=== PATIENT | male | born 1935 | race Caucasian/White ===

== ENCOUNTER → 2017-08-28 08:04 | Outpatient (CLI) | payer MEDICARE, BC, SELFPAY ==
[2017-08-28 09:46] LABS: Absolute Lymphocyte Count 1.55 X10^3/ul (0.83-4.51); Absolute Neutrophil Count 3.2 X10^3/uL (2.0-7.7); Basophil# 0.02 X10^3/uL; Basophil% 0.3 % (0-1); Eosinophil# 0.44 X10^3/uL; Eosinophils% 7.3 % (0-5); Hematocrit 51.4 % (40-54); Hemoglobin 16.9 g/dl (13.0-16.5); Lymphocyte # 1.55 X10^3/ul (4.0); Lymphocyte % 25.6 % (19-41); Mean Corp Hgb Conc 32.9 g/gl (32-36); Mean Corpuscular Hgb 31.6 pg (27.0-32.0); Mean Corpuscular Volume 96.3 fL (80-94); Mean Platelet Vol. 10.6 fl (6.2-12.0); Monocyte# 0.81 X10^3/uL; Monocyte% 13.4 % (0-10); Neutrophil # 3.22 X10^3/uL (2.7-7.7); Neutrophil % 53.2 % (47-70); Platelet Count 220 K/mm3 (150-450); RBC Distribution Width SD 49.3 fl (35.1-43.9); Red Blood Count 5.34 M/mm3 (4.6-6.2); White Blood Count 6.1 K/mm3 (4.4-11.0)
[2017-08-28 09:49] LABS: POSITIVE COUNT NO; POSITIVE DIFFERENTIAL NO; POSITIVE MORPHOLOGY NO
[2017-08-28 10:12] LABS: AST(SGOT) 23 U/L (15-37); Alanine Aminotransfer ALT/SGPT 28 U/L (16-61); Alkaline Phosphatase 76 U/L (45-117); Anion Gap 6 (5-15); BUN 22 mg/dL (7-18); BUN/Creat Ratio 17.2 RATIO (10-20); Calcium,Total 9.1 mg/dL (8.5-10.1); Chloride 98 mmol/L (98-107); Cholesterol 188 mg/dL (200); Creatinine, Serum 1.28 mg/dL (0.70-1.30); EST Glomerular Filtration Rate 58 mL/min (>60); Est Glom Filt Rate - Afr Amer 70 mL/min (>60); Globulin 4.1 g/dL (2.2-4.2); Glucose 82 mg/dL (74-106); High Density Lipoprotein 37 mg/dL; Potassium 3.9 mmol/L (3.5-5.1); Protein, Total 8.1 g/dL (6.4-8.2); Sodium Level 134 mmol/L (136-145); Triglycerides 160 mg/dL; Very Low Density Lipoprotein 32 mg/dL (5-40)
[2017-08-29 09:32] LABS: Vitamin D,25 Hydroxy 55.6 ng/mL (29.95-100.01)
== END ==
PROVIDERS: Family Provider Family Medicine; PCP Family Medicine; Visit Provider Family Medicine
DX: Z00.00 Encounter for general adult medical examination without abnormal findings (principal); L40.9 Psoriasis, unspecified; R29.890 Loss of height
CPT/HCPCS: 36415; 80053; 80061; 82306; 84443; 85025

== ENCOUNTER → 2018-01-22 10:06 | Outpatient (CLI) | payer MEDICARE, BC, SELFPAY ==
[2018-01-22 12:21] LABS: ALB/GLOB Ratio 0.9 RATIO (0.9-2.4); AST(SGOT) 21 U/L (15-37); Alanine Aminotransfer ALT/SGPT 26 U/L (16-61); Albumin, Serum 3.8 g/dL (3.2-5.0); Alkaline Phosphatase 76 U/L (45-117); Anion Gap 5 (5-15); BUN 21 mg/dL (7-18); BUN/Creat Ratio 17.4 RATIO (10-20); Chloride 100 mmol/L (98-107); Creatinine, Serum 1.21 mg/dL (0.70-1.30); EST Glomerular Filtration Rate 61 mL/min (>60); Est Glom Filt Rate - Afr Amer 74 mL/min (>60); Globulin 4.1 g/dL (2.2-4.2); Glucose 93 mg/dL (74-106); Potassium 4.1 mmol/L (3.5-5.1); Protein, Total 7.9 g/dL (6.4-8.2); Sodium Level 136 mmol/L (136-145)
[2018-01-22 12:46] LABS: Hematocrit 47.3 % (40-54); Hemoglobin 15.7 g/dl (13.0-16.5); Mean Corp Hgb Conc 33.2 g/gl (32-36); Mean Corpuscular Hgb 31.8 pg (27.0-32.0); Mean Corpuscular Volume 95.7 fL (80-94); Mean Platelet Vol. 10.7 fl (6.2-12.0); Platelet Count 222 K/mm3 (150-450); RBC Distribution Width CV 14.2 % (11.6-14.6); RBC Distribution Width SD 48.6 fl (35.1-43.9); Red Blood Count 4.94 M/mm3 (4.6-6.2); Scan Indicated on CBC? Y/N NO; White Blood Count 6.7 K/mm3 (4.4-11.0)
[2018-01-29 20:07] LABS: QNTFERON TB Ag Minus Nil Value < 0 IU/mL (.); QNTFERON TB Ag Value 0.03 IU/mL (.); QNTFERON TB Mitogen Value > 10.00 IU/mL (.); QNTFERON TB Nil Value 0.06 IU/mL (.)
[2018-01-30 14:09] LABS: QNTIFERON TB Gold Negative (Negative)
== END ==
PROVIDERS: Family Provider Family Medicine; PCP Family Medicine; Visit Provider Dermatology Pediatric Dermatology
DX: L40.0 Psoriasis vulgaris (principal); Z79.899 Other long term (current) drug therapy
CPT/HCPCS: 36415; 80053; 85027; 86480

== ENCOUNTER → 2018-01-28 15:24 | Outpatient (CLI) | payer MEDICARE, BC, SELFPAY ==
[2018-01-30 05:08] LABS: HEPATITIS B SURFACE AG Negative (Negative); Hepatitis A AB, Total Positive (Negative); Hepatitis A IgM Antibody Negative (Negative); Hepatitis B Core AB IgM Negative (Negative); Hepatitis B Core Ab Total Negative (Negative); Hepatitis C Ab <0.1 s/co ratio (0.0-0.9)
[2018-01-30 13:43] LABS: Hep B Surface Antibodies Non Reactive (.)
== END ==
PROVIDERS: Family Provider Family Medicine; PCP Family Medicine; Visit Provider Dermatology Pediatric Dermatology
DX: L40.0 Psoriasis vulgaris (principal); Z79.899 Other long term (current) drug therapy
CPT/HCPCS: 86704; 86705; 86706; 86708; 86709; 86803; 87340

== ENCOUNTER → 2018-08-28 10:55 | Outpatient (CLI) | payer MEDICARE, BC, SELFPAY ==
[2018-08-28 12:47] LABS: Microalbumin,Random Urine 16.2 mg/L (NO RANGE EST.); Microalbumin:Creatinine Ratio 9.8 mg/g CRE (<30 mg/g CRE)
[2018-08-28 12:56] LABS: Absolute Lymphocyte Count 1.85 X10^3/ul (0.83-4.51); Absolute Neutrophil Count 5.4 X10^3/uL (2.0-7.7); Basophil# 0.02 X10^3/uL; Basophil% 0.2 % (0-1); Eosinophils% 4.7 % (0-5); Hematocrit 48.9 % (40-54); Hemoglobin 16.3 g/dl (13.0-16.5); Lymphocyte # 1.85 X10^3/ul (4.0); Lymphocyte % 21.7 % (19-41); Mean Corp Hgb Conc 33.3 g/gl (32-36); Mean Corpuscular Volume 96.1 fL (80-94); Mean Platelet Vol. 10.8 fl (6.2-12.0); Monocyte# 0.86 X10^3/uL; Monocyte% 10.1 % (0-10); Neutrophil # 5.38 X10^3/uL (2.7-7.7); Neutrophil % 63.1 % (47-70); Platelet Count 244 K/mm3 (150-450); Red Blood Count 5.09 M/mm3 (4.6-6.2); White Blood Count 8.5 K/mm3 (4.4-11.0)
[2018-08-28 13:00] LABS: POSITIVE COUNT NO; POSITIVE DIFFERENTIAL NO; POSITIVE MORPHOLOGY NO
[2018-08-28 13:16] LABS: ALB/GLOB Ratio 1.1 RATIO (0.9-2.4); AST(SGOT) 26 U/L (15-37); Alanine Aminotransfer ALT/SGPT 26 U/L (16-61); Albumin, Serum 4.1 g/dL (3.2-5.0); Alkaline Phosphatase 74 U/L (45-117); Anion Gap 10 (5-15); BUN 24 mg/dL (7-18); BUN/Creat Ratio 20.5 RATIO (10-20); Calcium,Total 9.3 mg/dL (8.5-10.1); Chloride 101 mmol/L (98-107); Creatinine, Serum 1.17 mg/dL (0.70-1.30); EST Glomerular Filtration Rate 64 mL/min (>60); Est Glom Filt Rate - Afr Amer 77 mL/min (>60); Globulin 3.6 g/dL (2.2-4.2); Glucose 73 mg/dL (74-106); Potassium 4.4 mmol/L (3.5-5.1); Protein, Total 7.7 g/dL (6.4-8.2); Sodium Level 139 mmol/L (136-145)
[2018-08-28 13:24] LABS: Vitamin D,25 Hydroxy 48.7 ng/mL (29.95-100.01)
== END ==
PROVIDERS: Family Provider Family Medicine; PCP Family Medicine; Referring Provider Family Medicine; Visit Provider Family Medicine
DX: L40.9 Psoriasis, unspecified (principal); I10 Essential (primary) hypertension; R79.89 Other specified abnormal findings of blood chemistry; D58.2 Other hemoglobinopathies
CPT/HCPCS: 36415; 80053; 82043; 82306; 82570; 84443; 85025

== ENCOUNTER → 2019-08-12 10:19 | Outpatient (CLI) | payer MEDICARE, BC, SELFPAY ==
--- NOTE | 2019-08-12 10:28 | RAD_ITS ---
HISTORY: Left hip pain that radiates down leg. AP pelvis and 2 views of the left hip. Findings: Pelvic phleboliths. Bilateral femoral acetabular osteoarthritis. Iliac wing, ischial tuberosity, and trochanteric enthesophytes. Bowel gas pattern in the pelvis is normal. No bones are fractured. RAD/HIP, UNI W/ Pelvis 2-3 Views IMPRESSION: Mild bilateral hip arthritis without fracture or dislocation. at 0553 Reported and signed by: Angel Alicea MD Electronically Signed: Angel Alicea MD at 5:52 EST Tel , Service support ,
[2019-08-12 10:31] LABS: Bacteria 0 SEEN /hpf (None Seen); Mucous, Urine 0 SEEN /hpf (<or=2+); Red Blood Cells-Urine 0 SEEN /hpf (0-5); White Blood Cells 0 SEEN /hpf (0-5)
[2019-08-12 12:26] LABS: Absolute Neutrophil Count 4.5 X10^3/uL (2.0-7.7); Basophil# 0.04 X10^3/uL; Basophil% 0.5 % (0-1); Hematocrit 51.4 % (40-54); Hemoglobin 16.7 g/dL (13.0-16.5); Lymphocyte % 25.2 % (19-41); Mean Corp Hgb Conc 32.5 g/dL (32-36); Mean Corpuscular Hgb 30.9 pg (27.0-32.0); Mean Corpuscular Volume 95.2 fL (80-94); Mean Platelet Vol. 10.8 fl (6.2-12.0); Monocyte% 10.6 % (0-10); NRBC Flagged by Analyzer 0 % (0-5); Neutrophil # 4.48 X10^3/uL (2.7-7.7); Neutrophil % 59.4 % (47-70); Platelet Count 258 K/mm3 (150-450); RBC Distribution Width CV 13.4 % (11.6-14.6); RBC Distribution Width SD 46.6 fl (35.1-43.9); White Blood Count 7.5 K/mm3 (4.4-11.0)
[2019-08-12 12:27] LABS: Color, Urine Yellow (Yellow); Glucose, Dipstick Normal (Normal); Ketone-Dipstick Negative (Negative); Leukocyte Esterase-Dipstick Negative /ul (Negative); Nitrite-Dipstick Negative (Negative); Occult Blood-Urine Negative /ul (Negative); Protein-Dipstick Negative (Negative); Urine Bilirubin Dipstick Negative (Negative); Urine Clarity Clear (Clear); Urine Urobilinogen Normal (Normal)
[2019-08-12 12:39] LABS: Squamous Epithelial Cells - UA 0-5 SEEN /hpf (0-5)
[2019-08-12 12:42] LABS: AST(SGOT) 22 U/L (15-37); Alanine Aminotransfer ALT/SGPT 27 U/L (16-61); Albumin, Serum 4.1 g/dL (3.2-5.0); Alkaline Phosphatase 74 U/L (45-117); Anion Gap 5 (5-15); BUN 20 mg/dL (7-18); BUN/Creat Ratio 15.5 RATIO (10-20); CRP < 2.90 mg/L (0.0-3.0); Calcium,Total 9.3 mg/dL (8.5-10.1); Chloride 99 mmol/L (98-107); Creatinine, Serum 1.29 mg/dL (0.70-1.30); EST Glomerular Filtration Rate 57 mL/min (>60); Est Glom Filt Rate - Afr Amer 69 mL/min (>60); Globulin 4.1 g/dL (2.2-4.2); Glucose 88 mg/dL (74-106); Potassium 4.1 mmol/L (3.5-5.1); Protein, Total 8.2 g/dL (6.4-8.2); Sodium Level 134 mmol/L (136-145)
== END ==
PROVIDERS: PCP Family Medicine; Referring Provider Family Medicine; Visit Provider Family Medicine
DX: R10.32 Left lower quadrant pain (principal)
CPT/HCPCS: 36415; 73502; 80053; 81001; 85025; 86140

== ENCOUNTER → 2019-08-14 06:46 | Outpatient (CLI) | payer MEDICARE, BC, SELFPAY ==
--- NOTE | 2019-08-14 06:49 | CT_ITS ---
HISTORY: LLQ pain x 1 week, radiates into back and down left leg. Hx kidney stones with prior lithotripsy, appendectomy, left inguinal hernia repair x 4, hypertension. TECHNIQUE: Helically acquired images were obtained of the abdomen and pelvis without oral or IV contrast. A radiation dose optimization technique was used for this scan. COMPARISON: None FINDINGS: # of images incl. paperwork: 486 LUNG BASES: clear. CT abdomen: Many enthesophytes are present within the thoracic spine at many levels of degenerative disc disease. Facet arthropathy is present. 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 The gallbladder remains. Liver, spleen, pancreas, and adrenal glands are normal. Multiple hypodense masses are present on both kidneys. The largest of these, exophytic to the posterior aspect of the left kidney measures 6.1 cm. It has a central density of 4 Hounsfield units.. The aorta is diseased with atherosclerotic plaque, but without aneurysm or dissection. There is no intra-or extrahepatic biliary ductal dilatation. CT pelvis: No ascites is present. The the prostate gland is enlarged indenting into the posterior inferior aspect of the urinary bladder. At the base of the bladder there are 2 calcifications. One of these appears to be within the urinary bladder, the other appears to be outside of the urinary bladder. It is feasible that the second stone outside of the urinary bladder is within the urinary bladder, or is even eroded into a diverticulum. No surrounding soft tissue mass, hematoma, or neuroma.. The appendix is normal. Coronal series 601 image 65. The bladder is mostly decompressed but does contain the 2 stones. Diverticulosis within the sigmoid colon and the descending colon inferiorly. Bowel gas pattern otherwise is normal. CT/Abdomen/Pelvis without Cont IMPRESSION: Prostatic hypertrophy. Within the dependent posterior aspect of the urinary bladder there are 2 calcifications. These likely represent bladder stones. One of these may be within a small bladder diverticulum. Diverticulosis without diverticulitis. Multiple bilateral renal cysts. Nonobstructing right nephrolithiasis without hydronephrosis or hydroureter. Individualized dose optimization techniques were used for this CT. at 0603 Reported and signed by: Angel Alicea MD Electronically Signed: Angel Alicea MD at 6:01 EDT Tel , Service support ,
== END ==
PROVIDERS: PCP Family Medicine; Referring Provider Family Medicine; Visit Provider Family Medicine
DX: R10.32 Left lower quadrant pain (principal)
CPT/HCPCS: 74176

== ENCOUNTER → 2019-08-19 09:56 | Outpatient (CLI) | payer MEDICARE, BC, SELFPAY ==
--- NOTE | 2019-08-19 09:59 | NM_ITS ---
CLINICAL: 83-year-old male with reported history of left hip pain. THREE PHASE PELVIS- WHOLE BODY RADIONUCLIDE 99m Tc MDP BONE SCINTIGRAPHY COMPARISON: Plain film radiograph report left hip 08/12/2019, CT of the abdomen-pelvis report 08/14/2019 FINDINGS: Following the intravenous administration of 26.0 mCi of 99m Tc MDP, bone images reveal: 1. The flow and immediate static blood pool acquisitions of the pelvis demonstrate symmetric-appearing normal arterial and venous phase distribution of the radiopharmaceutical. 2. Delayed whole body acquisitions demonstrate increased tracer concentration in the lower cervical spine posteriorly on the left-midline, acromioclavicular and glenohumeral compartments of both shoulders, eighth and 11th thoracic vertebrae posteriorly on the right, third lumbar vertebra posteriorly on the right, patellofemoral compartment of the right knee, posterior compartment of the right ankle. 3. Enhanced tracer concentration is observed in the greater trochanteric aspect of the left proximal femur. 4. The remaining skeletal structures are scintigraphically unremarkable with normal-appearing renal images and urinary bladder activity identified. NM/Bone Scan Limited Area IMPRESSION: 1. The increase in radiopharmaceutical concentration identified in the greater trochanteric aspect of the left proximal femur is most consistent with periostitis and/or trochanteric bursitis. 2. Degenerative arthritis appears expressed in the cervical, thoracic and lumbar spine, bilateral shoulders, right knee and right ankle. Electronically Signed: Jared Hawley DO at 10:35 EDT Tel , Service support ,
== END ==
PROVIDERS: PCP Family Medicine; Referring Provider Family Medicine; Visit Provider Family Medicine
DX: M25.552 Pain in left hip (principal); R10.32 Left lower quadrant pain; N20.0 Calculus of kidney
CPT/HCPCS: 78300

== ENCOUNTER 2019-08-25 11:06 | Day surgery (SDC) | payer MEDICARE, BC, SELFPAY ==
[2019-08-25 11:30] VITALS: BP 134/66; PULSE 82; RESP 16; TEMP 36.6; O2SAT 97; BMI 26.6
[2019-08-25] MEDS: Lactated Ringers 1,000 ML 100 ML IV (11:40)
[2019-08-25] MEDS: Cefazolin 2 GM in 0.9% Normal Saline 100 ML IV (12:48)
--- NOTE | 2019-08-25 12:58 | PCM.DC.URO ---
Discharge Diet: Light diet - advance as tolerated Discharge Activity: Return to Normal Activity Call your doctor if your incision/area has: Continuous Slow Oozing, Sudden Increased Bleeding Call your doctor if you observe: Fever of 101 or Higher Allergies/Adverse Reactions: Allergies Penicillins Adverse Reaction (Verified 08/25/19 11:20) Other-nervous NERVOUS Medications to take at Discharge albuterol sulfate 90 mcg/actuation aerosol inhaler 2 puff INHALATION Q4H PRN 10/24/17 cod liver oil 1 cap PO QDAY 10/24/17 multivitamin 1 tab PO QDAY 10/24/17 Alfuzosin HCl [Alfuzosin HCl ER] 10 mg PO QHS 08/19/19 Lisinopril [Zestril] 10 mg PO DAILY 08/19/19 Ciprofloxacin [Cipro] 500 mg PO BID #14 tab 08/25/19 The following prescriptions were given: Ciprofloxacin [Cipro] 500 mg PO BID #14 tab Transmission Status: Pending to [facility] Primary Care Physician: Abimael Lewis MD [Primary Care Provider] - Test Results: Test results from this visit will be discussed in further detail at your follow-up appointment, if applicable. Please Follow Up With: Ezequiel Bull MD When: in 2 weeks, please call to make an appointment.
[2019-08-25] MEDS: Lubricating Jelly 60 GM Tube 30 GM TOPICAL (13:05)
--- NOTE | 2019-08-25 13:14 | PCM.OPRPT ---
Report of Operation Date of Procedure: 08/25/19 Pre-Operative Diagnosis: Bladder stones multiple and large, 2.5 cm Post-Operative Diagnosis: Same Surgery/Procedure Performed:: Cystoscopy and cystolitholapaxy and laser bladder stones Description of Surgical Findings:: Patient is male patient was found to have bladder stones within the bladder, the stones measured 2.5 centimeters in size in total. We talked about the etiology and possible reasons why he got bladder stones. Today we can do a diagnostic cystoscopy to evaluate the prostate and working to proceed with laser cystolitholapaxy and removal of bladder stones. We talked about the risk of the procedure including the risk of bleeding, risk of infection, risk of blood clot formation, the risk associated with anesthesia. Also discussed the possibility he may have trouble urinating and he may need a catheter afterwards. After discussion with the patient he is agreeable with proceeding with lasering the bladder stones. Patient was taken back to the operating room after smooth induction of anesthesia he was placed supine on the table and then in dorsolithotomy position, the penis and testicles were prepped and draped in the usual sterile fashion. I first went into the bladder with a 21 [place] rigid cystourethroscope the entire length of the urethra was normal the prostate demonstrated significant bilateral hypertrophy no median lobe and within the bladder I found stones that measured up to the size of 2.5 cm. The newsome of the bladder also we found to have significant trabeculation and multiple saccules and diverticuli within the bladder. . No large diverticuli was seen within the bladder we then put in a 24 [place] sheath into the bladder and used the laser bridge and then we proceeded with laser lithotripsy using the laser fiber to break the stones into tiny little pieces and evacuated the pieces during the case piece by piece. At the end of the case there was no injury to the urethra no injury to the prostate the left and right ureteral orifice were still patent and open all the stone fragments were removed there was little to no bleeding within the bladder. The anesthesia was reversed he was taken back to the PACU in good condition if he is able to urinate he will go home without a catheter if he is not able to urinate and will need a catheter after the procedure patient was aware this will follow-up in the office afterwards. Type of Anesthesia:: General Drains: none - Admit VTE Documentation VTE Present on Admission: No VTE Mechan Device Prophylaxis: SCD's
[2019-08-25 13:19] VITALS: BP 130/74; BP 134/66; PULSE 92; RESP 16; TEMP 36.9; O2SAT 95
[2019-08-25 13:30] VITALS: BP 131/75; BP 134/66; PULSE 83; RESP 16; O2SAT 94
[2019-08-25 13:45] VITALS: BP 127/66; BP 134/66; PULSE 77; RESP 16; O2SAT 100
[2019-08-25 13:55] VITALS: BP 124/67; BP 134/66; PULSE 74; RESP 16; TEMP 37; O2SAT 94
[2019-08-25 14:51] VITALS: BP 134/66; BP 161/87; PULSE 83; RESP 18; TEMP 36.6; O2SAT 96
--- NOTE | 2019-08-27 11:16 | PCM.HP.STD ---
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 Esophageal reflux K21.9 HTN (hypertension) I10 Supraclavicular adenopathy R59.0 Allergies Penicillins Adverse Reaction (Verified 08/25/19 11:20) Other-nervous NERVOUS Home Medications: Ambulatory Orders Medication Instructions Recorded albuterol sulfate 90 mcg/actuation 2 puff INHALATION Q4H PRN 10/24/17 aerosol inhaler cod liver oil 1 cap PO QDAY 10/24/17 multivitamin 1 tab PO QDAY 10/24/17 Alfuzosin HCl [Alfuzosin HCl ER] 10 mg PO QHS 08/19/19 Lisinopril [Zestril] 10 mg PO DAILY 08/19/19 Ciprofloxacin [Cipro] 500 mg PO BID #14 tab 08/25/19 Smoking Status: Never smoker Tobacco Use: Non-smoker VTE Information - Inpt Only VTE Present on Admission: No - Physical Exam Vitals/I&O's: Vital Signs Temp Pulse Resp BP Pulse Ox 97.9 F 83 18 161/87 H 96 08/25/19 14:51 08/25/19 14:51 08/25/19 14:51 08/25/19 14:51 08/25/19 14:51 Oxygen Delivery Method Room Air Weight: 79.3 kg Body Mass Index (BMI) 26.6 Intake and Output for Last 24 Hours 08/25/19 08/26/19 08/27/19 23:59 23:59 23:59 Intake Total 1110 / 1110 Balance 1110 / 1110 General: Alert, Oriented x3, Cooperative HEENT: Atraumatic, PERRLA, EOMI, Normocephalic Neck: Supple, No JVD, Negative Carotid Bruits Lungs: Clear to auscultation, Normal air movement Cardiovascular: Regular rate, No murmurs Abdomen: Bowel Sounds Present, Soft, Non Tender Extremities: No edema, Capillary Refill Less than 3 Seconds Skin: No rashes, No breakdown Musculoskeletal: No Tenderness to Palpation of Joints or Extremities Neurological: Cranial nerves II-XII grossly intact Psych/Mental Status: Normal Affect, Appropriate Assessment/Plan Plan to proceed with laser bladder stones.
== END 2019-08-25 14:56 | disposition home or self-care (01) ==
LOC: SDC 11:06 → AC 11:09
PROVIDERS: PCP Family Medicine; Referring Provider Urology; Visit Provider Urology
PROC: (CPT 52318; principal; 2019-08-25 13:40)
DX: N21.0 Calculus in bladder (principal); N32.89 Other specified disorders of bladder; N32.3 Diverticulum of bladder; K21.9 Gastro-esophageal reflux disease without esophagitis; I10 Essential (primary) hypertension; J47.9 Bronchiectasis, uncomplicated; Z79.51 Long term (current) use of inhaled steroids; Z79.899 Other long term (current) drug therapy
CPT/HCPCS: 52318; J7120; J2405

== ENCOUNTER → 2019-09-03 11:33 | Outpatient (CLI) | payer MEDICARE, BC, SELFPAY ==
[2019-08-25 11:30] VITALS: BMI 26.6
--- NOTE | 2019-09-03 11:35 | RAD_ITS ---
STUDY: X-RAY CHEST REASON FOR EXAM: Male, 83 years old. BRONCHIECTASIS TECHNIQUE: PA and lateral views of the chest. COMPARISON: Comparison is made with prior examination dated July 02, 2017. FINDINGS: The lungs are clear and expanded. Scattered calcified granulomas. No acute abnormality is seen. There is no demonstrated pleural abnormality. Normal size heart. Normal mediastinum and bettye. Normal visualized pulmonary arteries. There is atherosclerotic calcification of the aortic arch with tortuosity. There are diffuse degenerative changes of the visualized thoracic spine. Normal visualized ribs, clavicles, and shoulders. There is no demonstrated abnormality of the visualized soft tissue structures of the upper abdomen. RAD/Chest PA and Lateral IMPRESSION: Stable examination. No acute abnormality is seen. Electronically Signed: Kei Hemphill, at 14:35 EDT , Service support ,
== END ==
PROVIDERS: PCP Family Medicine; Referring Provider Family Medicine; Visit Provider Family Medicine
DX: J47.9 Bronchiectasis, uncomplicated (principal)
CPT/HCPCS: 71046

== ENCOUNTER → 2019-09-07 08:17 | Outpatient (CLI) | payer MEDICARE, BC, SELFPAY ==
[2019-08-25 11:30] VITALS: BMI 26.6
--- NOTE | 2019-09-07 09:00 | RAD_ITS ---
PROCEDURE: Fluoroscopic guided Hip Injection DATE: September 07, 2019 INDICATION: Male, 83 years old. Chronic left hip pain. PHYSICIAN: Kei Hemphill M.D. MEDICATIONS: 80 mg of betamethasone and 2 cc of 2% lidocaine. 2% Lidocaine administered subcutaneously for local anesthesia. ACCESS SITE: Left hip. NEEDLE: 22-gauge spinal needle. FLUOROSCOPY TIME (if supplied): (0:35) minutes/seconds FINDINGS: The risks, benefits, and alternatives to the procedure were explained to the patient. The specific risks of bleeding, infection, and neurovascular injury were detailed and accepted. Witnessed informed consent was obtained. A 22-gauge spinal needle was positioned under radiographic fluoroscopic localization. Approximately 2 cc of Isovue-300 instilled for localization purposes. Medication was then injected. The patient tolerated the procedure well without any immediate complications. RAD/Inj/Asp Gera Jt Should/Hip/Knee IMPRESSION: 1. Successful fluoroscopic guided hip injection. Electronically Signed: Kei Hemphill, at 9:49 EDT , Service support ,
== END ==
PROVIDERS: PCP Family Medicine; Referring Provider Family Medicine; Visit Provider Family Medicine
DX: M70.72 Other bursitis of hip, left hip (principal); G89.29 Other chronic pain
CPT/HCPCS: 20610; 77002; Q9967

== ENCOUNTER → 2019-09-17 16:01 | Outpatient (CLI) | payer MEDICARE, BC, SELFPAY ==
[2019-08-25 11:30] VITALS: BMI 26.6
--- NOTE | 2019-09-17 16:11 | MRI_ITS ---
STUDY: MRI LEFT HIP REASON FOR EXAM: Male, 83 years old. LEFT hip/groin pain 1.5 months, no injury TECHNIQUE: Standardized fat and water weighted pulse sequences were obtained in all 3 orthogonal planes. COMPARISON: None. FINDINGS: Normal hip joint without articular joint space narrowing. Normal labrum. Normal femoral head. Normal femoral neck and intratrochanteric region. Lobulated 1.3 cm T2 hyperintense lesion in the posteromedial acetabulum area Degenerative cyst in the right acetabulum laterally, likely degenerative. This may be associated with labral tear. Marrow signal is otherwise unremarkable. No evidence of fracture, bone contusion, or avascular necrosis. Normal gluteus minimus, medius and iliopsoas tendons and distal insertions. There is no trochanteric, iliopsoas or iliopectineal bursitis. Prostate gland is heterogeneous. Prostate gland measures 3.8 x 4.8 x 5.5 cm. Irregular bladder wall with multiple diverticula. MRI/Lower Ext Joint Only (Routine) IMPRESSION: 1. 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 Left hip is otherwise unremarkable. 2. Degenerative changes of the right acetabulum, with question of underlying labral tear. 3. Heterogeneous, enlarged prostate gland. 4. Possible neurogenic bladder or outlet obstruction. Electronically Signed: Bita Bardales MD at 17:47 EDT Tel , Service support ,
== END ==
PROVIDERS: PCP Family Medicine; Referring Provider Family Medicine; Visit Provider Family Medicine
DX: M86.8X5 Other osteomyelitis, thigh (principal)
CPT/HCPCS: 73721

== ENCOUNTER → 2020-10-05 08:28 | Outpatient (CLI) | payer MEDICARE, OTHER, SELFPAY ==
[2020-10-05 10:15] LABS: Microalbumin,Random Urine 27.6 mg/L (NO RANGE EST.); Microalbumin:Creatinine Ratio 18.2 mg/g CRE (<30 mg/g CRE)
[2020-10-05 10:17] LABS: AST(SGOT) 19 U/L (15-37); Alanine Aminotransfer ALT/SGPT 25 U/L (16-61); Albumin, Serum 3.8 g/dL (3.2-5.0); Alkaline Phosphatase 73 U/L (45-117); Anion Gap 4 (5-15); BUN 25 mg/dL (7-18); BUN/Creat Ratio 19.8 RATIO (10-20); Calcium,Total 9.4 mg/dL (8.5-10.1); Chloride 106 mmol/L (98-107); Cholesterol 191 mg/dL (200); Creatinine, Serum 1.26 mg/dL (0.70-1.30); EST Glomerular Filtration Rate 58 mL/min (>60); Est Glom Filt Rate - Afr Amer 70 mL/min (>60); Glucose 100 mg/dL (74-106); High Density Lipoprotein 41 mg/dL; PSA,Total- Diagnostic 2.87 ng/mL (0.0-4.0); Protein, Total 7.8 g/dL (6.4-8.2); Sodium Level 136 mmol/L (136-145); Triglycerides 112 mg/dL; Very Low Density Lipoprotein 22 mg/dL (5-40)
== END ==
PROVIDERS: PCP Family Medicine; Referring Provider Family Medicine; Visit Provider Family Medicine
DX: I10 Essential (primary) hypertension (principal); E78.5 Hyperlipidemia, unspecified; Z12.5 Encounter for screening for malignant neoplasm of prostate
CPT/HCPCS: 36415; 80053; 80061; 82043; 82570; 84153

== ENCOUNTER → 2020-11-27 12:25 | Outpatient (CLI) | payer MEDICARE, OTHER, SELFPAY ==
[2020-11-27 12:32] LABS: Bacteria 0 SEEN /hpf (None Seen); Red Blood Cells-Urine 0 SEEN /hpf (0-5)
[2020-11-27 15:13] LABS: Color, Urine Yellow (Yellow); Glucose, Dipstick Normal (Normal); Ketone-Dipstick Negative (Negative); Leukocyte Esterase-Dipstick 25 /ul (Negative); Nitrite-Dipstick Negative (Negative); Occult Blood-Urine Negative /ul (Negative); Protein-Dipstick 15 mg/dl (Negative); Urine Bilirubin Dipstick Negative (Negative); Urine Clarity Sl. Cloudy (Clear); Urine Urobilinogen Normal (Normal)
[2020-11-27 15:17] LABS: Absolute Lymphocyte Count 1.91 X10^3/uL (0.83-4.51); Basophil# 0.03 X10^3/uL; Basophil% 0.4 % (0-1); Eosinophil# 0.36 X10^3/uL; Eosinophils% 5.1 % (0-5); Hematocrit 47.9 % (40-54); Hemoglobin 15.7 g/dL (13.0-16.5); Lymphocyte # 1.91 X10^3/ul (0.83-4.51); Lymphocyte % 27.1 % (19-41); Mean Corp Hgb Conc 32.8 g/dL (32-36); Mean Corpuscular Hgb 31.6 pg (27.0-32.0); Mean Corpuscular Volume 96.4 fL (80-94); Mean Platelet Vol. 10.7 fl (6.2-12.0); Monocyte# 0.74 X10^3/uL; Monocyte% 10.5 % (0-10); NRBC Flagged by Analyzer 0 % (0-5); Neutrophil # 3.95 X10^3/uL (2.7-7.7); Neutrophil % 56.2 % (47-70); Platelet Count 246 K/mm3 (150-450); RBC Distribution Width CV 14.3 % (11.6-14.6); RBC Distribution Width SD 50.4 fl (35.1-43.9); Red Blood Count 4.97 M/mm3 (4.6-6.2)
[2020-11-27 15:26] LABS: Amorphous Sediment 1+ URATE; Mucous, Urine 1+ /hpf (<or=2+); Squamous Epithelial Cells - UA 0-5 SEEN /hpf (0-5); White Blood Cells 5-10 SEEN /hpf (0-5)
[2020-11-27 15:27] LABS: AST(SGOT) 17 U/L (15-37); Alanine Aminotransfer ALT/SGPT 24 U/L (16-61); Albumin, Serum 3.8 g/dL (3.2-5.0); Alkaline Phosphatase 74 U/L (45-117); Anion Gap 8 (5-15); BUN 28 mg/dL (7-18); CRP 3.73 mg/L (0.0-3.0); Calcium,Total 9.3 mg/dL (8.5-10.1); Chloride 101 mmol/L (98-107); Creatinine, Serum 1.27 mg/dL (0.70-1.30); EST Glomerular Filtration Rate 58 mL/min (>60); Est Glom Filt Rate - Afr Amer 70 mL/min (>60); Globulin 3.9 g/dL (2.2-4.2); Glucose 93 mg/dL (74-106); Protein, Total 7.7 g/dL (6.4-8.2); Sodium Level 137 mmol/L (136-145)
== END ==
PROVIDERS: PCP Family Medicine; Referring Provider Family Medicine; Visit Provider Family Medicine
DX: K57.32 Diverticulitis of large intestine without perforation or abscess without bleeding (principal); R35.0 Frequency of micturition
CPT/HCPCS: 36415; 80053; 81001; 85025; 86140; 87086; 87088

== ENCOUNTER → 2020-12-25 10:56 | Outpatient (CLI) | payer MEDICARE, OTHER, SELFPAY ==
[2020-12-25 12:24] LABS: Hematocrit 48.7 % (40-54); Mean Corp Hgb Conc 32.9 g/dL (32-36); Mean Corpuscular Hgb 31.8 pg (27.0-32.0); Mean Corpuscular Volume 96.8 fL (80-94); Mean Platelet Vol. 10.5 fl (6.2-12.0); Platelet Count 249 K/mm3 (150-450); RBC Distribution Width CV 14.2 % (11.6-14.6); Red Blood Count 5.03 M/mm3 (4.6-6.2)
[2020-12-25 12:30] LABS: Erythrocyte Sedimentation Rate 13 mm/hr (0-20)
[2020-12-25 13:15] LABS: AST(SGOT) 21 U/L (15-37); Alanine Aminotransfer ALT/SGPT 24 U/L (16-61); Albumin, Serum 3.9 g/dL (3.2-5.0); Alkaline Phosphatase 78 U/L (45-117); Anion Gap 7 (5-15); BUN 30 mg/dL (7-18); BUN/Creat Ratio 22.2 RATIO (10-20); CRP < 2.90 mg/L (0.0-3.0); Calcium,Total 9.4 mg/dL (8.5-10.1); Chloride 102 mmol/L (98-107); Creatinine, Serum 1.35 mg/dL (0.70-1.30); EST Glomerular Filtration Rate 54 mL/min (>60); Est Glom Filt Rate - Afr Amer 65 mL/min (>60); Glucose 80 mg/dL (74-106); Potassium 4.1 mmol/L (3.5-5.1); Protein, Total 7.9 g/dL (6.4-8.2); Sodium Level 134 mmol/L (136-145)
== END ==
PROVIDERS: PCP Family Medicine; Visit Provider Family Medicine
DX: R10.32 Left lower quadrant pain (principal)
CPT/HCPCS: 36415; 80053; 85027; 85652; 86140

== ENCOUNTER → 2021-01-01 06:56 | Outpatient (CLI) | payer MEDICARE, OTHER, SELFPAY ==
--- NOTE | 2021-01-01 06:57 | CT_ITS ---
STUDY: CT ABDOMEN AND PELVIS WITHOUT CONTRAST REASON FOR EXAM: Male, 85 years old. Persistent LLQ pain following antibiotic treatment. Hx BPH/diverticulitis. RADIATION DOSAGE (If Supplied By Facility): CTDIvol = ( 7.52 ) mGy, DLP = ( 415.19 ) mGycm TECHNIQUE: Transaxial images were obtained from the dome of the diaphragm to the symphysis pubis without oral contrast, and without intravenous contrast. Sagittal and coronal images were reconstructed. Individualized dose optimization techniques were used for this CT. COMPARISON: Comparison is made with prior study dated 08/14/2019. FINDINGS: Stable minimal bibasilar linear atelectasis. Coronary artery calcification. Normal liver. Normal gallbladder and extrahepatic biliary system. Normal spleen. Normal pancreas. Normal bilateral adrenal glands. Stable multiple bilateral renal cysts. The largest cyst in the right kidney measures 4.2 cm x 4 cm. A 3 mm calculus is seen in the lower pole calyx of the right kidney. The largest cyst in the left kidney measures 6.3 cm x 5.2 cm. There is a small hiatal hernia. Normal small intestine. There are multiple colonic diverticula consistent with diverticulosis. The appendix is visualized and appears normal. There is diffuse atherosclerotic calcification of the abdominal aorta and its major visceral branches., without a demonstrated aneurysm. Normal inferior vena cava. Normal retroperitoneum. There are at least 4 calculi seen in the urinary bladder. The largest is in the left side and measures 5 mm. There is enlargement of the prostate gland. It measures 4.8 cm x 4.6 cm. This causes indentation at the bladder base. Normal abdominal wall. There are diffuse degenerative changes of the visualized lumbar spine. 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 CT/Abdomen/Pelvis without Cont IMPRESSION: Sigmoid diverticulosis with no radiographic evidence of diverticulitis. Multiple bilateral renal cysts. Bladder calculi. Prostatic enlargement with indentation at the bladder base. Electronically Signed: Kei Hemphill MD at 9:01 EDT , Service support ,
== END ==
PROVIDERS: PCP Family Medicine; Referring Provider Family Medicine; Visit Provider Family Medicine
DX: R10.32 Left lower quadrant pain (principal); N40.0 Benign prostatic hyperplasia without lower urinary tract symptoms; K57.30 Diverticulosis of large intestine without perforation or abscess without bleeding
CPT/HCPCS: 74176

== ENCOUNTER → 2021-01-25 13:46 | Outpatient (CLI) | payer MEDICARE, OTHER, SELFPAY ==
--- NOTE | 2021-01-25 09:10 | EKG12_ITS ---
Test Reason : PREOP Blood Pressure : / mmHG Vent. Rate : 091 BPM Atrial Rate : 091 BPM P-R Int : 172 ms QRS Dur : 090 ms QT Int : 356 ms P-R-T Axes : 029 -33 066 degrees QTc Int : 437 ms Normal sinus rhythm Left axis deviation Abnormal ECG Confirmed by OLVIN VILLAGOMEZ, CARLOS ([id number]), editor sound TOVA CHANG ([id number]) on 01/29/2021 8:29:24 AM Referred By: Ezequiel Bull Confirmed By:CARLOS BAH MD
== END ==
PROVIDERS: Anesthesiology; PCP Family Medicine; Referring Provider Urology; Visit Provider Urology
DX: Z01.818 Encounter for other preprocedural examination (principal); U07.1 COVID-19
CPT/HCPCS: 87635; 93005; C9803; U0005; U0003

== ENCOUNTER 2021-02-02 14:13 | Inpatient (IN) | payer MEDICARE, OTHER, SELFPAY ==
[2021-02-02 14:15] VITALS: BP 120/68; PULSE 88; RESP 19; TEMP 37.4; O2SAT 91; BMI 27.2
--- NOTE | 2021-02-02 15:02 | RAD_ITS ---
EXAM: XR CHEST, 1 VIEW : 1937 CLINICAL INDICATION: covid TECHNIQUE: Frontal view of the chest. This report was created using [employer] report generation technology. COMPARISON: 09/03/2019 FINDINGS: LUNGS AND PLEURAL SPACES: There are interstitial opacities seen bilaterally. No pneumothorax. No effusion. HEART: Unremarkable. Cardiac silhouette not enlarged. MEDIASTINUM: Central airways and mediastinal contour are unremarkable. BONES/JOINTS: Unremarkable. SOFT TISSUES: Unremarkable. RAD/Chest 1 View (Portable) IMPRESSION: Mild interstitial opacities. There is no focal consolidation. at 1525 Reported and signed by: Kannan Lee MD Electronically Signed: Kannan Lee MD at 15:24 EDT Tel , Service support ,
[2021-02-02] MEDS: Acetaminophen 500 MG Tablet PO (15:05)
[2021-02-02] MEDS: 0.9% Normal Saline 1,000 ML 1000 ML IV (15:07)
[2021-02-02 15:17] LABS: Absolute Lymphocyte Count 0.81 X10^3/uL (0.83-4.51); Absolute Neutrophil Count 3.5 X10^3/uL (2.0-7.7); Basophil# 0.01 X10^3/uL; Basophil% 0.2 % (0-1); Eosinophil# 0.02 X10^3/uL; Eosinophils% 0.4 % (0-5); Hematocrit 45.2 % (40-54); Hemoglobin 15.4 g/dL (13.0-16.5); Lymphocyte # 0.81 X10^3/ul (0.83-4.51); Lymphocyte % 16.6 % (19-41); Mean Corp Hgb Conc 34.1 g/dL (32-36); Mean Corpuscular Hgb 31.6 pg (27.0-32.0); Mean Corpuscular Volume 92.8 fL (80-94); Mean Platelet Vol. 10.5 fl (6.2-12.0); Monocyte# 0.46 X10^3/uL; Monocyte% 9.4 % (0-10); NRBC Flagged by Analyzer 0 % (0-5); Neutrophil # 3.52 X10^3/uL (2.7-7.7); Neutrophil % 72.4 % (47-70); Platelet Count 196 K/mm3 (150-450); RBC Distribution Width CV 14.5 % (11.6-14.6); RBC Distribution Width SD 48.8 fl (35.1-43.9); Red Blood Count 4.87 M/mm3 (4.6-6.2); White Blood Count 4.9 K/mm3 (4.4-11.0)
[2021-02-02 15:35] LABS: Anion Gap 9 (5-15); BUN 28 mg/dL (7-18); Calcium,Total 8.8 mg/dL (8.5-10.1); Chloride 100 mmol/L (98-107); Creatinine, Serum 1.22 mg/dL (0.70-1.30); EST Glomerular Filtration Rate 60 mL/min (>60); Est Glom Filt Rate - Afr Amer 73 mL/min (>60); Estimated Creatinine Clearance 42.89 ml/min; Glucose 130 mg/dL (74-106); Potassium 3.9 mmol/L (3.5-5.1); Sodium Level 131 mmol/L (136-145)
--- NOTE | 2021-02-02 16:31 | EDS_ITS ---
HPI History of Present Illness Chief Complaint: Fever Narrative Narrative: Patient presenting for evaluation due to complications of coronavirus. Patient was having preoperative testing for surgery, and tested positive for coronavirus on the . Since then he has been quarantining at [facility], has had cough. He has not had significant nausea or vomiting but he does have diarrhea associated with this. This is been also associated with intermittent confusion, as well as frequent falls at home. Patient's daughter does stay with him, but states that he has been very difficult to care for and has been doing things like standing in front of the microwave punching buttons but not knowing what he is doing. Patient denies any chest pain. Patient tells me that the only reason he is here is to see if I am still testing positive [facility] Medical History Bronchiectasis without acute exacerbation Chronic nonallergic rhinitis Constipation Esophageal reflux History of diverticulitis History of kidney stones HTN (hypertension) Non-smoker Prostate disease RML pneumonia Supraclavicular adenopathy Wears glasses Wears partial dentures Home Medications albuterol sulfate 90 mcg/actuation aerosol inhaler 2 puff INHALATION Q4H PRN 10/24/17 [History Last Taken Unknown] cod liver oil 1 cap PO QDAY 10/24/17 [History Last Taken Unknown] multivitamin 1 tab PO QDAY 10/24/17 [History Last Taken Unknown] alfuzosin 10 mg PO QHS 08/19/19 [History Last Taken Unknown] lisinopril 10 mg PO DAILY 08/19/19 [History Last Taken 08/24/19 20:00] Allergy/AdvReac Type Severity Reaction Status Date / Time Penicillins AdvReac Other-nervo Verified 02/02/21 14:14 us Family History Brother Heart disease Surgical History History of inguinal hernia repair, bilateral Social History Smoking Status: Never smoker second hand exposure: Yes alcohol intake: never substance use type: does not use ROS ROS ED Constitutional Constitutional ED: Reports fever(s) and other Details: Frequent falls and confusion ENT ENT ED: Denies rhinorrhea Cardiovascular Cardiovascular: Denies chest pain Respiratory/Chest Respiratory/Chest: Reports cough Gastrointestinal Gastrointestinal: Denies abdominal pain, diarrhea, nausea or vomiting Genitourinary Genitourinary ED: Denies dysuria or hematuria Musculoskeletal Musculoskeletal: Denies back pain Integumentary Denies rash Neurologic Neurologic: Denies paresthesias or weakness Psychiatric Psychiatric: Denies depression Endocrine Endocrinology: Denies fatigue Allergic/Immunologic Allergic/Immunologic ED: Denies urticaria EXAM Physical Exam Const Vital Signs: 02/02/21 14:15 02/02/21 15:24 Temperature 99.4 F H Temperature Source Temporal Pulse Rate 88 Respiratory Rate 19 H Respiratory Effort Normal Non-Labored Respiratory Pattern Normal Blood Pressure 120/68 Blood Pressure Mean 85 Pulse Ox 91 Oxygen Delivery Method Room Air Positive well nourished and well developed Constitutional Narrative: Elderly male who is hard of hearing but not acutely distressed General Appearance ED: well developed and NAD HEENT Reports moist mucous membranes Negative for trauma or tenderness Eyes EOMs intact bilaterally Neck no lymphadenopathy, supple and no JVD Chest Wall inspection of chest normal Resp normal respiratory effort Resp Narrative: Rales are noted in the bases bilaterally Cardio regular rate, regular rhythm, no murmurs and peripheral pulses 2+ throughout GI normal to inspection, nondistended, normoactive bowel sounds, non-tender and no masses Palpation: soft Back/Spine normal to inspection Extremity normal to inspection General Extremety ED: Negative for tenderness Neuro oriented x3 and no sensory deficits noted Sensorium / Orientation: alert Motor Exam: strength 5/5 throughout Psych mental status grossly normal Skin no rashes or lesions noted MDM MDM MDM Narrative Medical decision making narrative: Patient presented secondary to complications of coronavirus. Chest x-ray by my personal review demonstrates changes consistent with coronavirus. Patient's laboratory work-up was relatively unremarkable with a CBC and chemistry being basically within normal limits no signs of significant electrolyte derangement. Patient was clinically dry, he was given a liter normal saline. Had a discussion with the patient's daughter who stays with both the patient as well as the patient's who is also here with coronavirus. She specifically has safety concerns about the patient due to the fact that he has fallen twice within the last 2 days and has been having increasing issues with confusion. Due to the fact that the patient is having these encephalopathic issues with his coronavirus a believe the patient at least qualifies for an observation admission. Patient will be discussed with the hospitalist. Lab Data Labs: Laboratory Results - last 24 hr 02/02/21 02/02/21 15:00 15:00 WBC 4.9 RBC 4.87 Hgb 15.4 Hct 45.2 MCV 92.8 MCH 31.6 MCHC 34.1 RDW Std Deviation 48.8 H RDW Coeff of Gilberto 14.5 Plt Count 196 MPV 10.5 Immature Gran % (Auto) 1.000 H Neut % (Auto) 72.4 H Lymph % (Auto) 16.6 L [place] % (Auto) 9.4 Eos % (Auto) 0.4 Baso % (Auto) 0.2 Absolute Neuts (auto) 3.5 Absolute Lymphs (auto) 0.81 L Nucleated RBC % 0 Sodium 131 L Potassium 3.9 Chloride 100 Carbon Dioxide 22.0 Anion Gap 9 BUN 28 H Creatinine 1.22 Estim Creat Clear Calc 42.89 Est GFR (MDRD) Af Amer 73 Est GFR (MDRD) Non-Af 60 BUN/Creatinine Ratio 23.0 H Glucose 130 H Calcium 8.8 Radiography Diagnostic Testing: Radiology Impression Chest X-Ray 02/02/21 15:02 IMPRESSION: Mild interstitial opacities. There is no focal consolidation. at 1525 Reported and signed by: Kannan Lee MD Electronically Signed: Kannan Lee MD at 15:24 EDT Tel , Service support , Discharge Plan Triage Chief Complaint: Fever ED Provider: Liam Strange Dx/Rx/DC Orders Clinical Impression: COVID-19, Delirium, Frequent falls Prescriptions: No Action multivitamin [Multiple Vitamins] tablet 1 tab PO QDAY RF: 0 cod liver oil capsule 1 cap PO QDAY RF: 0 albuterol sulfate [Ventolin HFA] 90 mcg/actuation HFA aerosol inhaler 2 puff INHALATION Q4H PRN (Reason: Wheezing) RF: 0 lisinopril 10 MG tablet 10 mg PO DAILY RF: 0 alfuzosin 10 MG tablet extended release 24 hr 10 mg PO QHS RF: 0 Primary Care Provider: Abimael Lewis Referrals: Abimael Lewis MD [Primary Care Provider] - Disposition Disposition: Acute Care [facility]
[2021-02-02 17:17] VITALS: BP 116/73; PULSE 68; RESP 16; TEMP 36.6; O2SAT 95
[2021-02-02 18:29] VITALS: BMI 26.6
[2021-02-02 18:42] VITALS: BP 117/70; PULSE 68; RESP 20; TEMP 34.6; O2SAT 94
[2021-02-02 19:48] LABS: AST(SGOT) 56 U/L (15-37); Alanine Aminotransfer ALT/SGPT 31 U/L (16-61); Albumin, Serum 3.2 g/dL (3.2-5.0); Alkaline Phosphatase 68 U/L (45-117); Bilirubin, Direct 0.22 mg/dL (0.00-0.30); Globulin 3.9 g/dL (2.2-4.2); Protein, Total 7.1 g/dL (6.4-8.2)
--- NOTE | 2021-02-02 19:59 | PCM.HP.STD ---
HPI - General General Date of Admission: 02/02/21 Date of Service: 02/02/21 Chief Complaint: Confusion, COVID-19 HPI Narrative MATT PERDUE, is a 85 M who presents to the emergency room at [facility] after being brought in by his daughter due to the patient having periods of confusion at home over the last couple of days. Patient was diagnosed with COVID-19 January 24, his also has Covid 19. Patient does not complain of any shortness of breath, daughter is working in a home nursing service and has been checking his pulse ox but it has not gone below 90%. Patient's daughter states that the patient was trying to use a microwave yesterday and he was not able to push the appropriate buttons. Patient has been having episodic diarrhea at home. Evaluation in the emergency room showed the patient's white blood cell count to be normal, chemistry panel was remarkable for sodium of 131, BUN of 28, and a glucose of 130. Chest x-ray shows evidence of faint infiltrates bilaterally. Patient's pulse ox on room air was 94%. Patient was not ambulated. I talked at length with patient's daughter, I feel the patient could undergo treatment with remdesivir and dexamethasone, I believe he may be dehydrated and he will need fluid administration. Patient will be admitted to [facility] status on PCU for COVID-19, encephalopathy secondary to COVID-19, and dehydration. [facility] Medical History Bronchiectasis without acute exacerbation Chronic nonallergic rhinitis Constipation Esophageal reflux History of diverticulitis History of kidney stones HTN (hypertension) Non-smoker Prostate disease RML pneumonia Supraclavicular adenopathy Wears glasses Wears partial dentures Home Medications lisinopril 10 mg PO DAILY 08/19/19 [History Last Taken 02/02/21] Allergy/AdvReac Type Severity Reaction Status Date / Time Penicillins AdvReac Other-nervo Verified 02/02/21 14:14 us Family History Brother Heart disease Surgical History History of inguinal hernia repair, bilateral Social History Smoking Status: Never smoker second hand exposure: Yes alcohol intake: never substance use type: does not use ROS ROS Narrative Review of system was difficult to obtain from the patient due to severe hearing loss, information was obtained from the patient's daughter who is in the room at the time of my examination. Patient was able to correctly tell me where he was, what day of the week it was and what year it was. Patient was oriented to self also. Vital Signs Vital Signs Vital Signs: 02/02/21 14:15 02/02/21 15:24 02/02/21 17:17 Temperature 99.4 F H 97.8 F Temperature Source Temporal Temporal Pulse Rate 88 68 Respiratory Rate 19 H 16 Respiratory Effort Normal Non-Labored Respiratory Pattern Normal Blood Pressure 120/68 116/73 Blood Pressure Mean 85 87 Blood Pressure Source Blood Pressure Position Blood Pressure Location Pulse Ox 91 95 Oxygen Delivery Method Room Air Room Air 02/02/21 18:42 Temperature 94.3 F L Temperature Source Oral Pulse Rate 68 Respiratory Rate 20 H Respiratory Effort Respiratory Pattern Blood Pressure 117/70 Blood Pressure Mean 85 Blood Pressure Source Monitor Blood Pressure Position Semi-Fowlers Blood Pressure Location Left Arm Pulse Ox 94 Oxygen Delivery Method Room Air Weight Weight: 77.156 kg Body Mass Index (BMI) 26.6 Physical Exam Const alert, oriented x3, no apparent distress and average body habitus Constitutional Narrative: Patient appeared his stated age General Appearance: cooperative, well kempt and well developed Orientation / Consciousness: awake, oriented to person, oriented to place and oriented to time HEENT normocephalic and head/scalp atraumatic HEENT Narrative: Patient was severely hard of hearing Eyes PERRL, EOMs intact bilaterally and conjunctivae normal Neck nuchal rigidity, supple, no JVD, thyroid normal and no carotid bruits General: trachea midline Resp normal respiratory effort, no retractions, no use of accessory muscles and clear to auscultation bilaterally Auscultation: Negative for rales, rhonchi or wheezes Cardio regular rate, regular rhythm, S1 normal heart sound, S2 normal heart sound, no murmurs, no rub and no gallops GI normal to inspection, nondistended, normoactive bowel sounds, soft to palpation, non-tender and non-distended Extremity normal to inspection and no clubbing, cyanosis or edema Skin no rashes or lesions noted, no wounds and no jaundice General Skin Exam: no breakdown Neuro oriented x3, CN's II-XII intact bilaterally, no focal motor deficits and no sensory deficits noted Sensorium / Orientation: awake and alert Speech: speech normal Psych thought process normal and affect normal Results Lab / Micro Data Result Diagrams: 02/02/21 15:00 02/02/21 15:00 Labs: Laboratory Results - last 24 hr 02/02/21 15:00: WBC 4.9, RBC 4.87, Hgb 15.4, Hct 45.2, MCV 92.8, MCH 31.6, MCHC 34.1, RDW Std Deviation 48.8 H, RDW Coeff of Gilberto 14.5, Plt Count 196, MPV 10.5, Immature Gran % (Auto) 1.000 H, Neut % (Auto) 72.4 H, Lymph % (Auto) 16.6 L, [place] % (Auto) 9.4, Eos % (Auto) 0.4, Baso % (Auto) 0.2, Absolute Neuts (auto) 3.5, Absolute Lymphs (auto) 0.81 L, Nucleated RBC % 0 02/02/21 15:00: Sodium 131 L, Potassium 3.9, Chloride 100, Carbon Dioxide 22.0, Anion Gap 9, BUN 28 H, Creatinine 1.22, Estim Creat Clear Calc 42.89, Est GFR (MDRD) Af Amer 73, Est GFR (MDRD) Non-Af 60, BUN/Creatinine Ratio 23.0 H, Glucose 130 H, Calcium 8.8 02/02/21 15:00: Alkaline Phosphatase 68 02/02/21 15:00: Total Bilirubin 0.70, Direct Bilirubin 0.22, AST 56 H, ALT 31, Alkaline Phosphatase 68, Total Protein 7.1, Albumin 3.2, Globulin 3.9 Radiology Impression Chest X-Ray 02/02/21 15:02 IMPRESSION: Mild interstitial opacities. There is no focal consolidation. at 1525 Reported and signed by: Kannan Lee MD Electronically Signed: Kannan Lee MD at 15:24 EDT Tel , Service support , Assessment & Plan Assessment/Plan (1) COVID-19: PLAN: 1. Mild encephalopathy secondary to COVID-19 infection and dehydration-patient will be admitted to [facility] on PCU, he will be given IV fluids and started on remdesivir and dexamethasone. Patient will be seen by PT and OT #2 COVID-19 pneumonia-mild, patient is not hypoxic at rest, he may need to be ambulated to assess for the need for supplemental oxygen on ambulation before discharge home. #3 hypertension-patient is on lisinopril #4 acute generalized debility secondary to COVID-19 pneumonia-patient will be seen by PT and OT, it is assumed that the patient will be able to return home after hospitalization. Charges/Coding Visit Charges Inpatient E&M: 69051 Init Hosp L3
[2021-02-02 20:00] VITALS: BP 122/70; PULSE 68; RESP 18; TEMP 36.7; O2SAT 95
[2021-02-02 20:01] VITALS: PULSE 73
[2021-02-02] MEDS: 0.9% NaCl Peripheral Flush Adult/Peds IV (20:16)
[2021-02-02] MEDS: 0.9% Normal Saline 1,000 ML 100 ML IV (20:16)
[2021-02-02] MEDS: Enoxaparin 40 MG/0.4 ML Syringe SC (21:47)
[2021-02-02] MEDS: dexAMETHasone 4 MG Tablet 6 MG PO (21:47)
[2021-02-02 21:50] VITALS: BP 137/74; PULSE 73; RESP 22; TEMP 36.6; O2SAT 97
[2021-02-03] VITALS (10 sets, daily range): BP systolic 109–133; BP diastolic 66–91; PULSE 70–86; RESP 18–20; TEMP 36.3–36.6; O2SAT 93–95
[2021-02-03] MEDS: 0.9% Normal Saline 1,000 ML 100 ML IV ×2 (05:41→14:55)
[2021-02-03 07:29] LABS: Hematocrit 45.6 % (40-54); Hemoglobin 15.5 g/dL (13.0-16.5); Mean Corpuscular Hgb 31.6 pg (27.0-32.0); Mean Corpuscular Volume 93.1 fL (80-94); Mean Platelet Vol. 10.4 fl (6.2-12.0); Platelet Count 197 K/mm3 (150-450); RBC Distribution Width CV 14.6 % (11.6-14.6); RBC Distribution Width SD 50.1 fl (35.1-43.9); White Blood Count 2.7 K/mm3 (4.4-11.0)
[2021-02-03 08:01] LABS: ALB/GLOB Ratio 0.7 RATIO (0.9-2.4); AST(SGOT) 50 U/L (15-37); Alanine Aminotransfer ALT/SGPT 29 U/L (16-61); Albumin, Serum 2.6 g/dL (3.2-5.0); Alkaline Phosphatase 64 U/L (45-117); Anion Gap 10 (5-15); BUN 21 mg/dL (7-18); BUN/Creat Ratio 22.9 RATIO (10-20); Chloride 104 mmol/L (98-107); Creatinine, Serum 0.92 mg/dL (0.70-1.30); EST Glomerular Filtration Rate 84 mL/min (>60); Est Glom Filt Rate - Afr Amer 101 mL/min (>60); Globulin 3.6 g/dL (2.2-4.2); Glucose 132 mg/dL (74-106); Potassium 4.2 mmol/L (3.5-5.1); Protein, Total 6.2 g/dL (6.4-8.2); Sodium Level 135 mmol/L (136-145)
[2021-02-03] MEDS: Enoxaparin 40 MG/0.4 ML Syringe SC (09:16)
[2021-02-03] MEDS: dexAMETHasone 4 MG Tablet 6 MG PO (09:17)
[2021-02-03] MEDS: Lisinopril 10 MG Tablet PO (09:17)
[2021-02-03 10:30] LABS: Bacteria 0 SEEN /hpf (None Seen); Mucous, Urine 0 SEEN /hpf (<or=2+); Squamous Epithelial Cells - UA 0 SEEN /hpf (0-5); White Blood Cells 0 SEEN /hpf (0-5)
[2021-02-03 10:37] LABS: Color, Urine Yellow (Yellow); Glucose, Dipstick 50 mg/dl (Normal); Ketone-Dipstick Negative (Negative); Leukocyte Esterase-Dipstick Negative /ul (Negative); Nitrite-Dipstick Negative (Negative); Occult Blood-Urine 250 /ul (Negative); Protein-Dipstick 30 mg/dl (Negative); Urine Bilirubin Dipstick Negative (Negative); Urine Clarity Clear (Clear); Urine Urobilinogen 1 mg/dl (Normal)
[2021-02-03 10:46] LABS: Red Blood Cells-Urine 25-50 SEEN /hpf (0-5)
--- NOTE | 2021-02-03 14:50 | CASEMGMT ---
SOCIAL WORK Referral Source: Lizabeth CHANDLER Reason for Consult: Discharge planning Unable to complete assessment with patient at this time due to confusion. Call to patient's son, Anjum to discuss discharge planning. No answer, left message with this worker's contact information. Plan: JESSIKA Lockett, RIBBON LAP MACHINE TENDER, LINER REROLL TENDER
--- NOTE | 2021-02-03 15:54 | CASEMGMT ---
SOCIAL WORK Received call back from patient's son, Anjum. Per Anjum, wishes for patient to return home upon discharge. Anjum states patient's daughter and are living with patient and . Anjum states will call sister and confirm plan and call this worker back. June Lockett, STREET CONTRACTOR, DATA COMMUNICATIONS TECHNICIAN
--- NOTE | 2021-02-03 16:36 | PN.HOSP_ITS ---
Subjective Subjective Patient seen and examined. He was lying comfortably in bed and had no active complaints. Review of systems otherwise negative. He is on room air. He has remained hemodynamically stable. Objective Data Objective Data Vital Signs: Vital Signs Temp Pulse Resp BP Pulse Ox 97.5 F L 86 18 122/91 H 93 02/03/21 14:54 02/03/21 14:54 02/03/21 14:54 02/03/21 14:54 02/03/21 14:54 Oxygen Delivery Method Room Air Weight: 170 lb 1.6 oz Body Mass Index (BMI) 26.6 Intake & Output: Intake and Output for Last 24 Hours 02/01/21 02/02/21 02/03/21 23:59 23:59 23:59 Intake Total 1252.92 / 1252.92 2391.66 / 2391.66 Output Total 700 / 700 Balance 1252.92 / 1052.92 1691.66 / 1691.66 Lab / Micro Data Result Diagrams: 02/03/21 07:02 02/03/21 07:02 Labs: Laboratory Results - last 24 hr 02/02/21 15:00: Alkaline Phosphatase 68 02/02/21 15:00: Total Bilirubin 0.70, Direct Bilirubin 0.22, AST 56 H, ALT 31, Alkaline Phosphatase 68, Total Protein 7.1, Albumin 3.2, Globulin 3.9 02/03/21 07:02: WBC 2.7 L, RBC 4.90, Hgb 15.5, Hct 45.6, MCV 93.1, MCH 31.6, MCHC 34.0, RDW Std Deviation 50.1 H, RDW Coeff of Gilberto 14.6, Plt Count 197, MPV 10.4 02/03/21 07:02: Sodium 135 L, Potassium 4.2, Chloride 104, Carbon Dioxide 21.0, Anion Gap 10, BUN 21 H, Creatinine 0.92, Estim Creat Clear Calc 54.90, Est GFR (MDRD) Af Amer 101, Est GFR (MDRD) Non-Af 84, BUN/Creatinine Ratio 22.9 H, Glucose 132 H, Calcium 8.0 L, Total Bilirubin 0.60, AST 50 H, ALT 29, Alkaline Phosphatase 64, Total Protein 6.2 L, Albumin 2.6 L, Globulin 3.6, Albumin/Globulin Ratio 0.7 L 02/03/21 10:10: Urine Color Yellow, Urine Clarity Clear, Urine pH 6.0, Ur Specific [place] 1.010, Urine Protein 30 H, Urine Glucose (UA) 50 H, Urine Ketones Negative, Urine Occult Blood 250 H, Urine Nitrite Negative, Urine Bilirubin Negative, Urine Urobilinogen 1 H, Ur Leukocyte Esterase Negative, Urine RBC 25-50 SEEN, Urine WBC 0 SEEN, Ur Squamous Epith Cells 0 SEEN, Urine Bacteria 0 SEEN, Urine Mucus 0 SEEN Physical Exam Const alert, oriented x3 and no apparent distress Exam Limitations: no limitations HEENT head/scalp atraumatic and moist oral mucous membranes Head and Scalp: normocephalic Eyes PERRL, EOMs intact bilaterally and conjunctivae normal Neck no lymphadenopathy, supple and no JVD Resp normal respiratory effort, no retractions, no use of accessory muscles and clear to auscultation bilaterally Cardio regular rate, regular rhythm, S1 normal heart sound, S2 normal heart sound and no murmurs GI normal to inspection, nondistended, normoactive bowel sounds, soft to palpation, non-tender and non-distended Extremity normal to inspection, full ROM and no clubbing, cyanosis or edema Peripheral Pulses: Yes pulses 2+ throughout Skin no rashes or lesions noted Neuro oriented x3, CN's II-XII intact bilaterally and moves all extremities Sensorium / Orientation: awake and alert Psych affect normal Assessment & Plan Assessment/Plan (1) COVID-19: (2) Frequent falls: (3) Delirium: PLAN: #Acute metabolic encephalopathy * Failure resolved. Patient is alert and oriented and able to current conversati on. * PT OT on board. Fall precautions. * #COVID-19 infection * Patient is likely symptomatic in this not hypoxic. * Currently on Decadron will start on remdesivir treatment. * Breathing treatments of bronchodilators as needed. * #Hypertension: On lisinopril #DVT prophylaxis: Lovenox Charges/Coding Visit Charges Inpatient E&M: 37032 Subs Hosp L2
--- NOTE | 2021-02-03 16:45 | CASEMGMT ---
SOCIAL WORK Received call from patient's son, Anjum. Per Anjum, spoke with sister and plan for discharge is home as before. Anjum states sister was concerned with patient's confusion as prior to COVID-19, patient was healthy and active and confusion is not normal for patient. Nurse, Dudley updated on plan for home at discharge. Plan: Home with family once medically stable June Lockett, TOLL OPERATOR, STENO POOL SUPERVISOR
--- NOTE | 2021-02-03 20:36 | PCS.PANDOC ---
PANDEMIC DOCUMENTATION INITIATED: Date: 01/22/2021 Time: 190
[2021-02-04] MEDS: 0.9% Normal Saline 1,000 ML 100 ML IV (02:10)
[2021-02-04 02:59] VITALS: PULSE 70
[2021-02-04 03:15] VITALS: BP 127/77; PULSE 69; RESP 18; TEMP 36.6; O2SAT 94
[2021-02-04 07:00] VITALS: PULSE 64
[2021-02-04 07:24] VITALS: O2SAT 94
[2021-02-04 08:54] LABS: Absolute Lymphocyte Count 0.82 X10^3/uL (0.83-4.51); Absolute Neutrophil Count 8.5 X10^3/uL (2.0-7.7); Basophil# 0.02 X10^3/uL; Basophil% 0.2 % (0-1); Hematocrit 46.5 % (40-54); Lymphocyte # 0.82 X10^3/ul (0.83-4.51); Lymphocyte % 8.1 % (19-41); Mean Corp Hgb Conc 34.4 g/dL (32-36); Mean Corpuscular Hgb 31.4 pg (27.0-32.0); Mean Corpuscular Volume 91.2 fL (80-94); Mean Platelet Vol. 10.2 fl (6.2-12.0); Monocyte# 0.68 X10^3/uL; Monocyte% 6.8 % (0-10); NRBC Flagged by Analyzer 0 % (0-5); Neutrophil # 8.45 X10^3/uL (2.7-7.7); Neutrophil % 83.9 % (47-70); Platelet Count 266 K/mm3 (150-450); RBC Distribution Width CV 14.2 % (11.6-14.6); RBC Distribution Width SD 47.4 fl (35.1-43.9); White Blood Count 10.1 K/mm3 (4.4-11.0)
[2021-02-04 09:03] VITALS: BP 140/71; PULSE 84; RESP 18; TEMP 36.7; O2SAT 94
[2021-02-04] MEDS: Enoxaparin 40 MG/0.4 ML Syringe SC (09:04)
[2021-02-04] MEDS: Lisinopril 10 MG Tablet PO (09:04)
[2021-02-04] MEDS: dexAMETHasone 4 MG Tablet 6 MG PO (09:04)
[2021-02-04 09:16] LABS: Anion Gap 9 (5-15); BUN 23 mg/dL (7-18); BUN/Creat Ratio 30.7 RATIO (10-20); Calcium,Total 8.1 mg/dL (8.5-10.1); Chloride 109 mmol/L (98-107); Creatinine, Serum 0.75 mg/dL (0.70-1.30); EST Glomerular Filtration Rate 106 mL/min (>60); Est Glom Filt Rate - Afr Amer 128 mL/min (>60); Estimated Creatinine Clearance 52.33 ml/min; Glucose 131 mg/dL (74-106); Potassium 3.9 mmol/L (3.5-5.1); Sodium Level 136 mmol/L (136-145)
--- NOTE | 2021-02-04 12:36 | DS.PCM_ITS ---
Providers Date of Admission: 02/02/21 Primary Care Physician: Dr. Abimael Lewis MD Reason For Visit: COVID19, ENCEPHALOPATHY SECONDARY TO COVID19 Diagnosis Discharge Diagnosis (1) COVID-19: Status: Acute Code(s): U07.1 - COVID-19 (2) Frequent falls: Status: Acute Code(s): R29.6 - Repeated falls (3) Delirium: Status: Acute Code(s): R41.0 - Disorientation, unspecified Medications at Discharge Home Medications lisinopril 10 mg PO DAILY 08/19/19 dexamethasone [Decadron] 6 mg PO DAILY #9 tab 02/04/21 Hospital Course Operations None Procedures None Summary of Care Provided Minutes Spent on Discharge: 45 Hospital Course: Patient is an 85 y/o M with a PMH asoutlined who was admitted via the ED on 02/02/2021 with a complaint of altered mental status. He had been having some episodic periods of confusion at home over the past couple of days, but denied any shortness of breath or any other symptoms. Patient was diagnosed with covid 19 on January 24, 2021, but has been stable since then. His daughter who worked in a home nursing service had been checking his pulse ox at home but said it had not gone below 90%. Review of systems was otherwise negative. CXR showed evidence of faint infiltrates bilaterally. He was admitted to be managed for acute metabolic encephalopathy and COVID 19 infection. Patient remained stable during admission and was put on dexamethasone and remdesivir. He was hydrated with IVF. PT/OT was consulted. He remained stable and remained on room air. His symptoms remained stable, and was discharged home on 02/04/2021. His covid precautions was discontinued as he had been asymptomatic since his diagnosis on 01/24/2021. He was discharged home on PO decadron 10mg daily, to complete a 10 day course. He is to follow up with his PCP in 1-2 weeks. He was c ounseled to also strongly consider getting the covid vaccine after follow up with his PCP. Patient seen and examined prior to discharge. He has no complaints and wanted to be discharged. Review of systems is otherwise negative. Labs and vitals reviewed. Home meds reviewed and reconciled. Physical Exam Const alert, oriented x3, no apparent distress and average body habitus Constitutional Narrative: Patient appeared his stated age General Appearance: cooperative, comfortable, well kempt and well developed Orientation / Consciousness: awake, oriented to person, oriented to place and oriented to time Exam Limitations: no limitations HEENT normocephalic, head/scalp atraumatic and moist oral mucous membranes Eyes PERRL, EOMs intact bilaterally and conjunctivae normal Neck nuchal rigidity, no lymphadenopathy, supple, no JVD, thyroid normal and no carotid bruits General: trachea midline Resp normal respiratory effort, no retractions, no use of accessory muscles and clear to auscultation bilaterally Auscultation: Negative for rales, rhonchi or wheezes Cardio regular rate, regular rhythm, S1 normal heart sound, S2 normal heart sound, no murmurs and no rub GI normal to inspection, nondistended, normoactive bowel sounds, soft to palpation, non-tender and non-distended Extremity normal to inspection, full ROM and no clubbing, cyanosis or edema Skin no rashes or lesions noted, no wounds and no jaundice General Skin Exam: no breakdown Neuro oriented x3, CN's II-XII intact bilaterally, moves all extremities, no focal motor deficits and no sensory deficits noted Sensorium / Orientation: awake and alert Speech: speech normal Psych thought process normal and affect normal Weight / BMI Weight Weight: 170 lb 3.15 oz Body Mass Index (BMI) 26.6 ABG / Lab / Microbiology Data Result Diagrams: 02/04/21 08:25 02/04/21 08:25 Laboratory: Laboratory Results - last 24 hr 02/04/21 08:25: WBC 10.1, RBC 5.10, Hgb 16.0, Hct 46.5, MCV 91.2, MCH 31.4, MCHC 34.4, RDW Std Deviation 47.4 H, RDW Coeff of Gilberto 14.2, Plt Count 266, MPV 10.2, Immature Gran % (Auto) 1.000 H, Neut % (Auto) 83.9 H, Lymph % (Auto) 8.1 L, [place] % (Auto) 6.8, Eos % (Auto) 0.0, Baso % (Auto) 0.2, Absolute Neuts (auto) 8.5 H, Absolute Lymphs (auto) 0.82 L, Nucleated RBC % 0 02/04/21 08:25: Sodium 136, Potassium 3.9, Chloride 109 H, Carbon Dioxide 18.0 L , Anion Gap 9, BUN 23 H, Creatinine 0.75, Estim Creat Clear Calc 52.33, Est GFR (MDRD) Af Amer 128, Est GFR (MDRD) Non-Af 106, BUN/Creatinine Ratio 30.7 H, Glucose 131 H, Calcium 8.1 L Microbiology: Microbiology 02/03/21 10:10 Urine, Clean Catch Urine Culture - Preliminary Mixed Gram Positive Organisms D/C Instructions Discharge Diet: Low fat / Low cholesterol Discharge Activity: Return to Normal Activity Weight Bearing Status: Weight bearing as tolerated Call your doctor if you observe: Fever of 101 or Higher, Shortness of breath, Swelling in the ankles and Increased palpitations (irregular heartbeat) Meaningful Use Info Meaningful Use Diagnoses (Choose all that apply): None applicable Discharge Plan Admission Admit Date/Time: 02/02/21 17:41 Primary Reason for Your Visit: covid 19 infection; acute metabolic encephalopathy Attending Provider: Rubina Potts Primary Care Provider: Abimael Lewis Instructions Patient Instructions: Coronavirus Disease 2019 (COVID-19): Overview, Coronavirus Disease 2019 (COVID-19): Caring for Yourself or Others, ED Confusion Discharge Orders/Prescriptions Prescriptions: New dexamethasone [Decadron] 6 mg tablet 6 mg PO DAILY Qty: 9 RF: 0 Continued lisinopril 10 MG tablet 10 mg PO DAILY RF: 0 Referrals / Follow Up: Abimael Lewis MD [Primary Care Provider] - Within 2 Weeks Disposition Disposition (needs filled in before D/C Order can be placed): Home, Self Care Charges/Coding Visit Charges Inpatient E&M: 97671 Disch Hosp
--- NOTE | 2021-02-05 14:30 | CASEMGMT ---
RN CM Discharge Follow-Up Phone Call. Lace: 10 Strata: 3 Discharge Date: 02/04/21 Adm Dx: COVID, encephalopathy Attempted discharge f/u phone call. No answer. Recording w/pt's name identified came on. VM left for return call to RN RAMESH if there are any questions or concerns. Phone number provided. Karime RENTERIA RN CM
== END 2021-02-04 13:55 | disposition home or self-care (01) | DRG 177 ==
LOC: ED 16:35 → PCU 18:15
PROVIDERS: Admitting Provider Internal Medicine; Emergency Provider Emergency Medicine; PCP Family Medicine; Visit Provider Student in an Organized Health Care Education/Training Program
DX: U07.1 COVID-19 (principal); G93.41 Metabolic encephalopathy; R53.81 Other malaise; E86.0 Dehydration; R29.6 Repeated falls; I10 Essential (primary) hypertension; K21.9 Gastro-esophageal reflux disease without esophagitis; H91.90 Unspecified hearing loss, unspecified ear; Z87.01 Personal history of pneumonia (recurrent); Z87.442 Personal history of urinary calculi; Z87.19 Personal history of other diseases of the digestive system; Z79.899 Other long term (current) drug therapy
CPT/HCPCS: 36415; 71045; 80048; 80053; 80076; 81001; 84075; 85025; 85027; 87086; 87088; 97162; 97165; 99285; J7030; J7050; A4216

== ENCOUNTER 2021-02-06 17:35 | Observation (INO) | payer MEDICARE, OTHER, SELFPAY ==
[2021-02-06] VITALS (11 sets, daily range): BP systolic 113–150; BP diastolic 62–82; PULSE 74–83; RESP 16–21; TEMP 36.4–37.2; O2SAT 3–98; BMI 25.7; BMI 24.3
--- NOTE | 2021-02-06 18:39 | CT_ITS ---
STUDY: CT BRAIN WITHOUT CONTRAST REASON FOR EXAM: Male, 85 years old. altered mental status RADIATION DOSAGE (If Supplied By Facility): CTDIvol = ( 44.99 ) mGy, DLP = ( 812.98 ) mGycm TECHNIQUE: Transaxial CT imaging of the brain was performed without administration of intravenous contrast material. Individualized dose optimization techniques were used for this CT. COMPARISON: No relevant priors. FINDINGS: Normal soft tissue structures. Normal calvarium. There is mild cerebral atrophy with widening of the extra-axial spaces and ventricular dilatation. There are areas of decreased attenuation within the white matter tracts of the supratentorial brain, consistent with microvascular disease changes. Normal basal ganglia and thalami. Normal brainstem. Normal cerebellum. There is no intracranial hemorrhage. There are no findings of an acute ischemic infarction. Normal visualized paranasal sinuses. CT/Brain/Head without Contrast IMPRESSION: Chronic involutional changes of the brain. No acute hemorrhage Electronically Signed: Memo Nesbitt MD at 20:32 EDT , Service support ,
--- NOTE | 2021-02-06 18:39 | EKG12_ITS ---
Test Reason : DYSRHYTHMIA Blood Pressure : / mmHG Vent. Rate : 078 BPM Atrial Rate : 078 BPM P-R Int : 156 ms QRS Dur : 094 ms QT Int : 406 ms P-R-T Axes : 031 -27 065 degrees QTc Int : 462 ms Normal sinus rhythm Poor R wave progression Confirmed by DONNA VILLAGOMEZ, JEFFY ([id number]), book or script editor TOVA CHANG ([id number]) on 02/08/2021 8:55:41 AM Referred By: SHILPA Confirmed By:JEFFY THOMPSON MD
--- NOTE | 2021-02-06 18:41 | EX.ED.DYSGE1 ---
HPI History of Present Illness Chief Complaint: Shortness of Breath Narrative Narrative: Patient presenting with his daughter for altered mental status and concern that she is unable to care for him at home. Patient recently had COVID-19 and was tested positive on the . He was tested as an outpatient when he was asymptomatic in order to medically clear him what sounds like lithotripsy by Dr. Bull. Apparently the patient had gone home after the diagnosis and subsequently had to be hospitalized over the weekend and was discharged Friday. This was 2 days ago. His daughter states that he is very confused. He walks around talking to himself. She states that he stares at the buttons on the microwave and talks about using Facebook. She states there is a lazy Apoorva on the coffee table which he just spends and talks to. She notes that he has been hypoxic a couple of time into the mid 80s. This is after ambulation. When he is sitting he does not have any hypoxia that she notes. His fevers have resolved. Patient is a poor informant secondary to confusion. PFSH PENDING SALE TO [facility] Medical History Bronchiectasis without acute exacerbation Chronic nonallergic rhinitis Constipation Esophageal reflux History of diverticulitis History of kidney stones HTN (hypertension) Non-smoker Prostate disease RML pneumonia Supraclavicular adenopathy Wears glasses Wears partial dentures Home Medications lisinopril 10 mg PO DAILY 08/19/19 [History Last Taken 02/02/21] dexamethasone [Decadron] 6 mg PO DAILY #9 tab 02/04/21 [Rx Last Taken Unknown] Allergy/AdvReac Type Severity Reaction Status Date / Time Penicillins AdvReac Other-nervo Verified 02/06/21 17:36 us Family History Brother Heart disease Surgical History History of inguinal hernia repair, bilateral Social History Smoking Status: Never smoker second hand exposure: Yes alcohol intake: never substance use type: does not use ROS ROS ED Review of Systems ROS Unobtainable: due to mental condition EXAM Physical Exam Const Vital Signs: 02/06/21 17:36 02/06/21 17:38 02/06/21 17:39 Temperature 97.5 F L 97.5 F L Temperature Source Oral Oral Pulse Rate 83 83 Respiratory Rate 17 17 Respiratory Effort Short of Breath Labored Respiratory Depth Deep Respiratory Pattern Normal Blood Pressure 144/81 H 144/81 H Blood Pressure Mean 102 102 Pulse Ox 91 96 96 Oxygen Delivery Method Room Air Nasal Cannula Nasal Cannula Oxygen Flow Rate (L/min) 2 2 02/06/21 18:15 02/06/21 19:00 02/06/21 20:34 Temperature Temperature Source Pulse Rate 76 79 82 Respiratory Rate 21 H 20 H 20 H Respiratory Effort Respiratory Depth Respiratory Pattern Blood Pressure 113/70 150/82 H 133/76 H Blood Pressure Mean 84 104 95 Pulse Ox 97 3 96 Oxygen Delivery Method Room Air Nasal Cannula Nasal Cannula Oxygen Flow Rate (L/min) 2 02/06/21 20:41 02/06/21 21:17 Temperature 99.0 F 99.0 F Temperature Source Temporal Temporal Pulse Rate 78 74 Respiratory Rate 16 17 Respiratory Effort Respiratory Depth Respiratory Pattern Blood Pressure 133/76 H 137/77 H Blood Pressure Mean 95 97 Pulse Ox 96 98 Oxygen Delivery Method Nasal Cannula Nasal Cannula Oxygen Flow Rate (L/min) 2 2 Positive well nourished General Appearance ED: NAD HEENT Reports moist mucous membranes Negative for trauma Eyes PERRL and EOMs intact bilaterally General Eye ED: Negative for pale conjunctiva or scleral icterus Chest Wall inspection of chest normal Resp normal respiratory effort Resp Narrative: Bibasilar crackles. No wheezing. Cardio regular rate Rhythm: abnormal rhythm GI normal to inspection, nondistended, normoactive bowel sounds Extremity normal to inspection General Extremety ED: Negative for edema or tenderness General Extremity: Negative for edema Neuro CN's II-XII intact bilaterally Neuro Narrative: Confused. Moves all 4 extremities. No focal neurologic deficits or lateralizing signs or symptoms Sensorium / Orientation: alert Skin no rashes or lesions noted and no wounds MDM MDM MDM Narrative Medical decision making narrative: Patient presenting with generalized weakness and more confusion than previously. His daughter states that she is having a lot of difficulty caring for him given his confusion and weakness. Patient's daughter concerned that he is getting worse. She states that he has been hypoxic at home with ambulation and very confused as described previously. This is a second visit to the ED however she believes he is worse. EKG obtained on arrival shows a sinus rhythm at a ventricular rate of 78 bpm without signs of ischemic change or dysrhythmia. Chest x-ray on my interpretation show progression of previous infiltrates and the radiologist does agree. CBC and CMP are fairly normal with exception of a potassium 134, AST 83 ALT 82. CRP is elevated at 34.5 over previous readings. Coagulation studies are normal. Urinalysis is negative. Patient was pancultured. I did check a D-dimer and this is elevated. I obtained a CT of the chest which shows no dissection or pulmonary emboli however it does show findings consistent with COVID-19. I did obtain a CT of the brain which is negative for acute findings. Patient too weak to go home. He is having hypoxic events at home. He is also very confused. Daughter wishes him to come in for placement. Impression: 1. COVID-19 pneumonitis 2. Failure to thrive 3. Confusion Lab Data Attestation: I reviewed the patient's lab results. Labs: Laboratory Results - last 24 hr 02/06/21 02/06/21 02/06/21 18:50 18:50 19:14 WBC 8.5 RBC 5.13 Hgb 16.0 Hct 46.9 MCV 91.4 MCH 31.2 MCHC 34.1 RDW Std Deviation 48.3 H RDW Coeff of Gilberto 14.4 Plt Count 330 MPV 10.5 Immature Gran % (Auto) 1.100 H Neut % (Auto) 85.1 H Lymph % (Auto) 7.5 L [place] % (Auto) 5.7 Eos % (Auto) 0.0 Baso % (Auto) 0.6 Absolute Neuts (auto) 7.2 Absolute Lymphs (auto) 0.64 L Nucleated RBC % 0 Differential Comment SCANNED PT INR APTT D-Dimer Quant (PE/DVT) 1.30 H* Sodium 134 L Potassium 4.2 Chloride 104 Carbon Dioxide 24.0 Anion Gap 6 BUN 31 H Creatinine 1.05 Estim Creat Clear Calc 53.31 Est GFR (MDRD) Af Amer 87 Est GFR (MDRD) Non-Af 72 BUN/Creatinine Ratio 29.5 H Glucose 167 H Calcium 9.2 Total Bilirubin 0.80 AST 83 H ALT 82 H Alkaline Phosphatase 80 Troponin I High Sens 26 C-React Prot Ext Range 34.50 H Total Protein 7.5 Albumin 3.2 Globulin 4.3 H Albumin/Globulin Ratio 0.7 L Urine Color Urine Clarity Urine pH Ur Specific [place] Urine Protein Urine Glucose (UA) Urine Ketones Urine Occult Blood Urine Nitrite Urine Bilirubin Urine Urobilinogen Ur Leukocyte Esterase Urine RBC Urine WBC Ur Squamous Epith Cells Urine Bacteria Urine Mucus 02/06/21 02/06/21 19:14 19:21 WBC RBC Hgb Hct MCV MCH MCHC RDW Std Deviation RDW Coeff of Gilberto Plt Count MPV Immature Gran % (Auto) Neut % (Auto) Lymph % (Auto) [place] % (Auto) Eos % (Auto) Baso % (Auto) Absolute Neuts (auto) Absolute Lymphs (auto) Nucleated RBC % Differential Comment PT 14.6 INR 1.2 APTT 29.1 D-Dimer Quant (PE/DVT) Sodium Potassium Chloride Carbon Dioxide Anion Gap BUN Creatinine Estim Creat Clear Calc Est GFR (MDRD) Af Amer Est GFR (MDRD) Non-Af BUN/Creatinine Ratio Glucose Calcium Total Bilirubin AST ALT Alkaline Phosphatase Troponin I High Sens C-React Prot Ext Range Total Protein Albumin Globulin Albumin/Globulin Ratio Urine Color Yellow Urine Clarity Clear Urine pH 6.0 Ur Specific [place] 1.015 Urine Protein 30 H Urine Glucose (UA) 50 H Urine Ketones Negative Urine Occult Blood 10 H Urine Nitrite Negative Urine Bilirubin Negative Urine Urobilinogen 1 H Ur Leukocyte Esterase Negative Urine RBC 0-5 SEEN Urine WBC 0 SEEN Ur Squamous Epith Cells 0 SEEN Urine Bacteria 0 SEEN Urine Mucus 0 SEEN Radiography Diagnostic Testing: Radiology Impression Brain CT 02/06/21 18:39 IMPRESSION: Chronic involutional changes of the brain. No acute hemorrhage Electronically Signed: Memo Nesbitt MD at 20:32 EDT , Service support , Chest CTA 02/06/21 19:52 IMPRESSION: No demonstrated PE, or thoracic aortic aneurysm or dissection Underlying emphysema with chronic interstitial changes and superimposed airspace and interstitial opacifications in the periphery of both lung gonzalez. This pattern of opacification is most suggestive of Covid pneumonia. Calcified coronary vessels Degenerative bony changes Electronically Signed: Memo Nesbitt MD at 20:48 EDT , Service support , Chest X-Ray 02/06/21 20:05 IMPRESSION: Progression of diffuse interstitial and airspace opacification since the previous study. Follow-up recommended to assure resolution Electronically Signed: Memo Nesbitt MD at 20:45 EDT , Service support , Discharge Plan Triage Chief Complaint: Shortness of Breath ED Provider: Alex Ashley Dx/Rx/DC Orders Primary Care Provider: Abimael Lewis
[2021-02-06 18:58] LABS: Absolute Lymphocyte Count 0.64 X10^3/uL (0.83-4.51); Absolute Neutrophil Count 7.2 X10^3/uL (2.0-7.7); Basophil# 0.05 X10^3/uL; Basophil% 0.6 % (0-1); Hematocrit 46.9 % (40-54); Lymphocyte # 0.64 X10^3/ul (0.83-4.51); Lymphocyte % 7.5 % (19-41); Mean Corp Hgb Conc 34.1 g/dL (32-36); Mean Corpuscular Hgb 31.2 pg (27.0-32.0); Mean Corpuscular Volume 91.4 fL (80-94); Mean Platelet Vol. 10.5 fl (6.2-12.0); Monocyte# 0.48 X10^3/uL; Monocyte% 5.7 % (0-10); NRBC Flagged by Analyzer 0 % (0-5); Neutrophil # 7.23 X10^3/uL (2.7-7.7); Neutrophil % 85.1 % (47-70); POSITIVE MORPHOLOGY YES; Platelet Count 330 K/mm3 (150-450); RBC Distribution Width CV 14.4 % (11.6-14.6); RBC Distribution Width SD 48.3 fl (35.1-43.9); Red Blood Count 5.13 M/mm3 (4.6-6.2); White Blood Count 8.5 K/mm3 (4.4-11.0)
[2021-02-06 19:00] LABS: Differential Indicated SCAN CRITERIA MET
[2021-02-06 19:20] LABS: ALB/GLOB Ratio 0.7 RATIO (0.9-2.4); AST(SGOT) 83 U/L (15-37); Alanine Aminotransfer ALT/SGPT 82 U/L (16-61); Albumin, Serum 3.2 g/dL (3.2-5.0); Alkaline Phosphatase 80 U/L (45-117); Anion Gap 6 (5-15); BUN 31 mg/dL (7-18); BUN/Creat Ratio 29.5 RATIO (10-20); Calcium,Total 9.2 mg/dL (8.5-10.1); Chloride 104 mmol/L (98-107); Creatinine, Serum 1.05 mg/dL (0.70-1.30); EST Glomerular Filtration Rate 72 mL/min (>60); Est Glom Filt Rate - Afr Amer 87 mL/min (>60); Estimated Creatinine Clearance 53.31 ml/min; Globulin 4.3 g/dL (2.2-4.2); Glucose 167 mg/dL (74-106); Potassium 4.2 mmol/L (3.5-5.1); Protein, Total 7.5 g/dL (6.4-8.2); Sodium Level 134 mmol/L (136-145); Troponin-I HS 26 pg/mL (3.0-78.0)
[2021-02-06 19:26] LABS: Bacteria 0 SEEN /hpf (None Seen); Mucous, Urine 0 SEEN /hpf (<or=2+); Squamous Epithelial Cells - UA 0 SEEN /hpf (0-5); White Blood Cells 0 SEEN /hpf (0-5)
[2021-02-06 19:27] LABS: Color, Urine Yellow (Yellow); Glucose, Dipstick 50 mg/dl (Normal); Ketone-Dipstick Negative (Negative); Leukocyte Esterase-Dipstick Negative /ul (Negative); Nitrite-Dipstick Negative (Negative); Occult Blood-Urine 10 /ul (Negative); Protein-Dipstick 30 mg/dl (Negative); Specific Gravity, Urine 1.015 (1.002-1.030); Urine Bilirubin Dipstick Negative (Negative); Urine Clarity Clear (Clear); Urine Urobilinogen 1 mg/dl (Normal)
[2021-02-06 19:34] LABS: Red Blood Cells-Urine 0-5 SEEN /hpf (0-5)
[2021-02-06 19:42] LABS: Differential Comment SCANNED
--- NOTE | 2021-02-06 19:52 | CT_ITS ---
STUDY: CTA CHEST REASON FOR EXAM: Male, 85 years old. Worsening shortness of breath RADIATION DOSAGE (If Supplied By Facility): CTDIvol = ( 11.90 ) mGy, DLP = ( 450.17 ) mGycm TECHNIQUE: The examination was performed with the intravenous administration of IV 75mL Isovue-370. Post-processing of the angiographic images was performed, with multiplanar reformation and 3D reconstruction. Individualized dose optimization techniques were used for this CT. COMPARISON: Previous plain films FINDINGS: Normal enhancement of the main pulmonary artery and right and left pulmonary arteries. Normal enhancement of the bilateral peripheral pulmonary arteries. There is no demonstrated pulmonary embolism. Normal thoracic aorta and visualized great vessels. There is no demonstrated aortic dissection. Normal heart and pericardium. There are calcifications of the coronary arteries. Scattered subcentimeter in short axis dimension mediastinal and perihilar lymph nodes. There is peribronchial thickening. The lungs are well expanded. Patchy interstitial and airspace opacifications in both lung gonzalez without effusions. Bronchiectatic changes noted in both lower lobes. Normal chest wall structures. There are degenerative changes of thoracic spine. Normal visualized upper abdomen. CT/CTA Chest W/WO Contrast IMPRESSION: No demonstrated PE, or thoracic aortic aneurysm or dissection Underlying emphysema with chronic interstitial changes and superimposed airspace and interstitial opacifications in the periphery of both lung gonzalez. This pattern of opacification is most suggestive of Covid pneumonia. Calcified coronary vessels Degenerative bony changes Electronically Signed: Memo Nesbitt MD at 20:48 EDT , Service support ,
--- NOTE | 2021-02-06 20:05 | RAD_ITS ---
STUDY: X-RAY CHEST REASON FOR EXAM: Male, 85 years old. Fever and cough TECHNIQUE: Single AP portable view of the chest. COMPARISON: 02/02/2021 FINDINGS: EKG leads overlie the chest Lungs are expanded with progression of interstitial and airspace opacification since the previous study. No demonstrated effusions. Findings most suggestive of Covid pneumonia. Normal size heart. Normal mediastinum and bettye. Normal visualized pulmonary arteries. There is atherosclerotic calcification of the aortic arch with tortuosity. There are diffuse degenerative changes of the visualized thoracic spine. There is degenerative osteoarthritis of the bilateral shoulders. There is no demonstrated abnormality of the visualized soft tissue structures of the upper abdomen. RAD/Chest 1 View (Portable) IMPRESSION: Progression of diffuse interstitial and airspace opacification since the previous study. Follow-up recommended to assure resolution Electronically Signed: Memo Nesbitt MD at 20:45 EDT , Service support ,
[2021-02-06 20:12] LABS: International Normalized Ratio 1.2; Prothrombin Time (Protime)PT. 14.6 SECONDS (11.7-14.9)
[2021-02-06 20:13] LABS: Partial Thromboplast Time 29.1 Seconds (24.1-36.2)
[2021-02-06] MEDS: Heparin Injection (Vial) 5,000 UNIT/ML VIAL 5000 UNIT IV (20:36)
--- NOTE | 2021-02-06 21:16 | NURSING ---
Not able to start heparin on the pump and talked to doctor -- only given bolus 5000
--- NOTE | 2021-02-06 21:27 | PCM.HP.STD ---
HPI - General General Date of Admission: 02/06/21 HPI Narrative MATT PERDUE, is a 85 M with a significant history of who presents with a persistent confusion. Of note patient was admitted on 02/02/2021 and discharged on 02/04/2021 for COVID-19 and encephalopathy secondary to COVID-19. His family report that ever since patient was discharged he has continued to be hypoxic on ambulation. Further he continues to be confused and family think that the unable to take care of him. Family report that with a walker his weakness has improved. Patient also has cough occasionally productive for sputum. His appetite is fair. Patient was was diagnosed with Covid 19 on January 24 at 2020 while undergoing a Covid screen in preparation for possible lithotripsy. He was discharged home on Decadron. Of note patient has also been hospitalized at a hospital with COVID-19. FORMERLY [facility], [facility] Medical History Bronchiectasis without acute exacerbation Chronic nonallergic rhinitis Constipation Esophageal reflux History of diverticulitis History of kidney stones HTN (hypertension) Non-smoker Prostate disease RML pneumonia Supraclavicular adenopathy Wears glasses Wears partial dentures Home Medications lisinopril 10 mg PO DAILY 08/19/19 [History Last Taken 02/02/21] dexamethasone [Decadron] 6 mg PO DAILY #9 tab 02/04/21 [Rx Last Taken Unknown] Allergy/AdvReac Type Severity Reaction Status Date / Time Penicillins AdvReac Other-nervo Verified 02/06/21 17:36 us Family History Brother Heart disease Surgical History History of inguinal hernia repair, bilateral Social History Smoking Status: Never smoker second hand exposure: Yes alcohol intake: never substance use type: does not use ROS ROS Narrative Constitutional: Denies anorexia and change in weight Eyes: Denies blurry vision, change in eye color, change in vision, discharge from eye(s), double vision, erythema, eye pain, loss of vision or other HEENT: Dry mucous membrane. Denies abnormal hearing, dysphagia, ear pain, epistaxis, headache(s), hearing loss, nasal congestion, nasal discharge, post nasal drip, sinus pressure, sore throat or other Cardiovascular: Denies chest pain. Denies orthopnea and paroxysmal nocturnal dyspnea Respiratory/Chest: Reports productive cough. Reports shortness of breath Gastrointestinal: Denies abdominal pain, coffee ground emesis, constipation, diarrhea, dyspepsia, hematemesis, hematochezia, loose stools, melena, nausea, vomiting or other Genitourinary: Denies burning urination, difficulty urinating, dysuria, hematuria, nocturia, urinary frequency, urinary hesitancy, urinary incontinence, urinary urgency or other Musculoskeletal: Denies arthralgias, back pain, joint pain, joint stiffness, joint swelling, myalgias, neck pain or other Neurologic: Reports confusion. Denies abnormal gait, abnormal speech, disequilibrium, dizziness, focal weakness, headache(s), numbness, paresthesias, seizure-like activity, seizures, syncope, tingling, tremor(s) or other Psychiatric: Denies anxiety, depression, homicidal ideation, suicidal ideation or other Endocrinology: Denies change in body appearance, cold intolerance, excessive sweating, heat intolerance, polydipsia, polyuria or other Hematologic/Lymphatic: Denies anemia, easy bleeding, easy bruising, lymphadenopathy or other Integumentary: Denies ulcer on buttocks. Allergic/Immunologic: Denies rhinitis, hives, eczema, asthma or other Vital Signs Vital Signs Vital Signs: 02/06/21 17:36 02/06/21 17:38 02/06/21 17:39 Temperature 97.5 F L 97.5 F L Temperature Source Oral Oral Pulse Rate 83 83 Respiratory Rate 17 17 Respiratory Effort Short of Breath Labored Respiratory Depth Deep Respiratory Pattern Normal Blood Pressure 144/81 H 144/81 H Blood Pressure Mean 102 102 Pulse Ox 91 96 96 Oxygen Delivery Method Room Air Nasal Cannula Nasal Cannula Oxygen Flow Rate (L/min) 2 2 02/06/21 18:15 02/06/21 19:00 02/06/21 20:34 Temperature Temperature Source Pulse Rate 76 79 82 Respiratory Rate 21 H 20 H 20 H Respiratory Effort Respiratory Depth Respiratory Pattern Blood Pressure 113/70 150/82 H 133/76 H Blood Pressure Mean 84 104 95 Pulse Ox 97 3 96 Oxygen Delivery Method Room Air Nasal Cannula Nasal Cannula Oxygen Flow Rate (L/min) 2 02/06/21 20:41 02/06/21 21:17 Temperature 99.0 F 99.0 F Temperature Source Temporal Temporal Pulse Rate 78 74 Respiratory Rate 16 17 Respiratory Effort Respiratory Depth Respiratory Pattern Blood Pressure 133/76 H 137/77 H Blood Pressure Mean 95 97 Pulse Ox 96 98 Oxygen Delivery Method Nasal Cannula Nasal Cannula Oxygen Flow Rate (L/min) 2 2 Weight Weight: 79.016 kg Body Mass Index (BMI) 25.7 Physical Exam Narrative Physical exam: General: Well-nourished, well-developed. Head: Normocephalic, atraumatic, no tenderness Eyes: PERRLA, EOMI ENT, no trauma, moist mucous membranes, no rhinorrhea Neck: Nontender, full range of motion, no spinal tenderness, deformities, step-off CVS: Regular rate and rhythm Respiratory wheezes to auscultation bilaterally, chest wall nontender, no wheezing Abdomen: Soft, nontender, nondistended, normal bowel sounds, no masses : Deferred Back: Nontender, no CVA tenderness, no midline spinal tenderness, deformities, step-offs Extremities: Nontender full range of motion, no trauma Skin: Normal color, no trauma, abrasions Neuro: Alert, confused. Cranial nerves II through XII grossly intact. Psychiatry: Normal mood. Normal affect. Not depressed. Not anxious. Results Lab / Micro Data Result Diagrams: 02/06/21 18:50 02/06/21 18:50 Labs: Laboratory Results - last 24 hr 02/06/21 18:50: WBC 8.5, RBC 5.13, Hgb 16.0, Hct 46.9, MCV 91.4, MCH 31.2, MCHC 34.1, RDW Std Deviation 48.3 H, RDW Coeff of Gilberto 14.4, Plt Count 330, MPV 10.5, Immature Gran % (Auto) 1.100 H, Neut % (Auto) 85.1 H, Lymph % (Auto) 7.5 L, [place] % (Auto) 5.7, Eos % (Auto) 0.0, Baso % (Auto) 0.6, Absolute Neuts (auto) 7.2, Absolute Lymphs (auto) 0.64 L, Nucleated RBC % 0, Differential Comment SCANNED 02/06/21 18:50: Sodium 134 L, Potassium 4.2, Chloride 104, Carbon Dioxide 24.0, Anion Gap 6, BUN 31 H, Creatinine 1.05, Estim Creat Clear Calc 53.31, Est GFR (MDRD) Af Amer 87, Est GFR (MDRD) Non-Af 72, BUN/Creatinine Ratio 29.5 H, Glucose 167 H, Calcium 9.2, Total Bilirubin 0.80, AST 83 H, ALT 82 H, Alkaline Phosphatase 80, Troponin I High Sens 26, C-React Prot Ext Range 34.50 H, Total Protein 7.5, Albumin 3.2, Globulin 4.3 H, Albumin/Globulin Ratio 0.7 L 02/06/21 19:14: D-Dimer Quant (PE/DVT) 1.30 H* 02/06/21 19:14: PT 14.6, INR 1.2, APTT 29.1 02/06/21 19:21: Urine Color Yellow, Urine Clarity Clear, Urine pH 6.0, Ur Specific [place] 1.015, Urine Protein 30 H, Urine Glucose (UA) 50 H, Urine Ketones Negative, Urine Occult Blood 10 H, Urine Nitrite Negative, Urine Bilirubin Negative, Urine Urobilinogen 1 H, Ur Leukocyte Esterase Negative, Urine RBC 0-5 SEEN, Urine WBC 0 SEEN, Ur Squamous Epith Cells 0 SEEN, Urine Bacteria 0 SEEN, Urine Mucus 0 SEEN Micro: Microbiology 02/06/21 19:10 Nasal Secretion SARS-CoV-2 Antigen (Rapid) - Final Radiology Impression Brain CT 02/06/21 18:39 IMPRESSION: Chronic involutional changes of the brain. No acute hemorrhage Electronically Signed: Memo Nesbitt MD at 20:32 EDT , Service support , Chest CTA 02/06/21 19:52 IMPRESSION: No demonstrated PE, or thoracic aortic aneurysm or dissection Underlying emphysema with chronic interstitial changes and superimposed airspace and interstitial opacifications in the periphery of both lung gonzalez. This pattern of opacification is most suggestive of Covid pneumonia. Calcified coronary vessels Degenerative bony changes Electronically Signed: Memo Nesbitt MD at 20:48 EDT , Service support , Chest X-Ray 02/06/21 20:05 IMPRESSION: Progression of diffuse interstitial and airspace opacification since the previous study. Follow-up recommended to assure resolution Electronically Signed: Memo Nesbitt MD at 20:45 EDT , Service support , Assessment & Plan Assessment/Plan (1) Encephalopathy acute: (2) COVID-19: (3) Debility: PLAN: COVID-19/encephalopathy secondary to COVID-19 infection continue Decadron. D-dimer was elevated at 1.30. Patient inadvertently had heparin bolus at the emergency department. Radiologist impression of chest CTA: No demonstrated PE, or thoracic aortic aneurysm or dissection Underlying emphysema with chronic interstitial changes and superimposed airspace and interstitial opacifications in the periphery of both lung gonzalez. This pattern of opacification is most suggestive of Covid pneumonia. Calcified coronary vessels Degenerative bony changes Radiologist impression of chest x-ray: Progression of diffuse interstitial and airspace opacification since the previous study. Follow-up recommended to assure resolution Actual chest x-ray image and previous chest x-ray was independently interpreted. CT was independently interpreted. I agree with the records interpretation. Brain CT did not show any acute pathology. Check vitamin B12 and TSH. Debility PT and OT to work with patient. Case management consult for disposition. Dehydration Review of records showed elevation in BUN. Patient with dry mucous membranes. Gentle IV hydration of normal saline 50 mL/h ordered. Trend BMP. DVT prophylaxis: Subcutaneous Lovenox per Covid protocol Charges/Coding Visit Charges OBSV E&M: 81112 Initial observation care L3
--- NOTE | 2021-02-06 22:47 | ED.RN ---
CALLED [facility] TO SEE IF PT WAS READY FOR FLOOR x2, CHARGE NURSE REPORTS NURSE TAKING PT IS NOT READY YET.
[2021-02-06] MEDS: 0.9% Normal Saline 1,000 ML 50 ML IV (23:55)
[2021-02-06] MEDS: Enoxaparin 30 MG/0.3 ML Syringe SC (23:56)
[2021-02-07] VITALS (8 sets, daily range): BP systolic 134–144; BP diastolic 55–71; PULSE 60–82; RESP 18; TEMP 36.3–36.6; O2SAT 87–95
[2021-02-07 01:17] LABS: Procalcitonin 0.09 ng/mL (0.00-0.09)
[2021-02-07 08:08] LABS: Anion Gap 8 (5-15); BUN 26 mg/dL (7-18); BUN/Creat Ratio 29.6 RATIO (10-20); Calcium,Total 8.8 mg/dL (8.5-10.1); Chloride 104 mmol/L (98-107); Creatinine, Serum 0.88 mg/dL (0.70-1.30); EST Glomerular Filtration Rate 88 mL/min (>60); Est Glom Filt Rate - Afr Amer 107 mL/min (>60); Glucose 93 mg/dL (74-106); Potassium 4.3 mmol/L (3.5-5.1); Sodium Level 135 mmol/L (136-145); Thyroid Stim Hormone (TSH) 1.55 uIU/mL (0.358-3.74)
[2021-02-07 09:17] LABS: Vitamin B12 1501 pg/mL (211-911)
--- NOTE | 2021-02-07 10:01 | CASEMGMT ---
Social Work Note BEVERLEY reviewed chart. Pt with confusion. Pt tested positive for COVID 01/24/2021 and had negative Rapid COVID test completed 02/06/2021. BEVERLEY placed a call to pt's son Jose. Jose states his sister Aliza has been staying with pt and pt's . BEVERLEY spoke with Jose that it appears SNF is the plan. Jose asked about [facility]. BEVERLEY explained that this worker would need to check, TCU has been full lately, plus this worker would need to check with their rules regarding a pt that tested positive. BEVERLEY asked Jose if he had other options in the event TCU cannot accept pt. 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 BEVERLEY informed Jose that pt is currently confused. BEVERLEY explained that some SNF are not allowing visitation right now either. BEVERLEY explained that at this time this worker knows that [facility] and [facility] are not allowing visitors but [facility] and [facility]. Jose states maybe [facility] would be a second choice but would like to check with his sister. BEVERLEY informed pt that this worker will call [facility] as well to check on beds, COVID regulations, etc. Jose states understanding. BEVERLEY placed a call to [facility]. Ena states at this time, no beds on TCU, possible discharge tomorrow. Ena states pt would need two negative COVID tests to admit to TCU. BEVERLEY will await call from pt's son Jose with other choices for SNF. 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
--- NOTE | 2021-02-07 10:23 | NURSING ---
PRIMARY RN NOTIFIED ROOM 202 FOR TRANSFER
[2021-02-07] MEDS: dexAMETHasone 4 MG Tablet 6 MG PO (11:27)
[2021-02-07] MEDS: Enoxaparin 30 MG/0.3 ML Syringe SC (11:28)
[2021-02-07] MEDS: Lisinopril 10 MG Tablet PO (11:28)
--- NOTE | 2021-02-07 11:59 | CASEMGMT ---
Social Work Note BEVERLEY received call from pt's son Jose inquiring about SNF. BEVERLEY informed Jose that at this time, there are no confirmed beds on TCU, cannot wait for a bed to become available. Jose states understanding. Jose states next choice for SNF is [facility]. BEVERLEY placed a call to Emelyn at [facility] and provided referral. BEVERLEY faxed referral. 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
--- NOTE | 2021-02-07 14:18 | TREXTCAR_ITS ---
Diet 02/06/21 23:38 Diet: Regular - General Food consistency:: Regular Liquid Consistency:: Regular/Thin Routine Orders/Code Status Routine Lab Work: CBC and BMP Code Status: Full Code Therapies Physical Therapy: Eval and Treat Occupational Therapy: Eval and Treat Problem/Diagnosis (1) Encephalopathy acute: Status: Acute (2) COVID-19: Status: Acute (3) Debility: Status: Acute Allergies/Procedures Done in Hospital Allergies Penicillins Adverse Reaction (Verified 02/06/21 17:36) Other-nervous NERVOUS Procedures: None Type of Care/Length of Stay Estimated LOS: Convalescent Care Less Than 30 days Type of Care Needed: Skilled Rehab Potential: Good Prognosis: Good Additional Orders/Day of Discharge Day of Discharge: 02/07/21 Discharge Plan Admission Admit Date/Time: 02/06/21 21:27 Attending Provider: Tariq Gong Primary Care Provider: Abimael Lewis Discharge Orders/Prescriptions Prescriptions: Continued lisinopril 10 MG tablet 10 mg PO DAILY RF: 0 dexamethasone [Decadron] 6 mg tablet 6 mg PO DAILY Qty: 9 RF: 0 Referrals / Follow Up: Abimael Lewis MD [Primary Care Provider] - Disposition Disposition (needs filled in before D/C Order can be placed): Senior Living Facility
--- NOTE | 2021-02-07 15:25 | PHA.DC.MR ---
Pharmacy Service has performed discharge medication reconciliation for this patient. The patient's discharge medication list was reviewed for discrepancies and discrepancies were resolved. Home Medications lisinopril 10 mg PO DAILY 08/19/19 dexamethasone [Decadron] 6 mg PO DAILY #9 tab 02/04/21
--- NOTE | 2021-02-07 16:00 | CASEMGMT ---
Social Work Note BEVERLEY received call from Emelyn at [facility] stating they are able to accept pt today, asked if pt has had COVID vaccination. BEVERLEY placed a call to pt's son Inés and left message letting him know pt has been accepted to [facility], will discharge there today. asked if pt has had COVID vaccination. SW had yet to receive call back from Jose/Anjum. BEVERLEY placed a call to pt's daughter Aliza. Aliza states pt has not had COVID vaccination, pt was planning on getting vaccination Friday when he goes to his PCP appointment. BEVERLEY informed Aliza that this worker will let [facility] know this information. Aliza states understanding. SW in to speak with pt. SW introduced self and role. Pt is alert and orientated x2-3. BEVERLEY informed pt that he will be discharged to [facility] today. Pt states understanding, agreeable to plan. BEVERLEY spoke with RN, pt can transport via wheelchair van. Pt will need 2 Liters Oxygen for transport. BEVERLEY accessed trip assist and arranged transportation via wheelchair van for 5:00pm. Transportation form completed and placed on SNF folder and copy on pt's chart. BEVERLEY placed a call to Emelyn at [facility] and left message updating her on transportation time. BEVERLEY placed a call to both pt's son Inés and pt's daughter Aliza and updated them on discharge and transportation time. Plan: [facility] skilled today with Physician's transporting pt via wheelchair van at 5:00pm [facility] MSW, HOLLOW WARE MAKER
--- NOTE | 2021-02-07 17:05 | PCM.DC.SUM ---
Providers Date of Admission: 02/06/21 Primary Care Physician: Dr. Abimael Lewis MD Reason For Visit: DEBILITY / METABOLIC ENCEPHALOPATHY Diagnosis Discharge Diagnosis (1) Encephalopathy acute: Status: Acute Code(s): G93.40 - Encephalopathy, unspecified (2) COVID-19: Status: Acute Code(s): U07.1 - COVID-19 (3) Debility: Status: Acute Code(s): R53.81 - Other malaise Medications at Discharge Home Medications lisinopril 10 mg PO DAILY 08/19/19 dexamethasone [Decadron] 6 mg PO DAILY #9 tab 02/04/21 Hospital Course Operations None Procedures None Summary of Care Provided Minutes Spent on Discharge: 35 Hospital Course: Per HPI: MATT LEWIS, is a 85 M with a significant history of who presents with a persistent confusion. Of note patient was admitted on 02/02/2021 and discharged on 02/04/2021 for COVID-19 and encephalopathy secondary to COVID-19. His family report that ever since patient was discharged he has continued to be hypoxic on ambulation. Further he continues to be confused and family think that the unable to take care of him. Family report that with a walker his weakness has improved. Patient also has cough occasionally productive for sputum. His appetite is fair. Patient was was diagnosed with Covid 19 on January 24 at 2020 while undergoing a Covid screen in preparation for possible lithotripsy. He was discharged home on Decadron. Of note patient has also been hospitalized at a hospital with COVID-19. Hospital Course: 1. Metabolic encephalopathy versus toxic encephalopathy secondary to COVID-19 infection versus [id number]-[id number]-swlt-old male had a preoperative testing on January 25 with a Covid test which did come back positive. He did become little bit symptomatic with shortness of breath over the weekend and presented to the hospital. He was discharged home at family's request however he became more confused and was brought back to the hospital for placement. He is aware of where he is who he is and what year it is however he is confused about his recent history, he believes that he has been hospitalized for 11days in the hospital to complete quarantine. Given his need for oxygen he will need to complete a 20-day quarantine from the date of his test since he did not have any significant symptoms prior to his testing. He is outside the window for remdesivir and I would recommend continuing with Decadron at the SNF. I discussed with him the plan to discharge him to a SNF and he has expressed understanding of the risk and benefits of going and would like to go today if possible. He is on approximately 2 L at rest and is on 6 mg of Decadron daily he has about 8 more days of Decadron to complete his course. I would recommend that if his blood pressure climbs with this be addressed secondary to his Decadron and if he starts to get worsening confusion would consider discontinuation of his Decadron completely. Physical Exam Const alert, oriented x3 and no apparent distress General Appearance: cooperative HEENT normocephalic Mouth: dry mucous membranes Eyes PERRL, EOMs intact bilaterally and conjunctivae normal Neck supple and no JVD Resp normal respiratory effort, no retractions and no use of accessory muscles Auscultation: wheezes; Negative for crackles, rales or rhonchi Cardio regular rate, regular rhythm, S1 normal heart sound, S2 normal heart sound and no murmurs GI soft to palpation, non-tender and non-distended; Negative for hepatosplenomegaly Extremity no clubbing, cyanosis or edema Skin no rashes or lesions noted Neuro no focal motor deficits and no sensory deficits noted Psych affect normal Appearance: appropriate Weight / BMI Weight Weight: 164 lb 14.492 oz Body Mass Index (BMI) 24.3 ABG / Lab / Microbiology Data Result Diagrams: 02/06/21 18:50 02/07/21 06:50 Laboratory: Laboratory Results - last 24 hr 02/06/21 18:50: WBC 8.5, RBC 5.13, Hgb 16.0, Hct 46.9, MCV 91.4, MCH 31.2, MCHC 34.1, RDW Std Deviation 48.3 H, RDW Coeff of Gilberto 14.4, Plt Count 330, MPV 10.5, Immature Gran % (Auto) 1.100 H, Neut % (Auto) 85.1 H, Lymph % (Auto) 7.5 L, [place] % (Auto) 5.7, Eos % (Auto) 0.0, Baso % (Auto) 0.6, Absolute Neuts (auto) 7.2, Absolute Lymphs (auto) 0.64 L, Nucleated RBC % 0, Differential Comment SCANNED 02/06/21 18:50: Sodium 134 L, Potassium 4.2, Chloride 104, Carbon Dioxide 24.0, Anion Gap 6, BUN 31 H, Creatinine 1.05, Estim Creat Clear Calc 53.31, Est GFR (MDRD) Af Amer 87, Est GFR (MDRD) Non-Af 72, BUN/Creatinine Ratio 29.5 H, Glucose 167 H, Calcium 9.2, Total Bilirubin 0.80, AST 83 H, ALT 82 H, Alkaline Phosphatase 80, Troponin I High Sens 26, C-React Prot Ext Range 34.50 H, Total Protein 7.5, Albumin 3.2, Globulin 4.3 H, Albumin/Globulin Ratio 0.7 L 02/06/21 19:14: D-Dimer Quant (PE/DVT) 1.30 H* 02/06/21 19:14: PT 14.6, INR 1.2, APTT 29.1 02/06/21 19:21: Urine Color Yellow, Urine Clarity Clear, Urine pH 6.0, Ur Specific [place] 1.015, Urine Protein 30 H, Urine Glucose (UA) 50 H, Urine Ketones Negative, Urine Occult Blood 10 H, Urine Nitrite Negative, Urine Bilirubin Negative, Urine Urobilinogen 1 H, Ur Leukocyte Esterase Negative, Urine RBC 0-5 SEEN, Urine WBC 0 SEEN, Ur Squamous Epith Cells 0 SEEN, Urine Bacteria 0 SEEN, Urine Mucus 0 SEEN 02/07/21 00:40: Procalcitonin 0.09 02/07/21 06:50: Sodium 135 L, Potassium 4.3, Chloride 104, Carbon Dioxide 23.0, Anion Gap 8, BUN 26 H, Creatinine 0.88, Estim Creat Clear Calc 63.60, Est GFR (MDRD) Af Amer 107, Est GFR (MDRD) Non-Af 88, BUN/Creatinine Ratio 29.6 H, Glucose 93, Calcium 8.8, TSH 1.55 02/07/21 06:50: Vitamin B12 1501 H Microbiology: Microbiology 02/06/21 19:10 Nasal Secretion SARS-CoV-2 Antigen (Rapid) - Final Radiography Diagnostic Testing: Radiology Impression Brain CT 02/06/21 18:39 IMPRESSION: Chronic involutional changes of the brain. No acute hemorrhage Electronically Signed: Memo Nesbitt MD at 20:32 EDT , Service support , Chest CTA 02/06/21 19:52 IMPRESSION: No demonstrated PE, or thoracic aortic aneurysm or dissection Underlying emphysema with chronic interstitial changes and superimposed airspace and interstitial opacifications in the periphery of both lung gonzalez. This pattern of opacification is most suggestive of Covid pneumonia. Calcified coronary vessels Degenerative bony changes Electronically Signed: Memo Nesbitt MD at 20:48 EDT , Service support , Chest X-Ray 02/06/21 20:05 IMPRESSION: Progression of diffuse interstitial and airspace opacification since the previous study. Follow-up recommended to assure resolution Electronically Signed: Memo Nesbitt MD at 20:45 EDT , Service support , Meaningful Use Info Meaningful Use Diagnoses (Choose all that apply): None applicable Discharge Plan Admission Admit Date/Time: 02/06/21 21:27 Attending Provider: Tariq Gong Primary Care Provider: Abimael Lewis Discharge Orders/Prescriptions Prescriptions: Continued lisinopril 10 MG tablet 10 mg PO DAILY RF: 0 dexamethasone [Decadron] 6 mg tablet 6 mg PO DAILY Qty: 9 RF: 0 Referrals / Follow Up: Abimael Lewis MD [Primary Care Provider] - Disposition Disposition (needs filled in before D/C Order can be placed): Retirement Facility Charges/Coding Visit Charges OBSV E&M: 95315 Observation care discharge
--- NOTE | 2021-02-07 17:05 | NURSING ---
report [facility] to [facility]
== END 2021-02-07 17:40 | disposition skilled nursing facility (03) ==
LOC: ED 18:24 → MS3 21:35
PROVIDERS: Admitting Provider Hospitalist; Emergency Provider Student in an Organized Health Care Education/Training Program; PCP Family Medicine; Visit Provider Family Medicine
DX: G93.40 Encephalopathy, unspecified (principal); R62.7 Adult failure to thrive; R06.02 Shortness of breath; K21.9 Gastro-esophageal reflux disease without esophagitis; I10 Essential (primary) hypertension; E86.0 Dehydration; Z79.899 Other long term (current) drug therapy; Z86.16 Personal history of COVID-19; Z68.24 Body mass index [BMI] 24.0-24.9, adult
CPT/HCPCS: 36415; 70450; 71045; 71275; 80048; 80053; 81001; 82607; 84145; 84443; 84484; 85025; 85379; 85610; 85730; 86140; 87426; 93005; 96372; 96374; 97161; 97166; 99218; 99285; J7030; Q9967; A4216; G0378

== ENCOUNTER → 2021-05-25 15:11 | Outpatient (CLI) | payer MEDICARE, OTHER, SELFPAY ==
--- NOTE | 2021-05-25 15:16 | VDLE_ITS ---
Reason For Study: SWELLING RIGHT GSV is normal. CFV is compressible, spontaneous, phasic, competent and demonstrates normal augmentation. FV is compressible, spontaneous, phasic, competent and demonstrates normal augmentation. POP V is compressible, spontaneous, phasic, competent and demonstrates normal augmentation. T/P Trunk is compressible. PTV is compressible. RT PerV is compressible. Procedure This is a venous duplex using B-mode, color flow and spectral Doppler. Exam performed in department. A preliminary report was called and/or faxed to DR LEWIS. VL/Venous Duplex US, Unilateral Interpretation Summary Deep veins of the right lower extremity are patent and compressible segmentally . There is no evidence of right lower extremity deep vein thrombosis. Valvular competence vikash ears intact within the proximal deep venous system on the right . The right great saphenous vein a ppears patent and compressible segmentally. Ordering Physician: Abimael Lewis Referring Physician: Abimael Lewis Performed By: Tricia Desai, RDCS, RVT
== END ==
PROVIDERS: PCP Family Medicine; Referring Provider Family Medicine; Visit Provider Family Medicine
DX: M79.89 Other specified soft tissue disorders (principal)
CPT/HCPCS: 93971

== ENCOUNTER 2021-06-18 13:11 | Outpatient (CLI) | payer MEDICARE, OTHER, SELFPAY ==
[2021-06-18 14:07] LABS: Absolute Lymphocyte Count 2.48 X10^3/uL (0.83-4.51); Absolute Neutrophil Count 3.9 X10^3/uL (2.0-7.7); Basophil# 0.03 X10^3/uL; Basophil% 0.4 % (0-1); Eosinophil# 0.27 X10^3/uL; Eosinophils% 3.6 % (0-5); Hematocrit 49.5 % (40-54); Hemoglobin 15.9 g/dL (13.0-16.5); Lymphocyte # 2.48 X10^3/ul (0.83-4.51); Lymphocyte % 33.2 % (19-41); Mean Corp Hgb Conc 32.1 g/dL (32-36); Mean Corpuscular Hgb 30.9 pg (27.0-32.0); Mean Corpuscular Volume 96.1 fL (80-94); Mean Platelet Vol. 9.9 fl (6.2-12.0); Monocyte# 0.73 X10^3/uL; Monocyte% 9.8 % (0-10); NRBC Flagged by Analyzer 0 % (0-5); Neutrophil # 3.91 X10^3/uL (2.7-7.7); Neutrophil % 52.5 % (47-70); Platelet Count 304 K/mm3 (150-450); RBC Distribution Width CV 13.3 % (11.6-14.6); RBC Distribution Width SD 47.5 fl (35.1-43.9); Red Blood Count 5.15 M/mm3 (4.6-6.2); White Blood Count 7.5 K/mm3 (4.4-11.0)
[2021-06-18 14:40] LABS: ALB/GLOB Ratio 0.9 RATIO (0.9-2.4); AST(SGOT) 24 U/L (15-37); Alanine Aminotransfer ALT/SGPT 27 U/L (16-61); Albumin, Serum 4.1 g/dL (3.2-5.0); Alkaline Phosphatase 93 U/L (45-117); Anion Gap 8 (5-15); BUN 22 mg/dL (7-18); BUN/Creat Ratio 16.9 RATIO (10-20); Calcium,Total 9.9 mg/dL (8.5-10.1); Chloride 94 mmol/L (98-107); EST Glomerular Filtration Rate 56 mL/min (>60); Est Glom Filt Rate - Afr Amer 68 mL/min (>60); Globulin 4.6 g/dL (2.2-4.2); Glucose 108 mg/dL (74-106); Potassium 4.2 mmol/L (3.5-5.1); Protein, Total 8.7 g/dL (6.4-8.2); Sodium Level 133 mmol/L (136-145)
[2021-06-18 14:51] LABS: Erythrocyte Sedimentation Rate 16 mm/hr (0-20)
== END 2021-06-18 23:59 | disposition short-term general hospital (02) ==
PROVIDERS: PCP Family Medicine; Referring Provider Family Medicine; Visit Provider Family Medicine
DX: M79.89 Other specified soft tissue disorders (principal)
CPT/HCPCS: 36415; 80053; 85025; 85652

== ENCOUNTER 2021-07-11 13:43 | Outpatient (CLI) | payer MEDICARE, OTHER, SELFPAY ==
--- NOTE | 2021-07-11 13:46 | CT_ITS ---
STUDY: CT ABDOMEN AND PELVIS WITH CONTRAST REASON FOR EXAM: Male, 85 years old. Chronic Constipation AND RIGHT LEG SWELLING. R/O MASS RADIATION DOSAGE (If Supplied By Facility): CTDIvol = ( 15.13 ) mGy, DLP = ( 1912.07 ) mGycm TECHNIQUE: Transaxial images were obtained from the dome of the diaphragm to the symphysis pubis without oral contrast. IV 100mL Isovue-370 was administered. Sagittal and coronal images were reconstructed. Individualized dose optimization techniques were used for this CT. COMPARISON: Comparison is made with prior study dated 01/01/2021. FINDINGS: Mild degree of increased markings at the lung bases suggestive of atelectasis and/or scarring. Coronary artery calcification. There is decreased attenuation of the liver consistent with steatosis. Normal gallbladder and extrahepatic biliary system. Normal spleen. Normal pancreas. Normal bilateral adrenal glands. Multiple cysts are also seen in the right kidney. The largest cyst measures 4.2 cm x 4 cm. Once again, multiple cysts are seen in the left kidney. The largest cyst measures 6.3 cm x 4.6 cm. There is a small hiatal hernia. Normal small intestine. There are multiple colonic diverticula consistent with diverticulosis. The appendix is visualized and appears normal. There is diffuse atherosclerotic calcification of the abdominal aorta and its major visceral branches, without a demonstrated aneurysm. Normal inferior vena cava. Normal retroperitoneum. There are 2 adjacent calculi at the base of the bladder. The larger measures 7.9 mm. There is enlargement of the prostate gland. It measures 5.57 x 4.7 cm. It is of heterogeneous density. This causes indentation at the bladder base. Normal abdominal wall. There are diffuse degenerative changes of the visualized lumbar spine. 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 CT/Abdomen/Pelvis WITH Contrast IMPRESSION: Stable multiple bilateral renal cysts more prominent on the left side. Heterogeneous enlargement of the prostate with indentation the bladder base. Bladder calculi are seen in the base of the bladder. Sigmoid diverticulosis. Electronically Signed: Kei Hemphill MD at 14:39 EST ,
== END 2021-07-11 23:59 | disposition short-term general hospital (02) ==
LOC: CT 13:45
PROVIDERS: PCP Family Medicine; Referring Provider Family Medicine; Visit Provider Family Medicine
DX: K59.09 Other constipation (principal)
CPT/HCPCS: 74177; Q9967

== ENCOUNTER 2021-08-08 10:42 | Day surgery (SDC) | payer MEDICARE, OTHER, SELFPAY ==
[2021-08-08] VITALS (10 sets, daily range): BP systolic 109–163; BP diastolic 59–90; PULSE 73–93; RESP 16–18; TEMP 36.2–37.2; O2SAT 92–99; BMI 25.7
[2021-08-08] MEDS: Lactated Ringers 1,000 ML 15 ML IV (11:40)
[2021-08-08] MEDS: Cefazolin 2 GM in 0.9% Normal Saline 100 ML IV (15:38)
--- NOTE | 2021-08-08 16:33 | PCM.HP.STD ---
HPI - General HPI Narrative 85-year-old male with large bladder stones and obstructive prostate presents for laser of the bladder stones and transurethral section of the prostate [facility] Medical History (Updated 08/03/21 @ 09:12 by Estefani Pinzon) Bronchiectasis without acute exacerbation Chronic nonallergic rhinitis Constipation Delirium Frequent falls History of COVID-19 History of edema History of kidney stones HTN (hypertension) Loss of hearing Non-smoker Prostate disease RML pneumonia Supraclavicular adenopathy Wears dentures Wears glasses Wears partial dentures Home Medications lisinopril 10 mg PO DAILY 08/19/19 [History Last Taken 02/02/21] potassium 99 mg PO DAILY 08/03/21 [History Last Taken Unknown] ciprofloxacin HCl [Cipro] 500 mg PO BID #6 tab 08/08/21 [Rx Last Taken Unknown] Allergy/AdvReac Type Severity Reaction Status Date / Time Penicillins AdvReac Other-nervo Verified 08/08/21 11:19 us Family History Brother Heart disease Surgical History (Updated 08/03/21 @ 09:12 by Estefani Pinzon) History of inguinal hernia repair, bilateral Hx of cystoscopy Social History Smoking Status: Never smoker second hand exposure: Yes alcohol intake: never substance use type: does not use Vital Signs Vital Signs Vital Signs: 08/08/21 11:21 Temperature 98.9 F Temperature Source Temporal Pulse Rate 77 Respiratory Rate 16 Respiratory Pattern Normal Blood Pressure 111/66 Blood Pressure Mean 81 Blood Pressure Source Monitor Blood Pressure Position Semi-Fowlers Blood Pressure Location Left Arm Pulse Ox 98 Oxygen Delivery Method Room Air Weight Weight: 79 kg Body Mass Index (BMI) 25.7
--- NOTE | 2021-08-08 16:33 | PCM.DC ---
Discharge Instructions Diet Discharge Diet: No restrictions Activity Discharge Activity: Return to Normal Activity and May Not Drive (while taking narcotic pain medications.) Dressing / Incision Call your doctor if you observe: Fever of 101 or Higher Follow Up Care Please Follow Up With: Ezequiel Bull MD When: Call [phone] for an appointment Test Results: Test results from this visit will be discussed in further detail at your follow-up appointment, if applicable. Discharge Plan Admission Primary Reason for Your Visit: TURP Attending Provider: Ezequiel Bull Primary Care Provider: Abimael Lewis Instructions Patient Instructions: INÉS Home Recovery Discharge Orders/Prescriptions Prescriptions: New ciprofloxacin HCl [Cipro] 500 mg tablet 500 mg PO BID Qty: 6 RF: 0 Continued lisinopril 10 MG tablet 10 mg PO DAILY RF: 0 potassium 99 mg Tablet 99 mg PO DAILY RF: 0 Referrals / Follow Up: Abimael Lewis MD [Primary Care Provider] - Ezequiel Bull MD [STAFF PHYSICIAN] - Disposition Disposition (needs filled in before D/C Order can be placed): Home, Self Care
--- NOTE | 2021-08-08 16:33 | PCM.OPRPT ---
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 We discussed how a prostate resection is done and we discussed the risk of the surgery including, bleeding, infection, retrograde ejaculation, changes with ejaculation or intercourse,. We discussed the possibility that the resection of the prostate may not alleviate his urinary symptoms. We discussed the small risk of developing scar tissue along the urethral channel and strictures. We also discussed the chance of the prostate could grow back and he may need further surgery or treatment in the future for prostate problems. The urethra and genitals were prepped and draped in usual sterile fashion. Went into the bladder using a 24 Brazilian cystoscope. We used the laser bridge through the scope for continuous irrigation. Then using the laser bridge we introduced a laser fiber into the bladder and the stone in the bladder was trapped against the back wall. The stone measured larger than 3 cm in total size. The stone was then lasered using laser lithotripsy the small little pieces all the pieces were evacuated on the bladder. After all the stones were removed then the scope was removed there was minimal bleeding. Penis and testicles then were prepped and draped in usual sterile fashion. Went into the bladder using the visual obturator with a resectoscope. Once inside the bladder identified the right and left ureteral orifice. I then identified the prostate and the anatomy of the prostate. I marked out the area of the sphincter and the verumontanum was identified. I then proceeded with the prostate resection first resected the median lobe. And then resected the right lobe of the prostate. Then to resect the left lobe of the prostate. I then resected the apical tissue of the prostate. This was a complete resection of all obstructive tissue to improve voiding and relieve obstruction. I then made sure that there was no injury to the sphincter or the verumontanum was still intact. At the end of the resection all the chips were Ellik out of the bladder. I then identified the left and right ureteral orifice and these were confirmed to be in good position and effluxing and not injured. The resectoscope was removed, a 22 Brazilian catheter was placed into the bladder on continuous irrigation. And the urine was fairly light pink color and draining normally. He was taken back to the PACU in good condition. Surgeon: gema Type of Anesthesia: General Drains: 22fr [address] way beltrán Admit VTE Documentation VTE Present on Admission: No VTE Mechan Device Prophylaxis: SCD's VTE Pharm Prophylaxis ordered?: No
[2021-08-08] MEDS: Ciprofloxacin 500 MG Tablet PO (21:20)
[2021-08-09 04:06] VITALS: BP 105/57; PULSE 93; RESP 18; TEMP 36.3; O2SAT 92
--- NOTE | 2021-08-09 07:10 | PCM.PN.BLA ---
Progress Note urine clear d/c beltrán home today
[2021-08-09 08:08] VITALS: BP 114/62; PULSE 88; RESP 18; TEMP 36.5; O2SAT 98
[2021-08-09] MEDS: Lisinopril 10 MG Tablet PO (08:16)
[2021-08-09] MEDS: Ciprofloxacin 500 MG Tablet PO (08:16)
[2021-08-09] MEDS: Potassium Chloride Oral Tablet 10 MEQ PO (08:16)
[2021-08-09 11:53] VITALS: BP 126/66; PULSE 68; RESP 18; TEMP 36.6; O2SAT 98
--- NOTE | 2021-08-09 12:01 | NURSING ---
spoke with daughter Aliza and updated per pt request. Aliza states she will be in to get him.
--- NOTE | 2021-08-09 12:55 | PROS_PTH ---
PATIENT: MATT LEWIS LOC[place] [facility] [place][id number] AGE/SX: 85/M ROOM: RE08/08/[address]: Dr. Ezequiel Bull MD : [id number] BED: DIS: 08/09/2021 SPEC #: [id number] RECD: 08/09/21 13:55 STATUS: DANIEL KNOX #: [id number] CHUCKY: 08/09/21 12:[address]: Ezequiel Bull DEPT: SURGICAL PATHOLOGY RECD BY: Summer Vasquez ENTERED: 08/10/21 09:35 SP TYPE: TURP OTHR DR: Dr. Abimael Lewis MD Tissues: Prostate, NOS Procedures: Surgery Specimen Level IV HEADER OPERATION: Transurethral resection prostate with Olympus PRE-OP DIAGNOSIS: BPH with lower urinary tract symptoms TISSUE SUBMITTED: Prostate tissue MICROSCOPIC DIAGNOSIS Prostate, transurethral resection: Benign nodular hyperplasia, glandular and stromal types. Mild chronic inflammation. AM:rommel 08/13/2021 MICROSCOPIC DESCRIPTION Slides are reviewed. GROSS DESCRIPTION Received is one container labeled with the patient's name and designated prostate tissue. The specimen consists of multiple irregular fragments of pink-kaur, rubbery, soft tissue that in aggregate weigh 9.2 gm and measure in aggregate 5.5 x 4 x 2 cm. A few fragments of brown stones are also noted. The entire soft tissue is submitted in ten cassettes. / SJ:rommel 08/10/2021 TC:3 CPT: 38121
== END 2021-08-09 12:46 | disposition home or self-care (01) ==
LOC: SDC 10:48 → AC 16:31 → MS3 08-09 10:42
PROVIDERS: PCP Family Medicine; Visit Provider Urology
PROC: 0TBB8ZZ Excision of Bladder, Via Natural or Artificial Opening Endoscopic (ICD-10-PCS; CPT 52601; principal; 2021-08-08 12:45)
PROC: (CPT 52601; 2021-08-08 12:45)
DX: N40.1 Benign prostatic hyperplasia with lower urinary tract symptoms (principal); N41.9 Inflammatory disease of prostate, unspecified; N21.0 Calculus in bladder; N13.8 Other obstructive and reflux uropathy; I10 Essential (primary) hypertension; E78.5 Hyperlipidemia, unspecified; K21.9 Gastro-esophageal reflux disease without esophagitis; R29.6 Repeated falls; Z79.899 Other long term (current) drug therapy; Z86.16 Personal history of COVID-19
CPT/HCPCS: 52601; 52353; 88305; J7120; J2405

== ENCOUNTER → 2022-02-08 | Outpatient (CLI) | payer MEDICARE, OTHER, SELFPAY ==
[2022-02-08 11:54] LABS: Bacteria 0 SEEN /hpf (None Seen); Mucous, Urine 0 SEEN /hpf (<or=2+)
[2022-02-08 12:10] LABS: Hematocrit 48.8 % (40-54); Hemoglobin 16.7 g/dL (13.0-16.5); Mean Corp Hgb Conc 34.2 g/dL (32-36); Mean Corpuscular Hgb 32.6 pg (27.0-32.0); Mean Corpuscular Volume 95.1 fL (80-94); Mean Platelet Vol. 9.7 fl (6.2-12.0); Platelet Count 234 K/mm3 (150-450); RBC Distribution Width CV 14.4 % (11.6-14.6); RBC Distribution Width SD 50.7 fl (35.1-43.9); Red Blood Count 5.13 M/mm3 (4.6-6.2)
[2022-02-08 12:56] LABS: ALB/GLOB Ratio 0.9 RATIO (0.9-2.4); AST(SGOT) 19 U/L (15-37); Alanine Aminotransfer ALT/SGPT 21 U/L (16-61); Albumin, Serum 3.8 g/dL (3.2-5.0); Alkaline Phosphatase 97 U/L (45-117); Anion Gap 9 (5-15); BUN 24 mg/dL (7-18); BUN/Creat Ratio 18.2 RATIO (10-20); Calcium,Total 9.3 mg/dL (8.5-10.1); Chloride 96 mmol/L (98-107); Creatinine, Serum 1.32 mg/dL (0.70-1.30); EST Glomerular Filtration Rate 55 mL/min (>60); Est Glom Filt Rate - Afr Amer 66 mL/min (>60); Globulin 4.3 g/dL (2.2-4.2); Glucose 94 mg/dL (74-106); PSA,Total- Diagnostic 2.03 ng/mL (0.0-4.0); Potassium 4.5 mmol/L (3.5-5.1); Protein, Total 8.1 g/dL (6.4-8.2); Sodium Level 130 mmol/L (136-145)
[2022-02-08 15:04] LABS: Color, Urine Yellow (Yellow); Glucose, Dipstick Normal (Normal); Ketone-Dipstick Negative (Negative); Leukocyte Esterase-Dipstick 25 /ul (Negative); Nitrite-Dipstick Negative (Negative); Occult Blood-Urine 10 /ul (Negative); Protein-Dipstick 15 mg/dl (Negative); Specific Gravity, Urine 1.015 (1.002-1.030); Urine Bilirubin Dipstick Negative (Negative); Urine Clarity Clear (Clear); Urine Urobilinogen Normal (Normal)
[2022-02-08 15:15] LABS: White Blood Cells 0-5 SEEN /hpf (0-5)
[2022-02-08 15:16] LABS: Red Blood Cells-Urine 0-5 SEEN /hpf (0-5); Squamous Epithelial Cells - UA 0-5 SEEN /hpf (0-5)
== END | disposition home or self-care (01) ==
LOC: MFPLAB 11:11
PROVIDERS: PCP Family Medicine; Visit Provider Family Medicine
DX: R10.30 Lower abdominal pain, unspecified (principal); R35.0 Frequency of micturition
CPT/HCPCS: 36415; 80053; 81001; 84153; 85027; 87086; 87088

== ENCOUNTER → 2022-03-21 | Outpatient (CLI) | payer MEDICARE, OTHER, SELFPAY ==
[2022-03-21 15:56] LABS: Microalbumin,Random Urine 49.8 mg/L (NO RANGE EST.); Microalbumin:Creatinine Ratio 42.2 mg/g CRE (<30 mg/g CRE)
== END | disposition home or self-care (01) ==
LOC: MFPLAB 13:23
PROVIDERS: PCP Family Medicine; Referring Provider Family Medicine; Visit Provider Family Medicine
DX: I10 Essential (primary) hypertension (principal)
CPT/HCPCS: 82043; 82570

== ENCOUNTER → 2022-07-31 | Outpatient (CLI) | payer MEDICARE, OTHER, SELFPAY | END | disposition home or self-care (01) | LOC: MFPLAB 15:28 | PROVIDERS: PCP Family Medicine; Referring Provider Family Medicine; Visit Provider Family Medicine | DX: K92.1 Melena (principal) | CPT/HCPCS: 82274 ==

== ENCOUNTER → 2022-08-01 | Outpatient (CLI) | payer MEDICARE, OTHER, SELFPAY ==
[2022-08-01 12:47] LABS: Vitamin D,25 Hydroxy 36.8 ng/mL
[2022-08-01 13:06] LABS: ALB/GLOB Ratio 1.1 RATIO (0.9-2.4); AST(SGOT) 19 U/L (15-37); Alanine Aminotransfer ALT/SGPT 18 U/L (16-61); Albumin, Serum 3.9 g/dL (3.2-5.0); Alkaline Phosphatase 88 U/L (45-117); Anion Gap 5 (5-15); BUN 17 mg/dL (7-18); BUN/Creat Ratio 13.7 RATIO (10-20); Calcium,Total 9.9 mg/dL (8.5-10.1); Chloride 99 mmol/L (98-107); Creatinine, Serum 1.24 mg/dL (0.70-1.30); EST Glomerular Filtration Rate 59 mL/min (>60); Est Glom Filt Rate - Afr Amer 71 mL/min (>60); Globulin 3.7 g/dL (2.2-4.2); Glucose 75 mg/dL (74-106); Potassium 3.9 mmol/L (3.5-5.1); Protein, Total 7.6 g/dL (6.4-8.2); Sodium Level 135 mmol/L (136-145)
[2022-08-01 13:58] LABS: Absolute Neutrophil Count 6.2 X10^3/uL (2.0-7.7); Basophil# 0.05 X10^3/uL; Basophil% 0.5 % (0-1); Hematocrit 49.1 % (40-54); Lymphocyte % 23.4 % (19-41); Mean Corp Hgb Conc 32.6 g/dL (32-36); Mean Corpuscular Hgb 31.4 pg (27.0-32.0); Mean Corpuscular Volume 96.5 fL (80-94); Mean Platelet Vol. 10.2 fl (6.2-12.0); Monocyte# 1.02 X10^3/uL; Monocyte% 10.4 % (0-10); NRBC Flagged by Analyzer 0 % (0-5); Neutrophil % 63.2 % (47-70); Platelet Count 325 K/mm3 (150-450); RBC Distribution Width CV 14.4 % (11.6-14.6); RBC Distribution Width SD 51.3 fl (35.1-43.9); Red Blood Count 5.09 M/mm3 (4.6-6.2); White Blood Count 9.8 K/mm3 (4.4-11.0)
== END | disposition home or self-care (01) ==
LOC: MFPLAB 10:33
PROVIDERS: PCP Family Medicine; Referring Provider Family Medicine; Visit Provider Family Medicine
DX: N18.31 Chronic kidney disease, stage 3a (principal)
CPT/HCPCS: 36415; 80053; 82306; 85025

== ENCOUNTER → 2022-12-13 | Outpatient (CLI) | payer MEDICARE, OTHER, SELFPAY ==
[2022-12-13 15:57] LABS: Vitamin B12 586 pg/mL (211-911)
[2022-12-13 16:19] LABS: T4 Free Direct 0.96 ng/dL (0.76-1.46); Thyroid Stim Hormone (TSH) 3.78 uIU/mL (0.358-3.74)
[2022-12-14 13:17] LABS: Syphilis Antibodies Non-reactive
== END | disposition home or self-care (01) ==
LOC: MTLAB 11:32
PROVIDERS: PCP Family Medicine; Referring Provider Family Medicine; Visit Provider Family Medicine
DX: G31.84 Mild cognitive impairment of uncertain or unknown etiology (principal)
CPT/HCPCS: 36415; 82607; 82746; 84439; 84443; 86780

== ENCOUNTER → 2022-12-25 | Outpatient (CLI) | payer MEDICARE, OTHER, SELFPAY ==
--- NOTE | 2022-12-25 13:49 | CT_ITS ---
INDICATION: change in memory, gait and occassional tremor. possible NPH EXAMINATION: CT BRAIN - CT Head or Brain W/O Contrast Injection TECHNIQUE: Multiple axial images were obtained of the head without intravenous contrast. A radiation dose optimization technique was used for this scan. IV Contrast dosage and agent: None. RADIATION DOSAGE (If Supplied By Facility): CTDIvol = ( 47.06 ) mGy, DLP = ( 907.97 ) mGycm COMPARISON: FINDINGS: BRAIN PARENCHYMA: There is mild periventricular and subcortical white matter lucency suggestive of small vessel ischemic disease. No intra- or extra-axial hemorrhage. No evidence of acute infarct. No intracranial mass or mass effect. There is preservation of the goldstein/white matter interface. Posterior fossa structures are unremarkable. CSF SPACES: Appropriate for age. No hydrocephalus. Basal cisterns are patent. CALVARIUM, SKULL BASE, PARANASAL SINUSES AND MASTOID AIR CELLS: Clear. No discrete lytic or blastic abnormalities. ORBITS: Both globes, extraocular muscles, optic nerves and retrobulbar fat appear unremarkable. CT/Brain/Head without Contrast IMPRESSION: Small vessel ischemic changes. Otherwise unremarkable Brain CT without contrast. Electronically Signed: Art Nagel, at 14:16 EDT ,
== END | disposition home or self-care (01) ==
LOC: CT 13:45
PROVIDERS: PCP Family Medicine; Referring Provider Family Medicine; Visit Provider Family Medicine
DX: G31.84 Mild cognitive impairment of uncertain or unknown etiology (principal)
CPT/HCPCS: 70450

== ENCOUNTER 2023-02-04 18:52 | Emergency (ER) | payer MEDICARE, OTHER, SELFPAY ==
[2023-02-04 18:54] VITALS: BP 133/85; PULSE 96; RESP 18; TEMP 36.6; O2SAT 95; BMI 25.1
--- NOTE | 2023-02-04 19:40 | CT_ITS ---
INDICATION: trauma EXAMINATION: CT CERVICAL SPINE - CT Spine Cervical W/O Contrast Injection TECHNIQUE: Helically acquired images were obtained of the cervical spine. 2D reformatted images were reviewed. A radiation dose optimization technique was used for this scan. IV Contrast dosage and agent: None. COMPARISON: CT brain February 04, 2023. FINDINGS: VERTEBRAE: No fracture or traumatic subluxation. No discrete lytic or blastic abnormality. Normal alignment. Normal craniocervical junction and cervicothoracic junction. Moderate degenerative changes C1-C2 articulation with peridental ligamentous calcifications. DISCS and SPINAL CANAL: Multilevel intervertebral disc height loss with significant intervertebral disc height loss and degenerative endplate changes C5-6 and C6-7 levels. There is significant vertebral chart arthropathy at these levels. This does result in mild neural foraminal narrowing most notably at C6-7 bilaterally. There is significant asymmetric facet arthropathy on the left, C2-3, C3-4, C4-5 levels. There is joint space widening at C5-6. Sclerotic and cystic changes are present in the left C5-6 facet. No critical stenosis. NECK SOFT TISSUES: No prevertebral soft tissue swelling. There is no cervical adenopathy. There are some carotid bulb intimal calcifications. LUNG APICES: Incompletely visualized consolidation versus less likely mass, right lateral lung apex. Consider pulmonary contusion. CT/Spine Cervical without Contras IMPRESSION: No fracture or focal malalignment. Multilevel degenerative disc, endplate and facet arthropathy as detailed above. Right upper lobe, incompletely visualized consolidation, possible pulmonary contusion or less likely mass lesion. Correlation with CT chest is recommended. Electronically Signed: Liam Piper DO at 21:19 EDT ,
--- NOTE | 2023-02-04 19:40 | CT_ITS ---
INDICATION: trauma EXAMINATION: CT BRAIN - CT Head or Brain W/O Contrast Injection TECHNIQUE: Multiple axial images were obtained of the head without intravenous contrast. A radiation dose optimization technique was used for this scan. IV Contrast dosage and agent: None. COMPARISON: CT brain December 25, 2022 and February 06, 2021. FINDINGS: BRAIN PARENCHYMA: No intra- or extra-axial hemorrhage. No intracranial mass or mass effect. Richardson/white matter differentiation is maintained and there is no blurring of the basal ganglia. There is no hyperdense vessel. There is a decreased density bilateral periventricular white matter with a more focal area of decreased density right frontal lobe periventricular white matter, unchanged dating back to at least February 06, 2021. Posterior fossa structures are unremarkable. CSF SPACES: Moderate degree decreased parenchymal volume as can be seen in elderly patients. No hydrocephalus. Basal cisterns are patent. CALVARIUM, SKULL BASE, PARANASAL SINUSES AND MASTOID AIR CELLS: Intact calvarium and skull base. No fracture or osseous lesion. Paranasal sinuses are mostly clear with minimal mucosal thickening right maxillary sinus. Mastoid air cells and middle ears are clear. ORBITS: Both globes, extraocular muscles, optic nerves and retrobulbar fat appear unremarkable. ASPECTS Score for Acute Strokes: 10 CT/Brain/Head without Contrast IMPRESSION: No acute intracranial pathology. Chronic small vessel ischemic changes unchanged dating back to February 06, 2021. Electronically Signed: Liam Piper DO at 20:48 EDT ,
--- NOTE | 2023-02-04 19:40 | EX.ED.GENINJ ---
HPI History of Present Illness Chief Complaint: Fall Informant: patient and family Narrative Narrative: Patient presents after a fall with period of confusion. This patient was with his son at a campground. He was sitting on a small cooler he slid off and fell. His son was working under the camper at the time. His dad was on his side. But it looks like he did bump his head as there is a slight abrasion on the forehead. Patient got up and was acting normally initially. No loss of consciousness. Patient states he just slipped. But will when the son was talking to his dad a little after this, his dad asked the son when he retired. Son told him. Dad asked then where he worked. The son told him. The patient then stated that he had a son who worked in the same place. But he was not recognizing his son as actually being his son. This is what prompted the visit. This patient does have dementia. He has had problems recognizing people at sometimes but this was still out of the ordinary. When the patient's daughter showed up he recognized her. He now recognizes the son and states he knew who he was the whole time. Patient has no complaints. He denies being lightheaded or dizzy. He denies hurting himself. He is not on any blood thinners. He now seems back to normal. [facility] Medical History Bronchiectasis without acute exacerbation Chronic nonallergic rhinitis Constipation Delirium Frequent falls History of COVID-19 History of edema History of kidney stones HTN (hypertension) Loss of hearing Non-smoker Prostate disease RML pneumonia Supraclavicular adenopathy Wears dentures Wears glasses Wears partial dentures Home Medications lisinopril 10 mg tablet 10 mg PO DAILY bp 08/19/19 [History Last Taken 02/02/21] potassium 99 mg tablet 99 mg PO DAILY 08/03/21 [History Last Taken Unknown] ciprofloxacin HCl 500 mg tablet (Cipro) 500 mg PO BID #6 tabs 08/08/21 [Rx Last Taken Unknown] guaifenesin 1,200 mg tablet, extended release 12 hr (Mucinex) 1,200 mg PO Q12H #20 tabs 09/18/22 [Rx Last Taken Unknown] hydrochlorothiazide 12.5 mg capsule 12.5 mg PO DAILY 09/18/22 [History Last Taken Unknown] Allergy/AdvReac Type Severity Reaction Status Date / Time Penicillins AdvReac Other-nervo Verified 02/04/23 18:54 us Family History Brother Heart disease Surgical History History of inguinal hernia repair, bilateral Hx of cystoscopy Social History Smoking Status: Never smoker second hand exposure: Yes alcohol intake: never substance use type: does not use ROS ROS ED ROS Narrative A complete review of systems was performed and is negative except as documented in the history of present illness. Some specific details below. Constitutional: No recent fevers or chills. No rigors. Patient has not generally felt ill. He was fine up until this event and he is now back to normal. EYE: No discharge, visual complaints, or pain. ENT: He does have a slight abrasion to the left forehead but patient states it does not really hurt. CV: No chest pain, pressure or aching. No palpitations or irregular beats. Patient has not been presyncopal or syncopal. He had a fall but never passed out. Respiratory: No trouble breathing. No cough. No wheezing. No sputum production. No pain with breathing. GI: No abdominal pain. No nausea vomiting diarrhea. : No frequency dysuria Musculoskeletal: Patient denies any injury in the fall. He states he just slid off. States nothing hurts including with moving and walking. Skin: Abrasion to left forehead. Neuro: No weakness or numbness. No difficulty with speaking. No difficulty understanding speech. No visual loss. Please see history of present illness also for details of transient memory loss. Endocrine: No polyuria or polydipsia. EXAM Physical Exam Narrative Exam Narrative: Patient patient is actually awake alert. No acute distress. He looks comfortable. He is laying on the bed with his arms and legs crossed. HEENT does show slight abrasion to the left forehead but no swelling. No step-off. No other sign of head injury. Oropharynx is normal. Eyes: Range of motion of eyes are normal. No photophobia. Neck is supple and no tenderness Chest shows no tenderness. Breath sounds are equal bilaterally. No coughing. Saturations are normal at 95% on room air showing no hypoxia. Heart is regular. Peripheral pulses are normal. Abdomen is soft completely nontender. No pulsatile mass. Extremities show no sign of trauma. No abrasions contusions deformities tenderness or pain with motion. Neurologically he is awake and alert. He now knows his son and his daughter. He is acting normal per the family. Const Vital Signs: 02/04/23 18:54 Temperature 97.8 F Temperature Source Temporal Pulse Rate 96 Respiratory Rate 18 Blood Pressure 133/85 H Blood Pressure Mean 101 Pulse Ox 95 Oxygen Delivery Method Room Air Discharge Plan Triage Chief Complaint: Fall ED Provider: Kevin Conner Dx/Rx/DC Orders Prescriptions: No Action hydrochlorothiazide 12.5 mg capsule 12.5 mg PO DAILY Mucinex 1,200 mg tablet extended release 12hr 1,200 mg PO Q12H Qty: 20 0RF lisinopril 10 MG tablet 10 mg PO DAILY potassium 99 mg Tablet 99 mg PO DAILY ciprofloxacin HCl [Cipro] 500 mg tablet 500 mg PO BID Qty: 6 0RF Primary Care Provider: Abimael Lewis Referrals: Abimael Lewis MD [Primary Care Provider] -
--- NOTE | 2023-02-04 20:02 | CM.ED ---
Social Work SW performed chart review, patient has HCPOA and LW documents on file as of 2020. Patient's HCPOA is patient's with alternates Jose, son, and Olivia, daughter. Sahara Fisher MSW, KARTHIK
[2023-02-04 20:16] LABS: Absolute Lymphocyte Count 1.64 X10^3/uL (0.83-4.51); Absolute Neutrophil Count 6.5 X10^3/uL (2.0-7.7); Basophil# 0.05 X10^3/uL; Basophil% 0.5 % (0-1); Eosinophil# 0.32 X10^3/uL; Eosinophils% 3.4 % (0-5); Hematocrit 50.7 % (40-54); Hemoglobin 16.6 g/dL (13.0-16.5); Lymphocyte # 1.64 X10^3/ul (0.83-4.51); Lymphocyte % 17.6 % (19-41); Mean Corp Hgb Conc 32.7 g/dL (32-36); Mean Corpuscular Hgb 31.4 pg (27.0-32.0); Mean Corpuscular Volume 95.8 fL (80-94); Monocyte# 0.77 X10^3/uL; Monocyte% 8.3 % (0-10); NRBC Flagged by Analyzer 0 % (0-5); Neutrophil # 6.49 X10^3/uL (2.7-7.7); Neutrophil % 69.9 % (47-70); Platelet Count 304 K/mm3 (150-450); RBC Distribution Width CV 14.3 % (11.6-14.6); RBC Distribution Width SD 50.4 fl (35.1-43.9); Red Blood Count 5.29 M/mm3 (4.6-6.2); White Blood Count 9.3 K/mm3 (4.4-11.0)
[2023-02-04 20:29] LABS: Anion Gap 7 (5-15); BUN 19 mg/dL (7-18); BUN/Creat Ratio 13.3 RATIO (10-20); Calcium,Total 9.7 mg/dL (8.5-10.1); Chloride 96 mmol/L (98-107); Creatinine, Serum 1.43 mg/dL (0.70-1.30); EST Glomerular Filtration Rate 50 mL/min (>60); Est Glom Filt Rate - Afr Amer 60 mL/min (>60); Estimated Creatinine Clearance 35.31 ml/min; Glucose 112 mg/dL (74-106); Potassium 3.7 mmol/L (3.5-5.1); Sodium Level 133 mmol/L (136-145)
[2023-02-04 21:24] VITALS: RESP 18
== END 2023-02-04 21:41 | disposition home or self-care (01) ==
PROVIDERS: Emergency Provider Emergency Medicine; PCP Family Medicine; Visit Provider Emergency Medicine
DX: S00.91XA Abrasion of unspecified part of head, initial encounter (principal); F03.90 Unspecified dementia, unspecified severity, without behavioral disturbance, psychotic disturbance, mood disturbance, and anxiety; I10 Essential (primary) hypertension; W17.89XA Other fall from one level to another, initial encounter
CPT/HCPCS: 70450; 72125; 80048; 85025; 99282; A4216

== ENCOUNTER 2023-03-15 08:29 | Emergency (ER) | payer MEDICARE, OTHER, SELFPAY ==
[2023-03-15 08:30] VITALS: BP 145/80; PULSE 67; RESP 16; TEMP 36.2; O2SAT 98; BMI 26.4
--- NOTE | 2023-03-15 08:42 | CT_ITS ---
EXAM: CT ABDOMEN AND PELVIS WITHOUT INTRAVENOUS CONTRAST CLINICAL INDICATION: Painless Hematuria TECHNIQUE: Helically acquired images were obtained of the abdomen and pelvis without intravenous contrast. This CT exam was performed using one or more of the following dose reduction techniques: automated exposure control, adjustment of the mA and/or kV according to patient size, and/or use of iterative reconstruction technique. CONTRAST: None. RADIATION DOSE: CTDIvol = 6.57 mGy, DLP = 406.59 mGy-cm COMPARISON: CT abdomen and pelvis with contrast 07/11/2021. FINDINGS: LOWER THORAX: Minimal interlobular septal thickening in the posterior lung bases were present previously. Cardiomegaly is unchanged. Small hiatal hernia. ABDOMEN: LIVER: Unremarkable. Homogeneous. GALLBLADDER AND BILE DUCTS: Unremarkable. No calcified gallstones. No gallbladder distention or wall edema. No intra- or extrahepatic biliary ductal dilation. PANCREAS: Unremarkable. No focal cystic mass. SPLEEN: Unremarkable. Normal size without focal cystic or solid mass. ADRENALS: Unremarkable. No nodules. KIDNEYS AND URETERS: Multiple bilateral renal cysts are unchanged. Normal renal size and position. No hydronephrosis. STOMACH AND BOWEL: Multiple diverticula along the sigmoid colon without diverticulitis. No stomach or bowel distention. PELVIS: APPENDIX: Normal. BLADDER: Small anterior urinary bladder wall diverticulum is unchanged. REPRODUCTIVE: Enlarged central lobe of the prostate gland into the posterior urinary bladder wall is at least BPH. ABDOMEN and PELVIS: INTRAPERITONEAL SPACE: Unremarkable. No ascites or other fluid collection. No free air. BONES/JOINTS: Grade 1 anterolisthesis of L5 on S1 secondary to bilateral L5 pars defects are unchanged. No suspicious lytic or blastic abnormality. SOFT TISSUES: Unremarkable. No discrete abdominal or pelvic wall hernia. VASCULATURE: Calcifications of the aortic valvular cusps were present previously. Normal pericardium. Abdominal aorta is non-dilated. LYMPH NODES: Unremarkable. No enlarged lymph nodes. CT/Abdomen/Pelvis without Cont IMPRESSION: 1. 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 2. Enlarged central lobe of the prostate gland protruding into the posterior urinary bladder wall is unchanged. Painless hematuria may be secondary to hemorrhagic prostatitis. Cystoscopy will be helpful. 3. Multiple sigmoid diverticulosis without diverticulitis. 4. 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 This is unchanged. 5. Small hiatal hernia. 6. Minimal intralobular septal thickening of the posterior lung base is unchanged. Electronically Signed: Jonas Guillen MD at 9:54 EDT ,
--- NOTE | 2023-03-15 08:43 | EDS_ITS ---
HPI History of Present Illness Chief Complaint: Complaint Narrative Narrative: 7-year-old male past medical history of kidney stones, presents with painless hematuria that he has had for the last 4 to 5 days. He presents with his son, stating that he has had gross hematuria for about 5 days. At times it will lighten up, but then becomes heavier. He does not take any blood thinners. He denies any fevers or chills, no other symptoms. His son states that he was called to the bathroom and they noticed a large amount of blood in and around the toilet. Patient denies any back pain. This is essentially painless hematuria. No testicular pain. [facility] Medical History Bronchiectasis without acute exacerbation Chronic nonallergic rhinitis Constipation Delirium Frequent falls History of COVID-19 History of edema History of kidney stones HTN (hypertension) Loss of hearing Non-smoker Prostate disease RML pneumonia Supraclavicular adenopathy Wears dentures Wears glasses Wears partial dentures Home Medications lisinopril 10 mg tablet 10 mg PO DAILY bp 08/19/19 [History Last Taken 02/02/21] potassium 99 mg tablet 99 mg PO DAILY 08/03/21 [History Last Taken Unknown] guaifenesin 1,200 mg tablet, extended release 12 hr (Mucinex) 1,200 mg PO Q12H #20 tabs 09/18/22 [Rx Last Taken Unknown] hydrochlorothiazide 12.5 mg capsule 12.5 mg PO DAILY 09/18/22 [History Last Taken Unknown] ciprofloxacin HCl 500 mg tablet (Cipro) 500 mg PO BID #20 tabs 03/15/23 [Rx Last Taken Unknown] Allergy/AdvReac Type Severity Reaction Status Date / Time Penicillins AdvReac Other-nervo Verified 02/04/23 18:54 us Family History Brother Heart disease Surgical History History of inguinal hernia repair, bilateral Hx of cystoscopy Social History Smoking Status: Never smoker second hand exposure: Yes alcohol intake: never substance use type: does not use ROS ROS ED ROS Narrative Constitutional: No fever, no chills. HEENT: No sore throat. No neck pain. No loss of vision. No rhinorrhea. Cardiovascular: No chest pain. No palpitations. No pedal edema. Respiratory: No cough, no shortness of breath. Abdominal: No abdominal pain. No nausea. No vomiting. Genitourinary: No dysuria. Painless hematuria for 5 days. Musculoskeletal: No myalgias. No arthralgias. Neurologic: No headaches. No dizziness. No lightheadedness. Skin: No rash. No change in color. Psychiatric: No depression. No anxiety. EXAM Physical Exam Narrative Exam Narrative: Afebrile. Vital signs noted. HEENT: Normocephalic. Atraumatic. PERRL, EOMI. Neck soft and supple. No point tenderness or step off. Cardiovascular: Regular rate and rhythm. No murmurs, rubs, or gallops appreciated. Respiratory: No tachypnea. Lungs clear to auscultation bilaterally. Gastrointestinal: Abdomen soft, nontender, with normoactive bowel sounds. No rebound or guarding. Neurological: Awake. Alert. Nonfocal, nonlateralizing. Skin: No rash. Normal color. No pallor. Musculoskeletal: No pedal edema. Full range of motion extremities. Const Vital Signs: 03/15/23 08:30 03/15/23 09:44 Temperature 97.2 F L Temperature Source Temporal Pulse Rate 67 Respiratory Rate 16 16 Blood Pressure 145/80 H Blood Pressure Mean 101 Pulse Ox 98 Oxygen Delivery Method Room Air MDM MDM MDM Narrative Medical decision making narrative: In the differential diagnosis is bladder tumor versus broken blood vessel versus hemorrhagic cystitis. Comprehensive work-up was pursued. They do feel that imaging is indicated to look for a bladder tumor or mass. Additionally lab work to check his kidney function and hemoglobin will be obtained. He was bolused normal saline 1 L intravenously. I reviewed his laboratory work, he has a normal white count 7.5, hemoglobin normal at 14.3, hematocrit 44.1, platelet count normal at 310. Review of his BMP shows sodium low at 129 with a chloride of 96, he was bolused normal saline 1 L intravenously, but it seems he has a chronic hyponatremia. BUN normal at 12 with creatinine normal at 1.08. Urinalysis obtained and while it shows occult blood and greater than 100 RBCs, there is 0-5 WBCs. No bacteria. I reviewed the CT of the abdomen and pelvis images and see no acute process or bladder mass. I reviewed the radiology report which does comment on unchanged anterior bladder diverticulum. Additionally, the central lobe of the prostate protrudes into the bladder and may be consistent with hemorrhagic prostatitis. Hence, to treat the prostatitis, he will be placed on ciprofloxacin and given his first dose here in the emergency department. In discussion with the patient and his son, they state that they have seen Dr. Bull in the past, and they will call the office on Friday, 2 days from now for an appointment for probable cystoscopy as recommended by radiology. I do not feel that he requires observation or admission or transfer to another institution at this time as he is still able to urinate. Additionally, they state that over the last few episodes of him urinating here in the emergency department, that it was more clear. They were told of the possibility of urinary retention. Return instructions to the emergency department were reviewed. [facility] condition. History & Record Review Discussion w/independent historian: Patient Additional record(s) reviewed:: Prior ED visit and Prior labs Lab Data Attestation: I reviewed the patient's lab results. Labs: Laboratory Results - last 24 hr 03/15/23 03/15/23 08:55 09:30 WBC 7.5 RBC 4.61 Hgb 14.3 Hct 44.1 MCV 95.7 H MCH 31.0 MCHC 32.4 RDW Std Deviation 51.5 H RDW Coeff of Gilberto 14.8 H Plt Count 310 MPV 10.0 Immature Gran % (Auto) 0.500 Neut % (Auto) 56.1 Lymph % (Auto) 25.4 Harnett % (Auto) 13.4 H Eos % (Auto) 4.1 Baso % (Auto) 0.5 Absolute Neuts (auto) 4.2 Absolute Lymphs (auto) 1.90 Nucleated RBC % 0 Sodium 129 L Potassium 4.0 Chloride 96 L Carbon Dioxide 30.0 Anion Gap 3 L BUN 12 Creatinine 1.08 Estim Creat Clear Calc 46.75 Est GFR (MDRD) Af Amer 84 Est GFR (MDRD) Non-Af 69 BUN/Creatinine Ratio 11.1 Glucose 93 Calcium 9.2 Urine Color Red Urine Clarity Cloudy Urine pH 6.5 Ur Specific Bernard 1.015 Urine Protein 100 H Urine Glucose (UA) Normal Urine Ketones Negative Urine Occult Blood 250 H Urine Nitrite Negative Urine Bilirubin Negative Urine Urobilinogen 1 H Ur Leukocyte Esterase 25 H Urine RBC > 100 SEEN Urine WBC 0-5 SEEN Ur Squamous Epith Cells 0 SEEN Urine Bacteria 0 SEEN Urine Mucus 0 SEEN Radiography Diagnostic Testing: Clinical Impression(s) from Imaging Studies Abdomen/Pelvis CT 03/15/23 08:42 IMPRESSION: 1. 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 2. Enlarged central lobe of the prostate gland protruding into the posterior urinary bladder wall is unchanged. Painless hematuria may be secondary to hemorrhagic prostatitis. Cystoscopy will be helpful. 3. Multiple sigmoid diverticulosis without diverticulitis. 4. 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 This is unchanged. 5. Small hiatal hernia. 6. Minimal intralobular septal thickening of the posterior lung base is unchanged. Electronically Signed: Jonas Guillen MD at 9:54 EDT , Discharge Plan Triage Chief Complaint: Complaint ED Provider: Jonas Crandall Dx/Rx/DC Orders Clinical Impression: Bladder diverticulum, Acute prostatitis with hematuria, Hematuria Instructions: ED Hematuria, ED Prostatitis Prescriptions: New ciprofloxacin HCl [Cipro] 500 mg tablet 500 mg PO BID Qty: 20 0RF No Action hydrochlorothiazide 12.5 mg capsule 12.5 mg PO DAILY Mucinex 1,200 mg tablet extended release 12hr 1,200 mg PO Q12H Qty: 20 0RF lisinopril 10 MG tablet 10 mg PO DAILY potassium 99 mg Tablet 99 mg PO DAILY Primary Care Provider: Abimael Lewis Referrals: Abimael Lewis MD [Primary Care Provider] - Ezequiel Bull MD [Med Staff - Active Staff] - 2 Days Activity Restrictions/Additional Instructions: Return with inability to urinate, increased bleeding, new or worsening symptoms. Disposition Disposition: Home, Self Care
[2023-03-15] MEDS: 0.9% Normal Saline (1000mL) 1,000 ML 999 ML IV (09:00)
[2023-03-15 09:16] LABS: Absolute Neutrophil Count 4.2 X10^3/uL (2.0-7.7); Basophil# 0.04 X10^3/uL; Basophil% 0.5 % (0-1); Eosinophil# 0.31 X10^3/uL; Eosinophils% 4.1 % (0-5); Hematocrit 44.1 % (40-54); Hemoglobin 14.3 g/dL (13.0-16.5); Lymphocyte % 25.4 % (19-41); Mean Corp Hgb Conc 32.4 g/dL (32-36); Mean Corpuscular Volume 95.7 fL (80-94); Monocyte% 13.4 % (0-10); NRBC Flagged by Analyzer 0 % (0-5); Neutrophil # 4.19 X10^3/uL (2.7-7.7); Neutrophil % 56.1 % (47-70); Platelet Count 310 K/mm3 (150-450); RBC Distribution Width CV 14.8 % (11.6-14.6); RBC Distribution Width SD 51.5 fl (35.1-43.9); Red Blood Count 4.61 M/mm3 (4.6-6.2); White Blood Count 7.5 K/mm3 (4.4-11.0)
[2023-03-15 09:34] LABS: Anion Gap 3 (5-15); BUN 12 mg/dL (7-18); BUN/Creat Ratio 11.1 RATIO (10-20); Calcium,Total 9.2 mg/dL (8.5-10.1); Chloride 96 mmol/L (98-107); Creatinine, Serum 1.08 mg/dL (0.70-1.30); EST Glomerular Filtration Rate 69 mL/min (>60); Est Glom Filt Rate - Afr Amer 84 mL/min (>60); Estimated Creatinine Clearance 46.75 ml/min; Glucose 93 mg/dL (74-106); Sodium Level 129 mmol/L (136-145)
[2023-03-15 09:35] LABS: Bacteria 0 SEEN /hpf (None Seen); Mucous, Urine 0 SEEN /hpf (<or=2+); Squamous Epithelial Cells - UA 0 SEEN /hpf (0-5)
[2023-03-15 09:44] VITALS: RESP 16
[2023-03-15 09:54] LABS: Color, Urine Red (Yellow); Glucose, Dipstick Normal (Normal); Leukocyte Esterase-Dipstick 25 /ul (Negative); Nitrite-Dipstick Negative (Negative); Occult Blood-Urine 250 /ul (Negative); Urine Bilirubin Dipstick Negative (Negative); Urine Clarity Cloudy (Clear)
[2023-03-15 10:03] LABS: Ketone-Dipstick Negative (Negative); Protein-Dipstick 100 mg/dl (Negative); Specific Gravity, Urine 1.015 (1.002-1.030); Urine Urobilinogen 1 mg/dl (Normal); Urine pH 6.5 (5.0 - 8.0)
[2023-03-15 10:05] LABS: Red Blood Cells-Urine > 100 SEEN /hpf (0-5); White Blood Cells 0-5 SEEN /hpf (0-5)
[2023-03-15 11:10] VITALS: BP 150/86; PULSE 76; RESP 16; O2SAT 96
[2023-03-15] MEDS: Ciprofloxacin 500 MG Tablet PO (11:11)
== END 2023-03-15 11:18 | disposition home or self-care (01) ==
PROVIDERS: Emergency Provider Emergency Medicine; PCP Family Medicine; Visit Provider Emergency Medicine
DX: N41.0 Acute prostatitis (principal); R31.0 Gross hematuria; N32.3 Diverticulum of bladder; I10 Essential (primary) hypertension; Z79.899 Other long term (current) drug therapy; Z87.442 Personal history of urinary calculi
CPT/HCPCS: 74176; 80048; 81001; 85025; 96360; 96361; 99283; J7030; A4216

== ENCOUNTER → 2023-09-23 | Outpatient (CLI) | payer MEDICARE, OTHER, SELFPAY ==
--- NOTE | 2023-09-23 12:49 | RAD_ITS ---
STUDY: X-RAY - RIGHT HAND, ATTENTION THUMB FINGER REASON FOR EXAM: Male, 87 years old. Mucous cyst at IP joint right thumb. TECHNIQUE: 3 views of the right thumb were obtained. COMPARISON: None. FINDINGS: Normal metacarpal head. Normal metacarpophalangeal joint. Intact proximal and distal phalanges of the thumb. There is mild degenerative arthrosis of the first CMC joint and first MCP joint with joint space narrowing and marginal osteophyte formation. There is moderate degenerative arthrosis of the interphalangeal joint of the thumb with joint space narrowing and subchondral cyst formation on both sides of the joint. There is no demonstrated fracture. 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 Electronically Signed: Isaías Caceres MD at 9:29 EDT ,
== END | disposition home or self-care (01) ==
LOC: MTRAD 12:49
PROVIDERS: PCP Family Medicine; Referring Provider Surgery; Visit Provider Surgery
DX: M67.441 Ganglion, right hand (principal); L60.8 Other nail disorders
CPT/HCPCS: 73140

== ENCOUNTER 2023-12-17 11:05 | Emergency (ER) | payer MEDICARE, OTHER, SELFPAY ==
[2023-12-17 11:06] VITALS: BP 168/83; PULSE 77; RESP 16; TEMP 35.8; O2SAT 93
[2023-12-17 11:28] VITALS: BMI 25.4
--- NOTE | 2023-12-17 11:33 | EKG12_ITS ---
Test Reason : GNERAL Blood Pressure : / mmHG Vent. Rate : 072 BPM Atrial Rate : 072 BPM P-R Int : 194 ms QRS Dur : 104 ms QT Int : 440 ms P-R-T Axes : 057 -25 082 degrees QTc Int : 481 ms Sinus rhythm with occasional Premature ventricular complexes Minimal voltage criteria for LVH, may be normal variant ( [place] product ) Septal infarct , age undetermined Abnormal ECG Confirmed by FÉLIX VILLAGOMEZ, SERENA ([id number]), editor in chief TOVA CHANG ([id number] on 12/24/2023 10:28:57 A M Referred By: Confirmed By:ANA HEARD MD
--- NOTE | 2023-12-17 11:34 | ED.VIS.GI ---
HPI HPI - GI History of Present Illness Chief Complaint: Nausea/Vomiting Narrative Narrative: 88-year-old male presenting with nausea, vomiting. The patient's son is here given the history as he reports his father is a poor informant. He states he has dementia and he never believes is anything wrong with him. He and his son were on the way back from hearing test in [place] when the patient became nauseous. His son stated he seems to have a lot of drooling and then vomited a couple of times. His son helped him into the ER because he was vomiting actively. Prior to this he was in good health. This patient's son states he does not usually have any chronic carsickness. He speculates as to whether the hearing test could have triggered something to make him nauseous. The patient himself has no complaints at this point. [facility] Medical History Dementia Poor historian Wears partial dentures Forgetfulness Depression Arthritis Prostate disease Restless legs Shortness of breath on exertion History of pain when walking History of stress test Acquired deformity of nail of finger Mucous cyst of digit of right hand Loss of hearing Wears dentures History of edema History of COVID-19 Frequent falls Wears glasses Non-smoker HTN (hypertension) Constipation Chronic nonallergic rhinitis Bronchiectasis without acute exacerbation Home Medications ?Medication ?Instructions ?Recorded ?Last Taken ?Type escitalopram oxalate 5 mg tablet 5 mg PO QDAY 09/23/23 Unknown History donepezil 10 mg tablet 10 mg PO DAILY MEMORY 10/17/23 Unknown History tamsulosin 0.4 mg capsule (Flomax) 0.4 mg PO DAILY 10/17/23 Unknown History ondansetron 4 mg disintegrating 4 mg PO Q8H PRN PRN Nausea #10 tabs 12/17/23 Unknown Rx tablet ondansetron 4 mg disintegrating 4 mg PO Q8H PRN PRN Nausea #10 tabs 12/17/23 Unknown Rx tablet ondansetron 4 mg disintegrating 4 mg PO Q8H PRN nausea and 12/17/23 Unknown Rx tablet vomiting #14 tabs Allergy/AdvReac Type Severity Reaction Status Date / Time Penicillins AdvReac Other-nervo Verified 12/17/23 11:06 Family History Brother Heart disease Other Family history of skin cancer Surgical History Hx of transurethral resection of prostate Hx of cystoscopy History of inguinal hernia repair, bilateral Social History Smoking Status: Never smoker second hand exposure: Yes alcohol intake: never substance use type: does not use additional social history: pt denies vaping, denies marijuana use, denies edibles, denies aspirin use, denies ibuprofen use. ROS ROS ED Constitutional Constitutional ED: Denies chills, fever(s) or sweats Eyes Eyes: Denies blurry vision or change in vision ENT ENT ED: Denies ear pain or sore throat Cardiovascular Cardiovascular: Denies chest pain, palpitations or racing heartbeat Respiratory/Chest Respiratory/Chest: Denies cough, dyspnea or sputum Gastrointestinal Gastrointestinal: Reports nausea and vomiting; Denies abdominal pain, constipation or diarrhea Genitourinary Genitourinary ED: Denies dysuria, hematuria or urinary frequency Musculoskeletal Musculoskeletal: Denies arthralgias, myalgias or neck pain Integumentary Denies abscess, Abrasions or rash Neurologic Neurologic: Denies headache(s), paresthesias or weakness Psychiatric Psychiatric: Denies anxiety, depression, suicidal ideation or suicidal thoughts Endocrine Endocrinology: Denies polydipsia or polyuria EXAM Physical Exam Const Vital Signs: 12/17/23 11:06 12/17/23 13:27 Temperature 96.5 F L Temperature Source Temporal Pulse Rate 77 78 Respiratory Rate 16 16 Blood Pressure 168/83 H Blood Pressure Mean 111 Pulse Ox 93 98 Oxygen Delivery Method Room Air Positive well nourished General Appearance ED: NAD HEENT Reports moist mucous membranes normocephalic and atraumatic Eyes PERRL and EOMs intact bilaterally Neck no lymphadenopathy, supple and no JVD Resp normal respiratory effort and clear to auscultation bilaterally Auscultation: Negative for rales, rhonchi or wheezes Cardio regular rate and regular rhythm GI non-tender, non-distended and no masses Neuro CN's II-XII intact bilaterally, moves all extremities and no sensory deficits noted Sensorium / Orientation: alert Motor Exam: general weakness Psych mental status grossly normal Skin no wounds MDM MDM MDM Narrative Medical decision making narrative: Patient presenting with nausea/vomiting. He is a poor informant due to dementia. Son's concern this could be something cardiac. Differential includes dysrhythmia, motion sickness, dehydration, anemia, electrolyte abnormalities, ACS, pneumonia. CBC will be obtained to assess white blood cell count, hemoglobin, platelets. BMP to assess renal function, electrolytes, glucose. High-sensitivity troponin and EKG to assess for ischemia/dysrhythmia. Chest x-ray to rule out pneumonia. Patient was given Zofran and IV fluids. CBC shows normal white blood cell count of 7.2. Hemoglobin 16.5. Platelets normal at 270. Renal function and electrolytes within normal limits. Total bilirubin elevated at 1.3 but nonspecific. He does not have any abdominal pain. Lipase is normal. Urinalysis negative for infection. Chest x-ray interpreted by myself shows no acute cardiopulmonary process. High-sensitivity troponin 25. EKG sinus rhythm at 72 bpm with occasional PVCs. On reevaluation the patient is feeling improved. He has not vomited. He is able to ambulate to the restroom. I feel he stable for discharge. He is discharged in the care of his son. Impression: 1. Nausea/vomiting Lab Data Attestation: I reviewed the patient's lab results. Labs: Laboratory Results - last 24 hr 12/17/23 12/17/23 11:40 13:20 WBC 7.2 RBC 5.28 Hgb 16.5 Hct 49.8 MCV 94.3 H MCH 31.3 MCHC 33.1 RDW Std Deviation 53.9 H RDW Coeff of Gilberto 15.6 H Plt Count 270 MPV 10.3 Immature Gran % (Auto) 0.300 Neut % (Auto) 65.9 Lymph % (Auto) 22.7 Door % (Auto) 8.3 Eos % (Auto) 2.0 Baso % (Auto) 0.8 Absolute Neuts (auto) 4.7 Absolute Lymphs (auto) 1.62 Nucleated RBC % 0 Sodium 133 L Potassium 3.7 Chloride 98 Carbon Dioxide 27.0 Anion Gap 8 BUN 19 H Creatinine 1.30 Estim Creat Clear Calc 38.13 Est GFR (MDRD) Af Amer 67 Est GFR (MDRD) Non-Af 56 L BUN/Creatinine Ratio 14.6 Glucose 118 H Calcium 9.5 Total Bilirubin 1.30 H AST 22 ALT 14 L Alkaline Phosphatase 111 Troponin I High Sens 25 Total Protein 8.1 Albumin 4.2 Globulin 3.9 Albumin/Globulin Ratio 1.1 Lipase 60 Urine Color Straw Urine Clarity Clear Urine pH 7.0 Ur Specific [place] 1.005 Urine Protein 15 H Urine Glucose (UA) Normal Urine Ketones Negative Urine Occult Blood Negative Urine Nitrite Negative Urine Bilirubin Negative Urine Urobilinogen Normal Ur Leukocyte Esterase Negative Urine RBC 0 SEEN Urine WBC 0 SEEN Ur Squamous Epith Cells 0 SEEN Urine Bacteria 0 SEEN Urine Mucus 0 SEEN Radiography Diagnostic Testing: Clinical Impression(s) from Imaging Studies Chest X-Ray 12/17/23 12:50 IMPRESSION: Mild degree of increased interstitial markings more prominent at the lung bases. This most likely is chronic in nature although mild degree of CHF cannot be excluded. Electronically Signed: Kei Hemphill MD at 13:06 EDT , Discharge Plan Triage Chief Complaint: Nausea/Vomiting ED Provider: Alex Ashley Dx/Rx/DC Orders Instructions: ED Vomiting (Adult) Prescriptions: New ondansetron 4 mg tablet,disintegrating 4 mg PO Q8H PRN PRN (Reason: Nausea) Qty: 10 0RF ondansetron 4 mg tablet,disintegrating 4 mg PO Q8H PRN PRN (Reason: Nausea) Qty: 10 0RF ondansetron 4 mg tablet,disintegrating 4 mg PO Q8H PRN (Reason: nausea and vomiting) Qty: 14 0RF No Action escitalopram oxalate 5 mg tablet 5 mg PO QDAY donepezil 10 mg tablet 10 mg PO DAILY tamsulosin [Flomax] 0.4 mg capsule 0.4 mg PO DAILY Primary Care Provider: Abimael Lewis Referrals: Abimael Lewis MD [Primary Care Provider] - Print Language: Singaporean Disposition Disposition: Home, Self Care
[2023-12-17] MEDS: Ondansetron 4 MG/2 ML Vial IV (11:35)
[2023-12-17] MEDS: 0.9% Normal Saline (1000mL) 1,000 ML 999 ML IV (11:36)
[2023-12-17 11:47] LABS: Absolute Lymphocyte Count 1.62 X10^3/uL (0.83-4.51); Absolute Neutrophil Count 4.7 X10^3/uL (2.0-7.7); Basophil# 0.06 X10^3/uL; Basophil% 0.8 % (0-1); Eosinophil# 0.14 X10^3/uL; Hematocrit 49.8 % (40-54); Hemoglobin 16.5 g/dL (13.0-16.5); Lymphocyte # 1.62 X10^3/ul (0.83-4.51); Lymphocyte % 22.7 % (19-41); Mean Corp Hgb Conc 33.1 g/dL (32-36); Mean Corpuscular Hgb 31.3 pg (27.0-32.0); Mean Corpuscular Volume 94.3 fL (80-94); Mean Platelet Vol. 10.3 fl (6.2-12.0); Monocyte# 0.59 X10^3/uL; Monocyte% 8.3 % (0-10); NRBC Flagged by Analyzer 0 % (0-5); Neutrophil # 4.72 X10^3/uL (2.7-7.7); Neutrophil % 65.9 % (47-70); Platelet Count 270 K/mm3 (150-450); RBC Distribution Width CV 15.6 % (11.6-14.6); RBC Distribution Width SD 53.9 fl (35.1-43.9); Red Blood Count 5.28 M/mm3 (4.6-6.2); White Blood Count 7.2 K/mm3 (4.4-11.0)
[2023-12-17 12:11] LABS: ALB/GLOB Ratio 1.1 RATIO (0.9-2.4); AST(SGOT) 22 U/L (15-37); Alanine Aminotransfer ALT/SGPT 14 U/L (16-61); Albumin, Serum 4.2 g/dL (3.2-5.0); Alkaline Phosphatase 111 U/L (45-117); Anion Gap 8 (5-15); BUN 19 mg/dL (7-18); BUN/Creat Ratio 14.6 RATIO (10-20); Calcium,Total 9.5 mg/dL (8.5-10.1); Chloride 98 mmol/L (98-107); EST Glomerular Filtration Rate 56 mL/min (>60); Est Glom Filt Rate - Afr Amer 67 mL/min (>60); Estimated Creatinine Clearance 38.13 ml/min; Globulin 3.9 g/dL (2.2-4.2); Glucose 118 mg/dL (74-106); Lipase 60 U/L (13-75); Potassium 3.7 mmol/L (3.5-5.1); Protein, Total 8.1 g/dL (6.4-8.2); Sodium Level 133 mmol/L (136-145); Troponin-I HS 25 pg/mL (3.0-78.0)
--- NOTE | 2023-12-17 12:50 | RAD_ITS ---
STUDY: X-RAY CHEST REASON FOR EXAM: Male, 88 years old. Weakness TECHNIQUE: Single AP portable view of the chest. COMPARISON: Comparison is made with prior study dated September 18, 2022. FINDINGS: Mild degree of increased interstitial markings in both lungs slightly worse at the lung bases suggestive of a linear scarring. Mild degree of CHF cannot be excluded. There is no demonstrated pleural abnormality. There is borderline cardiomegaly. Normal mediastinum and bettye. Normal visualized pulmonary arteries. Normal visualized aortic arch and descending thoracic aorta. There are diffuse degenerative changes of the visualized thoracic spine. There is degenerative osteoarthritis of the bilateral shoulders. There is no demonstrated abnormality of the visualized soft tissue structures of the upper abdomen. RAD/Chest 1 View IMPRESSION: Mild degree of increased interstitial markings more prominent at the lung bases. This most likely is chronic in nature although mild degree of CHF cannot be excluded. Electronically Signed: Kei Hemphill MD at 13:06 EDT ,
[2023-12-17 13:27] VITALS: PULSE 78; RESP 16; O2SAT 98
[2023-12-17 13:27] LABS: Bacteria 0 SEEN /hpf (None Seen); Mucous, Urine 0 SEEN /hpf (<or=2+); Red Blood Cells-Urine 0 SEEN /hpf (0-5); Squamous Epithelial Cells - UA 0 SEEN /hpf (0-5); White Blood Cells 0 SEEN /hpf (0-5)
[2023-12-17 13:34] LABS: Color, Urine Straw (Yellow); Glucose, Dipstick Normal (Normal); Ketone-Dipstick Negative (Negative); Leukocyte Esterase-Dipstick Negative /ul (Negative); Nitrite-Dipstick Negative (Negative); Occult Blood-Urine Negative /ul (Negative); Protein-Dipstick 15 mg/dl (Negative); Specific Gravity, Urine 1.005 (1.002-1.030); Urine Bilirubin Dipstick Negative (Negative); Urine Clarity Clear (Clear); Urine Urobilinogen Normal (Normal)
[2023-12-17 14:23] VITALS: BP 157/97; PULSE 88; RESP 16; TEMP 36.3; O2SAT 93
== END 2023-12-17 14:24 | disposition home or self-care (01) ==
PROVIDERS: Emergency Provider Student in an Organized Health Care Education/Training Program; PCP Family Medicine; Visit Provider Student in an Organized Health Care Education/Training Program
DX: R11.2 Nausea with vomiting, unspecified (principal); F03.90 Unspecified dementia, unspecified severity, without behavioral disturbance, psychotic disturbance, mood disturbance, and anxiety; I49.3 Ventricular premature depolarization; I10 Essential (primary) hypertension; Z79.899 Other long term (current) drug therapy
CPT/HCPCS: 71045; 80053; 81001; 83690; 84484; 85025; 93005; 96361; 96374; 99284; J7030; A4216; J2405

== ENCOUNTER 2024-05-02 20:55 | Inpatient (IN) | payer MEDICARE, OTHER, SELFPAY ==
[2024-05-02] VITALS (7 sets, daily range): BP systolic 124–152; BP diastolic 76–90; PULSE 94–104; RESP 16–19; TEMP 36.3–37.6; O2SAT 94–98; BMI 25.9; BMI 25.5
[2024-05-02 21:32] LABS: Absolute Lymphocyte Count 0.89 X10^3/uL (0.83-4.51); Basophil# 0.06 X10^3/uL; Basophil% 0.5 % (0-1); Eosinophil# 0.13 X10^3/uL; Eosinophils% 1.2 % (0-5); Hematocrit 47.2 % (40-54); Hemoglobin 15.6 g/dL (13.0-16.5); Lymphocyte # 0.89 X10^3/ul (0.83-4.51); Lymphocyte % 8.2 % (19-41); Mean Corp Hgb Conc 33.1 g/dL (32-36); Mean Corpuscular Hgb 31.1 pg (27.0-32.0); Monocyte# 0.77 X10^3/uL; Monocyte% 7.1 % (0-10); NRBC Flagged by Analyzer 0 % (0-5); Neutrophil # 9.01 X10^3/uL (2.7-7.7); Neutrophil % 82.5 % (47-70); Platelet Count 325 K/mm3 (150-450); RBC Distribution Width CV 15.9 % (11.6-14.6); Red Blood Count 5.02 M/mm3 (4.6-6.2); White Blood Count 10.9 K/mm3 (4.4-11.0)
[2024-05-02 21:48] LABS: ALB/GLOB Ratio 0.9 RATIO (0.9-2.4); AST(SGOT) 35 U/L (15-37); Alanine Aminotransfer ALT/SGPT 13 U/L (16-61); Albumin, Serum 3.7 g/dL (3.2-5.0); Alkaline Phosphatase 124 U/L (45-117); Anion Gap 8 (5-15); BUN 19 mg/dL (7-18); BUN/Creat Ratio 12.3 RATIO (10-20); Calcium,Total 9.2 mg/dL (8.5-10.1); Chloride 100 mmol/L (98-107); Creatinine, Serum 1.54 mg/dL (0.70-1.30); EST Glomerular Filtration Rate 46 mL/min (>60); Est Glom Filt Rate - Afr Amer 55 mL/min (>60); Estimated Creatinine Clearance 32.19 ml/min; Globulin 4.2 g/dL (2.2-4.2); Glucose 146 mg/dL (74-106); Potassium 4.1 mmol/L (3.5-5.1); Protein, Total 7.9 g/dL (6.4-8.2); Sodium Level 136 mmol/L (136-145)
[2024-05-02 22:20] LABS: Lactic Acid 1.9 mmol/L (0.4-1.9)
[2024-05-02 22:32] LABS: Mucous, Urine 0 SEEN /hpf (<or=2+); Squamous Epithelial Cells - UA 0 SEEN /hpf (0-5)
[2024-05-02 22:37] LABS: Color, Urine Yellow (Yellow); Glucose, Dipstick Normal (Normal); Ketone-Dipstick Negative (Negative); Leukocyte Esterase-Dipstick Negative /ul (Negative); Nitrite-Dipstick Negative (Negative); Occult Blood-Urine 50 /ul (Negative); Protein-Dipstick 30 mg/dl (Negative); Specific Gravity, Urine 1.015 (1.002-1.030); Urine Bilirubin Dipstick Negative (Negative); Urine Clarity Clear (Clear); Urine Urobilinogen 1 mg/dl (Normal)
[2024-05-02 23:08] LABS: Bacteria RARE /hpf (None Seen); Red Blood Cells-Urine 0-5 SEEN /hpf (0-5); White Blood Cells 0-5 SEEN /hpf (0-5)
[2024-05-02] MEDS: 0.9% Normal Saline (1000mL) 1,000 ML 70 ML IV (23:27)
[2024-05-03] MEDS: dexAMETHasone 10 MG/ML Vial 6 MG IV ×2 (00:56→10:32)
[2024-05-03] MEDS: Famotidine 20 MG Tablet 10 MG PO ×3 (00:56→22:32)
[2024-05-03] MEDS: Doxycycline 100 MG in Dextrose 5%-Water (250mL Bag) 250 ML 250 MG IV ×2 (00:56→10:32)
[2024-05-03 01:11] VITALS: PULSE 102
[2024-05-03 05:23] VITALS: BMI 25.4
[2024-05-03 07:14] LABS: Absolute Lymphocyte Count 0.44 X10^3/uL (0.83-4.51); Absolute Neutrophil Count 7.7 X10^3/uL (2.0-7.7); Basophil# 0.03 X10^3/uL; Basophil% 0.4 % (0-1); Hemoglobin 15.9 g/dL (13.0-16.5); Lymphocyte # 0.44 X10^3/ul (0.83-4.51); Lymphocyte % 5.2 % (19-41); Mean Corp Hgb Conc 33.1 g/dL (32-36); Mean Corpuscular Hgb 30.6 pg (27.0-32.0); Mean Corpuscular Volume 92.5 fL (80-94); Monocyte# 0.17 X10^3/uL; NRBC Flagged by Analyzer 0 % (0-5); Neutrophil # 7.74 X10^3/uL (2.7-7.7); POSITIVE DIFFERENTIAL YES; Platelet Count 315 K/mm3 (150-450); RBC Distribution Width CV 15.4 % (11.6-14.6); Red Blood Count 5.19 M/mm3 (4.6-6.2); White Blood Count 8.4 K/mm3 (4.4-11.0)
[2024-05-03 07:46] LABS: ALB/GLOB Ratio 0.9 RATIO (0.9-2.4); AST(SGOT) 28 U/L (15-37); Alanine Aminotransfer ALT/SGPT 14 U/L (16-61); Albumin, Serum 3.5 g/dL (3.2-5.0); Alkaline Phosphatase 121 U/L (45-117); Anion Gap 7 (5-15); BUN 15 mg/dL (7-18); BUN/Creat Ratio 12.2 RATIO (10-20); Calcium,Total 9.1 mg/dL (8.5-10.1); Chloride 102 mmol/L (98-107); Creatinine, Serum 1.23 mg/dL (0.70-1.30); EST Glomerular Filtration Rate 59 mL/min (>60); Est Glom Filt Rate - Afr Amer 72 mL/min (>60); Globulin 4.1 g/dL (2.2-4.2); Glucose 169 mg/dL (74-106); Phosphorus 2.2 mg/dL (2.5-4.9); Potassium 3.6 mmol/L (3.5-5.1); Protein, Total 7.6 g/dL (6.4-8.2); Sodium Level 132 mmol/L (136-145)
[2024-05-03 08:06] LABS: Vitamin B12 579 pg/mL (211-911)
[2024-05-03 08:08] VITALS: O2SAT 95
[2024-05-03 09:59] VITALS: BP 127/77; PULSE 88; RESP 16; TEMP 36.3; O2SAT 95
[2024-05-03] MEDS: Ascorbic Acid 500 MG Tablet 1000 MG PO ×2 (10:29→17:19)
[2024-05-03] MEDS: Donepezil HCl 10 MG Tablet PO (10:29)
[2024-05-03] MEDS: Zinc Sulfate 50 mg zinc (220 mg) ORAL capsule PO (10:30)
[2024-05-03] MEDS: Escitalopram Oxalate 10 MG Tablet 5 MG PO (10:31)
[2024-05-03] MEDS: Lactobacillis Acidophilus 1 CAP PO ×4 (10:32→22:32)
[2024-05-03] MEDS: Enoxaparin 40 MG/0.4 ML Syringe SC (10:33)
[2024-05-03] MEDS: Cholecalciferol (Vit D3) 125 MCG CAPSULE (5,000 UNITS) PO (10:36)
[2024-05-03 15:36] VITALS: BP 148/80; PULSE 90; RESP 16; TEMP 36.6; O2SAT 97
[2024-05-03 22:30] VITALS: BP 136/82; PULSE 63; RESP 18; TEMP 36.4; O2SAT 96
[2024-05-03] MEDS: MELATONIN 10 MG TABLET 5 MG PO (22:32)
[2024-05-03] MEDS: Doxycycline 100 MG CAPSULE PO (22:32)
[2024-05-04 03:01] VITALS: BP 135/76; PULSE 80; RESP 16; TEMP 36.3; O2SAT 98
[2024-05-04 06:00] VITALS: BMI 25.5
[2024-05-04 07:17] LABS: Absolute Lymphocyte Count 1.72 X10^3/uL (0.83-4.51); Absolute Neutrophil Count 9.3 X10^3/uL (2.0-7.7); Basophil# 0.03 X10^3/uL; Basophil% 0.2 % (0-1); Eosinophil# 0.02 X10^3/uL; Eosinophils% 0.2 % (0-5); Hematocrit 45.5 % (40-54); Hemoglobin 15.6 g/dL (13.0-16.5); Lymphocyte # 1.72 X10^3/ul (0.83-4.51); Lymphocyte % 13.7 % (19-41); Mean Corp Hgb Conc 34.3 g/dL (32-36); Mean Corpuscular Hgb 31.5 pg (27.0-32.0); Mean Corpuscular Volume 91.7 fL (80-94); Mean Platelet Vol. 10.2 fl (6.2-12.0); Monocyte# 1.35 X10^3/uL; Monocyte% 10.8 % (0-10); NRBC Flagged by Analyzer 0 % (0-5); Neutrophil # 9.33 X10^3/uL (2.7-7.7); Neutrophil % 74.5 % (47-70); Platelet Count 327 K/mm3 (150-450); RBC Distribution Width CV 15.7 % (11.6-14.6); RBC Distribution Width SD 52.7 fl (35.1-43.9); Red Blood Count 4.96 M/mm3 (4.6-6.2); White Blood Count 12.5 K/mm3 (4.4-11.0)
[2024-05-04 07:48] LABS: Anion Gap 8 (5-15); BUN 21 mg/dL (7-18); BUN/Creat Ratio 17.2 RATIO (10-20); Calcium,Total 9.4 mg/dL (8.5-10.1); Chloride 102 mmol/L (98-107); Creatinine, Serum 1.22 mg/dL (0.70-1.30); EST Glomerular Filtration Rate 60 mL/min (>60); Est Glom Filt Rate - Afr Amer 72 mL/min (>60); Estimated Creatinine Clearance 39.22 ml/min; Glucose 108 mg/dL (74-106); Potassium 3.7 mmol/L (3.5-5.1); Sodium Level 134 mmol/L (136-145)
[2024-05-04 10:23] VITALS: BP 142/79; PULSE 81; RESP 16; TEMP 36.8; O2SAT 98
[2024-05-04] MEDS: Famotidine 20 MG Tablet 10 MG PO ×2 (10:26→22:43)
[2024-05-04] MEDS: Donepezil HCl 10 MG Tablet PO (10:27)
[2024-05-04] MEDS: Escitalopram Oxalate 10 MG Tablet 5 MG PO (10:27)
[2024-05-04] MEDS: Lactobacillis Acidophilus 1 CAP PO ×4 (10:27→22:43)
[2024-05-04] MEDS: Ascorbic Acid 500 MG Tablet 1000 MG PO ×2 (10:27→17:08)
[2024-05-04] MEDS: Enoxaparin 40 MG/0.4 ML Syringe SC (10:28)
[2024-05-04] MEDS: Cholecalciferol (Vit D3) 125 MCG CAPSULE (5,000 UNITS) PO (10:28)
[2024-05-04] MEDS: Doxycycline 100 MG CAPSULE PO ×2 (10:41→22:43)
[2024-05-04] MEDS: dexAMETHasone 4 MG Tablet 2 MG PO (10:41)
[2024-05-04 14:38] VITALS: BP 153/81; PULSE 77; RESP 16; TEMP 36.4; O2SAT 98
[2024-05-04 22:38] VITALS: BP 143/76; PULSE 68; RESP 18; TEMP 36.6; O2SAT 98
[2024-05-04] MEDS: MELATONIN 10 MG TABLET 5 MG PO (22:43)
[2024-05-05 00:01] VITALS: BMI 25.4
[2024-05-05 05:02] VITALS: BP 136/77; PULSE 76; RESP 18; TEMP 36.4; O2SAT 95
[2024-05-05 07:42] LABS: Absolute Lymphocyte Count 1.39 X10^3/uL (0.83-4.51); Absolute Neutrophil Count 6.8 X10^3/uL (2.0-7.7); Basophil# 0.03 X10^3/uL; Basophil% 0.3 % (0-1); Eosinophil# 0.07 X10^3/uL; Eosinophils% 0.8 % (0-5); Hematocrit 47.5 % (40-54); Hemoglobin 15.7 g/dL (13.0-16.5); Lymphocyte # 1.39 X10^3/ul (0.83-4.51); Lymphocyte % 15.4 % (19-41); Mean Corp Hgb Conc 33.1 g/dL (32-36); Mean Corpuscular Hgb 30.4 pg (27.0-32.0); Mean Corpuscular Volume 91.9 fL (80-94); Mean Platelet Vol. 10.4 fl (6.2-12.0); Monocyte# 0.74 X10^3/uL; Monocyte% 8.2 % (0-10); NRBC Flagged by Analyzer 0 % (0-5); Neutrophil # 6.77 X10^3/uL (2.7-7.7); Neutrophil % 74.9 % (47-70); Platelet Count 326 K/mm3 (150-450); RBC Distribution Width CV 15.9 % (11.6-14.6); RBC Distribution Width SD 53.6 fl (35.1-43.9); Red Blood Count 5.17 M/mm3 (4.6-6.2)
[2024-05-05] MEDS: Lactobacillis Acidophilus 1 CAP PO ×4 (07:45→20:05)
[2024-05-05] MEDS: Enoxaparin 40 MG/0.4 ML Syringe SC (07:45)
[2024-05-05] MEDS: dexAMETHasone 4 MG Tablet 2 MG PO (07:57)
[2024-05-05] MEDS: Famotidine 20 MG Tablet 10 MG PO ×2 (07:58→20:06)
[2024-05-05] MEDS: Ascorbic Acid 500 MG Tablet 1000 MG PO ×2 (07:58→17:29)
[2024-05-05] MEDS: Doxycycline 100 MG CAPSULE PO ×2 (07:58→20:06)
[2024-05-05] MEDS: Donepezil HCl 10 MG Tablet PO (07:59)
[2024-05-05] MEDS: Escitalopram Oxalate 10 MG Tablet 5 MG PO (07:59)
[2024-05-05 08:11] VITALS: BP 136/77; PULSE 72; RESP 12; TEMP 36.5; O2SAT 98
[2024-05-05 08:41] LABS: Anion Gap 8 (5-15); BUN 28 mg/dL (7-18); BUN/Creat Ratio 21.5 RATIO (10-20); Calcium,Total 9.3 mg/dL (8.5-10.1); Chloride 99 mmol/L (98-107); EST Glomerular Filtration Rate 56 mL/min (>60); Est Glom Filt Rate - Afr Amer 67 mL/min (>60); Estimated Creatinine Clearance 36.81 ml/min; Glucose 91 mg/dL (74-106); Potassium 3.8 mmol/L (3.5-5.1); Sodium Level 132 mmol/L (136-145)
[2024-05-05] MEDS: Cholecalciferol (Vit D3) 125 MCG CAPSULE (5,000 UNITS) PO (10:58)
[2024-05-05 14:00] VITALS: BP 131/80; PULSE 73; RESP 14; TEMP 36.4; O2SAT 94
[2024-05-05] MEDS: QUEtiapine 25 MG Tablet PO (17:29)
[2024-05-05 20:00] VITALS: BP 120/68; PULSE 64; RESP 14; TEMP 36.6; O2SAT 97
[2024-05-05] MEDS: MELATONIN 10 MG TABLET 5 MG PO (20:06)
[2024-05-06 02:00] VITALS: BP 128/68; PULSE 68; RESP 16; TEMP 36.6; O2SAT 98
[2024-05-06 05:25] VITALS: BMI 25.0
[2024-05-06 09:59] VITALS: BP 132/69; PULSE 75; RESP 18; TEMP 36.5; O2SAT 100
[2024-05-06] MEDS: dexAMETHasone 4 MG Tablet 6 MG PO (10:00)
[2024-05-06] MEDS: Famotidine 20 MG Tablet 10 MG PO ×2 (10:01→20:36)
[2024-05-06] MEDS: Cholecalciferol (Vit D3) 125 MCG CAPSULE (5,000 UNITS) PO (10:01)
[2024-05-06] MEDS: Escitalopram Oxalate 10 MG Tablet 5 MG PO (10:01)
[2024-05-06] MEDS: Ascorbic Acid 500 MG Tablet 1000 MG PO ×2 (10:02→17:19)
[2024-05-06] MEDS: Donepezil HCl 10 MG Tablet PO (10:02)
[2024-05-06] MEDS: Enoxaparin 40 MG/0.4 ML Syringe SC (10:02)
[2024-05-06] MEDS: Doxycycline 100 MG CAPSULE PO ×2 (10:02→20:35)
[2024-05-06] MEDS: Lactobacillis Acidophilus 1 CAP PO ×3 (12:35→20:35)
[2024-05-06] MEDS: QUEtiapine 25 MG Tablet PO (17:18)
[2024-05-06 17:21] VITALS: BP 132/73; PULSE 64; RESP 18; TEMP 37.2; O2SAT 100
[2024-05-06] MEDS: MELATONIN 10 MG TABLET 5 MG PO (20:35)
[2024-05-06 20:50] VITALS: BP 137/83; PULSE 82; RESP 16; TEMP 36.3; O2SAT 97
[2024-05-06] MEDS: Menthol/Lanolin/Calamine/Znox 113 GM Tube 1 APPLIC TOPICAL (23:34)
[2024-05-06 23:42] VITALS: BP 131/80; PULSE 70; RESP 16; TEMP 36.3; O2SAT 95
[2024-05-07 06:00] VITALS: BMI 25.0
[2024-05-07 06:26] VITALS: BP 144/86; PULSE 81; RESP 16; TEMP 36.3; O2SAT 97
[2024-05-07] MEDS: dexAMETHasone 4 MG Tablet 6 MG PO (10:02)
[2024-05-07] MEDS: Escitalopram Oxalate 10 MG Tablet 5 MG PO (10:02)
[2024-05-07] MEDS: Enoxaparin 40 MG/0.4 ML Syringe SC (10:02)
[2024-05-07] MEDS: Lactobacillis Acidophilus 1 CAP PO (10:03)
[2024-05-07] MEDS: Doxycycline 100 MG CAPSULE PO (10:03)
[2024-05-07] MEDS: Donepezil HCl 10 MG Tablet PO (10:03)
[2024-05-07] MEDS: Famotidine 20 MG Tablet 10 MG PO (10:03)
[2024-05-07] MEDS: Cholecalciferol (Vit D3) 125 MCG CAPSULE (5,000 UNITS) PO (10:04)
[2024-05-07] MEDS: Ascorbic Acid 500 MG Tablet 1000 MG PO (10:13)
[2024-05-07 10:48] VITALS: BP 128/74; PULSE 72; RESP 18; TEMP 36.4
[2024-05-07 10:50] VITALS: RESP 18
== END 2024-05-07 13:52 | disposition skilled nursing facility (03) | DRG 178 ==
LOC: ED 22:27 → MS3 22:48
PROVIDERS: Admitting Provider Internal Medicine; Emergency Provider Emergency Medicine; PCP Family Medicine; Visit Provider Family Medicine
DX: U07.1 COVID-19 (principal); F05 Delirium due to known physiological condition; N13.8 Other obstructive and reflux uropathy; I10 Essential (primary) hypertension; F32.A Depression, unspecified; M19.90 Unspecified osteoarthritis, unspecified site; J20.8 Acute bronchitis due to other specified organisms; F41.9 Anxiety disorder, unspecified; R53.1 Weakness; R53.81 Other malaise; N40.1 Benign prostatic hyperplasia with lower urinary tract symptoms; Z79.52 Long term (current) use of systemic steroids; R29.6 Repeated falls
CPT/HCPCS: 36415; 70450; 71045; 80048; 80053; 81001; 82607; 82746; 83605; 83735; 84100; 84443; 85025; 87040; 87631; 93005; 94668; 97110; 97116; 97162; 97166; 97530; 97535; 99252; 99285; J7030; A4216; G0463

== ENCOUNTER 2024-05-07 14:07 | Inpatient (IN) | payer MEDICARE, OTHER, SELFPAY ==
[2024-05-07 14:36] VITALS: BP 129/63; PULSE 76; RESP 18; TEMP 36.4; O2SAT 96
[2024-05-07 15:25] VITALS: BMI 24.7
[2024-05-07] MEDS: QUEtiapine 25 MG Tablet PO (22:09)
[2024-05-07] MEDS: Senna/Docusate Sodium 1 Tablet 2 TABLET PO (22:09)
[2024-05-08 05:00] VITALS: BP 140/70; PULSE 67; TEMP 35.5; O2SAT 94
[2024-05-08] MEDS: Enoxaparin 40 MG/0.4 ML Syringe SC (06:15)
[2024-05-08 07:23] LABS: Absolute Lymphocyte Count 2.01 X10^3/uL (0.83-4.51); Absolute Neutrophil Count 5.8 X10^3/uL (2.0-7.7); Basophil# 0.02 X10^3/uL; Basophil% 0.2 % (0-1); Eosinophil# 0.09 X10^3/uL; Eosinophils% 1.1 % (0-5); Hematocrit 46.4 % (40-54); Hemoglobin 15.4 g/dL (13.0-16.5); Lymphocyte # 2.01 X10^3/ul (0.83-4.51); Lymphocyte % 23.8 % (19-41); Mean Corp Hgb Conc 33.2 g/dL (32-36); Mean Corpuscular Hgb 30.7 pg (27.0-32.0); Mean Corpuscular Volume 92.4 fL (80-94); Mean Platelet Vol. 10.5 fl (6.2-12.0); Monocyte# 0.47 X10^3/uL; Monocyte% 5.6 % (0-10); NRBC Flagged by Analyzer 0 % (0-5); Neutrophil # 5.79 X10^3/uL (2.7-7.7); Neutrophil % 68.4 % (47-70); Platelet Count 318 K/mm3 (150-450); RBC Distribution Width CV 15.9 % (11.6-14.6); RBC Distribution Width SD 53.6 fl (35.1-43.9); Red Blood Count 5.02 M/mm3 (4.6-6.2); White Blood Count 8.5 K/mm3 (4.4-11.0)
[2024-05-08 07:59] LABS: Anion Gap 10 (5-15); BUN 27 mg/dL (7-18); BUN/Creat Ratio 22.9 RATIO (10-20); Chloride 99 mmol/L (98-107); Creatinine, Serum 1.18 mg/dL (0.70-1.30); EST Glomerular Filtration Rate 62 mL/min (>60); Est Glom Filt Rate - Afr Amer 75 mL/min (>60); Estimated Creatinine Clearance 40.55 ml/min; Glucose 155 mg/dL (74-106); Potassium 3.1 mmol/L (3.5-5.1); Sodium Level 132 mmol/L (136-145)
[2024-05-08] MEDS: Finasteride 5 MG Tablet PO (08:01)
[2024-05-08] MEDS: dexAMETHasone 4 MG Tablet 6 MG PO (08:01)
[2024-05-08] MEDS: Escitalopram Oxalate 10 MG Tablet 5 MG PO (08:02)
[2024-05-08] MEDS: Donepezil HCl 10 MG Tablet PO (08:02)
[2024-05-08] MEDS: Senna/Docusate Sodium 1 Tablet 2 TABLET PO ×2 (08:03→22:22)
[2024-05-08] MEDS: Tuberculin,Purif.prot.deriv. 50 TU/ML Vial 0.1 ML ID (08:07)
[2024-05-08 10:01] VITALS: BP 146/67; PULSE 83; RESP 17; TEMP 35.8; O2SAT 99
[2024-05-08 13:54] VITALS: O2SAT 99
[2024-05-08] MEDS: Potassium Chloride Oral Tablet 20 MEQ 40 MEQ PO (13:55)
[2024-05-08] MEDS: QUEtiapine 25 MG Tablet PO (22:22)
[2024-05-09] MEDS: Enoxaparin 40 MG/0.4 ML Syringe SC (06:24)
[2024-05-09] MEDS: dexAMETHasone 4 MG Tablet 6 MG PO (09:24)
[2024-05-09] MEDS: Escitalopram Oxalate 10 MG Tablet 5 MG PO (09:25)
[2024-05-09] MEDS: Donepezil HCl 10 MG Tablet PO (09:25)
[2024-05-09] MEDS: Finasteride 5 MG Tablet PO (09:26)
[2024-05-09] MEDS: Senna/Docusate Sodium 1 Tablet 2 TABLET PO (09:26)
[2024-05-09 09:37] VITALS: BP 141/66; PULSE 69; RESP 16; TEMP 35.9; O2SAT 96
[2024-05-09 13:37] VITALS: O2SAT 96
[2024-05-09] MEDS: QUEtiapine 25 MG Tablet PO (21:15)
[2024-05-10] MEDS: Menthol/Lanolin/Calamine/Znox 113 GM Tube 1 APPLIC TOPICAL ×3 (01:08→22:46)
[2024-05-10] MEDS: Enoxaparin 40 MG/0.4 ML Syringe SC (05:38)
[2024-05-10 06:30] LABS: Anion Gap 6 (5-15); BUN 22 mg/dL (7-18); BUN/Creat Ratio 18.8 RATIO (10-20); Calcium,Total 9.1 mg/dL (8.5-10.1); Chloride 99 mmol/L (98-107); Creatinine, Serum 1.17 mg/dL (0.70-1.30); EST Glomerular Filtration Rate 63 mL/min (>60); Est Glom Filt Rate - Afr Amer 76 mL/min (>60); Glucose 90 mg/dL (74-106); Potassium 4.1 mmol/L (3.5-5.1); Sodium Level 135 mmol/L (136-145)
[2024-05-10 06:59] LABS: Absolute Lymphocyte Count 3.64 X10^3/uL (0.83-4.51); Absolute Neutrophil Count 6.7 X10^3/uL (2.0-7.7); Basophil# 0.03 X10^3/uL; Basophil% 0.2 % (0-1); Eosinophil# 0.25 X10^3/uL; Eosinophils% 2.1 % (0-5); Hematocrit 46.9 % (40-54); Hemoglobin 15.6 g/dL (13.0-16.5); Lymphocyte # 3.64 X10^3/ul (0.83-4.51); Lymphocyte % 30.1 % (19-41); Mean Corp Hgb Conc 33.3 g/dL (32-36); Mean Corpuscular Hgb 31.3 pg (27.0-32.0); Mean Corpuscular Volume 94.2 fL (80-94); Mean Platelet Vol. 10.5 fl (6.2-12.0); Monocyte% 8.3 % (0-10); NRBC Flagged by Analyzer 0.2 % (0-5); Neutrophil # 6.74 X10^3/uL (2.7-7.7); Neutrophil % 55.8 % (47-70); POSITIVE MORPHOLOGY YES; Platelet Count 328 K/mm3 (150-450); RBC Distribution Width CV 16.1 % (11.6-14.6); RBC Distribution Width SD 55.9 fl (35.1-43.9); Red Blood Count 4.98 M/mm3 (4.6-6.2); White Blood Count 12.1 K/mm3 (4.4-11.0)
[2024-05-10 07:25] LABS: Differential Indicated SCAN CRITERIA MET
[2024-05-10 08:00] VITALS: BP 124/60; PULSE 81; RESP 18; TEMP 36.2; O2SAT 94
[2024-05-10] MEDS: Donepezil HCl 10 MG Tablet PO (09:06)
[2024-05-10] MEDS: Escitalopram Oxalate 10 MG Tablet 5 MG PO (09:06)
[2024-05-10] MEDS: Finasteride 5 MG Tablet PO (09:07)
[2024-05-10] MEDS: dexAMETHasone 4 MG Tablet 6 MG PO (09:08)
[2024-05-10 20:00] VITALS: PULSE 82; O2SAT 95
[2024-05-10] MEDS: QUEtiapine 25 MG Tablet PO (22:45)
[2024-05-11] MEDS: Enoxaparin 40 MG/0.4 ML Syringe SC (05:20)
[2024-05-11 05:38] VITALS: PULSE 76; O2SAT 97
[2024-05-11 07:30] VITALS: BP 144/61; PULSE 72; RESP 16; TEMP 36.2; O2SAT 95
[2024-05-11] MEDS: Escitalopram Oxalate 10 MG Tablet 5 MG PO (08:01)
[2024-05-11] MEDS: Finasteride 5 MG Tablet PO (08:01)
[2024-05-11] MEDS: Donepezil HCl 10 MG Tablet PO (08:02)
[2024-05-11] MEDS: dexAMETHasone 4 MG Tablet 6 MG PO (08:02)
[2024-05-11] MEDS: Senna/Docusate Sodium 1 Tablet 2 TABLET PO ×2 (08:03→21:08)
[2024-05-11] MEDS: Menthol/Lanolin/Calamine/Znox 113 GM Tube 1 APPLIC TOPICAL ×2 (08:10→21:08)
[2024-05-11 18:02] VITALS: BMI 25.7
[2024-05-11] MEDS: QUEtiapine 25 MG Tablet PO (21:09)
[2024-05-12] MEDS: Enoxaparin 40 MG/0.4 ML Syringe SC (05:33)
[2024-05-12] MEDS: dexAMETHasone 4 MG Tablet 6 MG PO (09:21)
[2024-05-12] MEDS: Escitalopram Oxalate 10 MG Tablet 5 MG PO (09:29)
[2024-05-12] MEDS: Donepezil HCl 10 MG Tablet PO (09:29)
[2024-05-12] MEDS: Finasteride 5 MG Tablet PO (09:30)
[2024-05-12] MEDS: Menthol/Lanolin/Calamine/Znox 113 GM Tube 1 APPLIC TOPICAL ×2 (09:37→22:03)
[2024-05-12 09:49] VITALS: BP 128/60; PULSE 84; O2SAT 95
[2024-05-12 16:00] VITALS: RESP 16; TEMP 36.4
[2024-05-12 20:30] VITALS: PULSE 62; O2SAT 96
[2024-05-12] MEDS: QUEtiapine 25 MG Tablet PO (22:02)
[2024-05-12] MEDS: Senna/Docusate Sodium 1 Tablet 2 TABLET PO (22:03)
[2024-05-13 06:00] VITALS: PULSE 90; O2SAT 97
[2024-05-13] MEDS: Enoxaparin 40 MG/0.4 ML Syringe SC (06:08)
[2024-05-13 07:00] VITALS: O2SAT 95
[2024-05-13] MEDS: Donepezil HCl 10 MG Tablet PO (09:42)
[2024-05-13] MEDS: Escitalopram Oxalate 10 MG Tablet 5 MG PO (09:42)
[2024-05-13] MEDS: Finasteride 5 MG Tablet PO (09:43)
[2024-05-13] MEDS: Menthol/Lanolin/Calamine/Znox 113 GM Tube 1 APPLIC TOPICAL (09:44)
[2024-05-13 09:48] VITALS: BP 130/70; PULSE 82; RESP 16; TEMP 36.3; O2SAT 95
[2024-05-13 11:00] VITALS: BP 130/70; PULSE 82; RESP 16; TEMP 36.3; O2SAT 95
== END 2024-05-13 10:50 | disposition skilled nursing facility (03) | DRG 178 ==
PROVIDERS: Admitting Provider Internal Medicine; PCP Family Medicine; Referring Provider Internal Medicine; Visit Provider Internal Medicine
DX: U07.1 COVID-19 (principal); E87.1 Hypo-osmolality and hyponatremia; F03.90 Unspecified dementia, unspecified severity, without behavioral disturbance, psychotic disturbance, mood disturbance, and anxiety; I10 Essential (primary) hypertension; G25.81 Restless legs syndrome; F32.A Depression, unspecified; J20.8 Acute bronchitis due to other specified organisms; R73.9 Hyperglycemia, unspecified; N40.0 Benign prostatic hyperplasia without lower urinary tract symptoms; Z79.899 Other long term (current) drug therapy; T50.905D Adverse effect of unspecified drugs, medicaments and biological substances, subsequent encounter
CPT/HCPCS: 36415; 80048; 85025; 92523; 97110; 97116; 97162; 97166; 97530; 97535